=== PATIENT | female | born 1935 | race Caucasian/White ===

== ENCOUNTER 2018-04-05 15:05 | Emergency (ER) | payer MEDICARE, OTHER ==
[2018-04-05] MEDS ORDERED: MORPHINE SULFATE 10 MG/ML INJ IV ONE ×2 (16:20→19:03)
[2018-04-05] MEDS ORDERED: ONDANSETRON HCL INJ/PF 4 MG/2 ML SDV IV ONE (16:20)
--- NOTE | 2018-04-05 16:21 | ER Document Report ---
ED Medical Screen (RME) - General Chief Complaint: Fall Injury Stated Complaint: FALL/LEFT ARM PAIN Time Seen by Provider: 04/05/18 16:13 Mode of Arrival: Wheelchair Information source: Patient, Relative Notes: This is a frail 82-year-old woman who is brought to the emergency room after falling at home. Patient is sitting in the stretcher and states she tripped while in her closet. She denies any head injury. She denies any headache. She is complaining of left shoulder, left elbow, left chest wall pain. TRAVEL OUTSIDE OF THE [place] IN LAST 30 DAYS: No - Related Data Allergies/Adverse Reactions: No Known Allergies Allergy (Unverified 04/05/18 15:12) Physical Exam - Vital signs Vitals: Temp Pulse Resp BP Pulse Ox 98.3 F 59 L 18 156/63 H 100 04/05/18 15:19 04/05/18 15:19 04/05/18 15:19 04/05/18 15:19 04/05/18 15:19 Course - Vital Signs Vital signs: Temp Pulse Resp BP Pulse Ox 98.3 F 59 L 18 156/63 H 100 04/05/18 15:19 04/05/18 15:19 04/05/18 15:19 04/05/18 15:19 04/05/18 15:19 Doctor's Discharge - Discharge Referrals: DANIEL,NO [Primary Care Provider] - Follow up as needed
--- NOTE | 2018-04-05 17:35 | RADIOLOGY REPORT (SQ) ---
EXAM DESCRIPTION: ELBOW LEFT OVER 2 VIEWS COMPLETED DATE/TIME: 04/05/2018 4:03 pm REASON FOR STUDY: Fall at home-L arm pain/ can't move COMPARISON: None. NUMBER OF VIEWS: Four views. TECHNIQUE: AP, lateral, and both oblique radiographic images acquired of the left elbow. LIMITATIONS: None. FINDINGS: MINERALIZATION: Normal. BONES: No acute fracture or dislocation. No worrisome bone lesions. JOINT: No effusion. SOFT TISSUES: No soft tissue swelling. No foreign body. OTHER: No other significant finding. IMPRESSION: NEGATIVE STUDY OF THE LEFT ELBOW. NO RADIOGRAPHIC EVIDENCE OF ACUTE INJURY. TECHNICAL DOCUMENTATION: JOB ID: [id number] [employer]- All Rights Reserved Reading location - IP/workstation name: [email or web address]
--- NOTE | 2018-04-05 17:37 | RADIOLOGY REPORT (SQ) ---
EXAM DESCRIPTION: SHOULDER LEFT 2 OR MORE VIEWS COMPLETED DATE/TIME: 04/05/2018 4:03 pm REASON FOR STUDY: Fall at home-L arm pain/ can't move COMPARISON: None. NUMBER OF VIEWS: Three views. TECHNIQUE: Internal rotation, external rotation, and Y view images acquired of the left shoulder. LIMITATIONS: None. FINDINGS: MINERALIZATION: Normal. BONES: Subtle irregular linear radiolucency in the humeral neck. JOINTS: No dislocation. Degenerative changes in the glenohumeral joint with osteophytes. VISUALIZED LUNGS AND RIBS: No pneumothorax. No rib fracture. SOFT TISSUES: No radiopaque foreign body. OTHER: No other significant finding. IMPRESSION: SUBTLE NONDISPLACED FRACTURE OF THE HUMERAL NECK. TECHNICAL DOCUMENTATION: JOB ID: [id number] [employer]- All Rights Reserved Reading location - IP/workstation name: [email or web address]
--- NOTE | 2018-04-05 17:54 | RADIOLOGY REPORT (SQ) ---
EXAM DESCRIPTION: PELVIS AP COMPLETED DATE/TIME: 04/05/2018 5:01 pm REASON FOR STUDY: s/p fall COMPARISON: None. NUMBER OF VIEWS: One view TECHNIQUE: AP Pelvis LIMITATIONS: None. FINDINGS: MINERALIZATION: Normal. HIPS: No acute fracture or dislocation. No worrisome bone lesions. PELVIS AND SACRUM: No acute fracture or dislocation. No worrisome bone lesions. PUBIS AND ISCHIUM: No acute fracture. LOWER LUMBAR SPINE: No significant findings as visualized. SOFT TISSUES: Suture material throughout the pelvis. OTHER: No other significant finding. IMPRESSION: No acute finding. TECHNICAL DOCUMENTATION: JOB ID: [id number] [place]-72 2010 [employer]- All Rights Reserved Reading location - IP/workstation name: [email or web address]
--- NOTE | 2018-04-05 17:56 | RADIOLOGY REPORT (SQ) ---
EXAM DESCRIPTION: CHEST SINGLE VIEW COMPLETED DATE/TIME: 04/05/2018 5:01 pm REASON FOR STUDY: left chest wall pain COMPARISON: None. EXAM PARAMETERS: NUMBER OF VIEWS: One view. TECHNIQUE: Single frontal radiographic view of the chest acquired. RADIATION DOSE: NA LIMITATIONS: None. FINDINGS: LUNGS AND PLEURA: No opacities, masses or pneumothorax. No pleural effusion. MEDIASTINUM AND HILAR STRUCTURES: No masses. Contour normal. HEART AND VASCULAR STRUCTURES: Heart normal in size. Normal vasculature. BONES: No acute findings. HARDWARE: None in the chest. OTHER: No other significant finding. IMPRESSION: NO ACUTE RADIOGRAPHIC FINDING IN THE CHEST. TECHNICAL DOCUMENTATION: JOB ID: [id number] [place]-[id number] 2010 [employer]- All Rights Reserved Reading location - IP/workstation name: [email or web address]
[2018-04-05] MEDS ORDERED: TRAMADOL HCL 50 MG TABLET PO ONE (19:24)
[2018-04-05] MEDS ORDERED: LIDOCAINE 5% (700 MG) TRANSDERMAL ADH..PATCH TP ONE (19:25)
--- NOTE | 2018-04-05 19:28 | ER Document Report ---
ED General - General Chief Complaint: Fall Injury Stated Complaint: FALL/LEFT ARM PAIN Time Seen by Provider: 04/05/18 16:13 Mode of Arrival: Wheelchair TRAVEL OUTSIDE OF THE [place] IN LAST 30 DAYS: No - HPI Patient complains to provider of: Fall left arm pain Notes: Patient was seen today in ER after a fall. Patient was seen by the triage provider and the note is provided below This is a 82-year-old woman who is brought to the emergency room after falling at home. Patient is sitting in the stretcher and states she tripped while in her closet. She denies any head injury. She denies any headache. She is complaining of left shoulder, left elbow, left chest wall pain. Patient upon my evaluation alert and oriented. Patient states that she tripped and fell on a closet denies any head injury denies any headaches complaining of left shoulder left elbow and left chest wall pain. Patient states pain in the left shoulder especially with range of motion. Patient otherwise denies any other injuries denies any fever chills nausea vomiting diarrhea. Resting comfortably upon my evaluation. - Related Data Allergies/Adverse Reactions: No Known Allergies Allergy (Unverified 04/05/18 15:12) Past Medical History - General Information source: Patient, Relative - Social History Smoking Status: Former Smoker Family History: Reviewed & Not Pertinent Patient has suicidal ideation: No Patient has homicidal ideation: No - Past Medical History Cardiac Medical History: Reports: Hx Hypertension Renal/ Medical History: Denies: Hx Peritoneal Dialysis GI Medical History: Reports: Hx Gastroesophageal Reflux Disease Psychiatric Medical History: Reports: Hx Depression Review of Systems - Review of Systems Constitutional: No symptoms reported EENT: No symptoms reported Cardiovascular: No symptoms reported Respiratory: No symptoms reported Gastrointestinal: No symptoms reported Genitourinary: No symptoms reported Female Genitourinary: No symptoms reported Musculoskeletal: Other - Left shoulder pain Skin: No symptoms reported Hematologic/Lymphatic: No symptoms reported Neurological/Psychological: No symptoms reported -: Yes All other systems reviewed and negative Physical Exam - Vital signs Vitals: Temp Pulse Resp BP Pulse Ox 98.3 F 59 L 18 156/63 H 100 04/05/18 15:19 04/05/18 15:19 04/05/18 15:19 04/05/18 15:19 04/05/18 15:19 Interpretation: Normal - General General appearance: Appears well, Alert - HEENT Head: Normocephalic, Atraumatic Eyes: Normal Pupils: PERRL - Respiratory Respiratory status: No respiratory distress Chest status: Nontender Breath sounds: Normal Chest palpation: Normal - Cardiovascular Rhythm: Regular Heart sounds: Normal auscultation Murmur: No - Abdominal Inspection: Normal Distension: No distension Bowel sounds: Normal Tenderness: Nontender Organomegaly: No organomegaly - Back Back: Normal, Nontender - Extremities General upper extremity: Normal inspection, Tender, Normal color, Normal temperature, Other - Patient with significant pain with passive and active range of motion. Left shoulder right shoulder unaffected left shoulder also tender to palpation General lower extremity: Normal inspection, Nontender, Normal color, Normal ROM , Normal temperature, Normal weight bearing. No: Mirian's sign - Neurological Neuro grossly intact: Yes Cognition: Normal Orientation: AAOx4 Nicolette Coma Scale Eye Opening: Spontaneous Portia Coma Scale Verbal: Oriented Portia Coma Scale Motor: Obeys Commands Nicolette Coma Scale Total: 15 Speech: Normal Motor strength normal: LUE, RUE, LLE, RLE Sensory: Normal - Psychological Associated symptoms: Normal affect, Normal mood - Skin Skin Temperature: Warm Skin Moisture: Dry Skin Color: Normal Course - Re-evaluation Re-evalutation: 04/06/18 00:38 X-ray shows a proximal humeral fracture no other fracture seen on radiographical information. Patient was placed in a sling Ultram was given to the patient also educated the family members about use of Motrin also 1 the family members about GI upset and increased chance of GI bleeding. Recommend Tylenol follow-up with orthopedics as needed follow-up primary care physician patient also was warned about use of narcotic pain medication Ultram can cause increased risk of falls. Family understands all these instructions discharged home - Vital Signs Vital signs: Temp Pulse Resp BP Pulse Ox 98.3 F 81 17 188/54 H 98 04/05/18 19:47 04/05/18 19:47 04/05/18 19:47 04/05/18 19:47 04/05/18 19:47 Discharge - Discharge Clinical Impression: Fall Qualifiers: Encounter type: initial encounter Qualified Code(s): W19.XXXA - Unspecified fall, initial encounter Left humeral fracture Qualifiers: Encounter type: initial encounter Humerus Location: proximal Fracture type: closed Fracture morphology: unspecified fracture morphology Qualified Code(s): S42.202A - Unspecified fracture of upper end of left humerus, initial encounter for closed fracture Condition: Good Disposition: HOME, SELF-CARE Instructions: Family Physicians / Practices, Oral Narcotic Medication ([facility]), Fracture Proximal Humerus Additional Instructions: X-ray today shows fracture of the humerus on the left side. At this time we will treat you with a sling. I would highly recommend she follow-up with your primary care physician and orthopedic physician provided. Return to the ER if symptoms worsen. Would recommend Tylenol Motrin for pain control he may take Ultram for severe pain. Also may use ice packs warm packs. Return to ER symptoms worsen. Prescriptions: Tramadol HCl [Ultram 50 mg Tablet] 50 mg PO ASDIR PRN #20 tablet PRN Reason: Referrals: DANIEL,NO [NO LOCAL MD] - Follow up as needed KLAUS REDMAN MD [ACTIVE STAFF] - Follow up as needed
[2018-04-05 19:49] VITALS: BP 188/54
== END 2018-04-05 19:51 | disposition home or self-care (01) ==
LOC: ER 15:05
DX: S42.202A Unspecified fracture of upper end of left humerus, initial encounter for closed fracture (principal); M79.602 Pain in left arm; W01.0XXA Fall on same level from slipping, tripping and stumbling without subsequent striking against object, initial encounter; Y92.008 Other place in unspecified non-institutional (private) residence as the place of occurrence of the external cause; I10 Essential (primary) hypertension
CPT/HCPCS: 96376; 99283; 96374; 96375; 71045; 73080; 72170; 73030; J2270; J2405; A9270

== ENCOUNTER → 2018-04-07 | Outpatient (CLI) | payer MEDICARE, OTHER ==
--- NOTE | 2018-04-07 19:23 | RADIOLOGY REPORT (SQ) ---
EXAM DESCRIPTION: CT HEAD WITHOUT COMPLETED DATE/TIME: 04/07/2018 7:12 pm REASON FOR STUDY: I63.9 CEREBRAL INFARCTION, UNSPECIFIED I63.9 CEREBRAL INFARCTION, UNSPECIFIED COMPARISON: None. TECHNIQUE: Axial images acquired through the brain without intravenous contrast. Images reviewed wi th bone, brain and subdural windows. Additional sagittal and coronal reconstructions were generated. Images stored on PACS. All CT scanners at this facility use dose modulation, iterative reconstruction, and/or weight based d osing when appropriate to reduce radiation dose to as low as reasonably achievable (ALARA). [facility]: Dose Right [facility]: CareDose [facility]: Dose Right [facility]: Teradose 4D [facility]: [employer] RADIATION DOSE: CT Rad equipment meets quality standard of care and radiation dose reduction techniq ues were employed. CTDIvol: 53.2 mGy. DLP: 858 mGy-cm. mGy. LIMITATIONS: None. FINDINGS: VENTRICLES: Prominent ventricles secondary to involutional atrophy. CEREBRUM: No masses. No hemorrhage. No midline shift. No evidence for acute infarction. Few scatte red areas of low density in the white matter most likely chronic small vessel ischemic changes. CEREBELLUM: No masses. No hemorrhage. No alteration of density. No evidence for acute infarction. EXTRAAXIAL SPACES: No fluid collections. No masses. ORBITS AND GLOBE: No intra- or extraconal masses. Normal contour of globe without masses. CALVARIUM: No fracture. PARANASAL SINUSES: No fluid or mucosal thickening. SOFT TISSUES: No mass or hematoma. OTHER: No other significant finding. IMPRESSION: Mild involutional changes of aging with mild chronic microvascular ischemia. No acute i ntracranial imaging findings. EVIDENCE OF ACUTE STROKE: NO. COMMENT: Quality ID # [id number]: Final reports with documentation of one or more dose reduction techniques (e.g., Automated exposure control, adjustment of the mA and/or kV according to patient size, use of iterative reconstruction technique) TECHNICAL DOCUMENTATION: JOB ID: [id number] [employer]- All Rights Reserved Reading location - IP/workstation name: [email or web address]
== END ==
LOC: RAD 20:02
PROVIDERS: ATTEND Physician Assistant
DX: I63.9 Cerebral infarction, unspecified (principal)
CPT/HCPCS: 70450

== ENCOUNTER 2018-04-18 13:11 | Emergency (ER) | payer MEDICARE, OTHER ==
--- NOTE | 2018-04-18 13:40 | ER Document Report ---
ED Fall - General Chief Complaint: Fall Injury Stated Complaint: FALL Time Seen by Provider: 04/18/18 13:27 Notes: 82-year-old female with history of dementia tripped and fell at the [facility]. She complains of some mild left hip pain denies head or neck injury. She fell last week and fractured her left proximal humerus. She is in a sling for that she denies any increased pain from that but states the majority of her pain is in her left hip she describes it as sharp and severe with movement it is better with resting and lying still. Patient denies any chest pain or shortness of breath no headache no blurred vision no abdominal pain no nausea vomiting diarrhea. TRAVEL OUTSIDE OF THE [place] IN LAST 30 DAYS: No - Related data Allergies/Adverse Reactions: No Known Allergies Allergy (Unverified 04/05/18 15:12) Past Medical History - Social History Smoking Status: Unknown if Ever Smoked Chew tobacco use (# tins/day): No Frequency of alcohol use: None Drug Abuse: None Family History: Reviewed & Not Pertinent Patient has suicidal ideation: No Patient has homicidal ideation: No - Past Medical History Cardiac Medical History: Reports: Hx Hypertension Renal/ Medical History: Denies: Hx Peritoneal Dialysis GI Medical History: Reports: Hx Gastroesophageal Reflux Disease Psychiatric Medical History: Reports: Hx Depression Review of Systems - Review of Systems Constitutional: denies: Chills, Fever Cardiovascular: denies: Chest pain, Dyspnea Gastrointestinal: denies: Abdominal pain, Nausea, Vomiting Musculoskeletal: Joint pain Neurological/Psychological: denies: Headaches -: Yes All other systems reviewed and negative Physical Exam - Notes Notes: GENERAL_APPEARANCE: well_nourished, alert, cooperative, no_acute_distress, no_ obvious_discomfort. VITALS: reviewed, see vital signs table. HEAD: no_swelling\tenderness on the head. EYES: PERRL, EOMI, conjunctiva_clear. NOSE: no_nasal_discharge. MOUTH: (-)decreased moisture. THROAT: no_throat_inflammation, no_airway_obstruction. no_lymphadenopathy NECK: supple, no_neck_tenderness, (-)thyromegaly. BACK: no_back_tenderness. CHEST_WALL: no_chest_tenderness. LUNGS: no_wheezing, no_rales, no_rhonchi, (-)accessory muscle use, good air exchange bilateral. HEART: normal_rate, normal_rhythm ABDOMEN:soft, no_abd_tenderness, (-)guarding, (-)rebound, no_organomegaly, no_ abd_masses. EXTREMITIES: There is some tenderness of the left greater trochanter, there is no rotation or shortening, there are strong dorsalis pedis and posterior tibial pulses in the left foot. SKIN: warm, dry, good_color, no_rash. MENTAL_STATUS: speech_clear, oriented_person and place but not time, normal_ affect, responds_appropriately to questions. NEURO: Neg Motor or Sensory Deficits on exam, CN 2-12 intact, DTR 2+ symmetric x 4, No cerbellar signs Course - Re-evaluation Re-evalutation: 04/18/18 13:39 82-year-old female with a mechanical fall no syncope presents to the ER complaining of left hip pain. Get an x-ray of the left hip she complains of no head or neck pain. Has history of an old fracture on the left humerus however it is not bothering her she is in a sling. She denies injuring this. 04/18/18 15:01 X-rays show no fractures. Again clinically there is no fracture there is no rotation or shortening. Patient is comfortable going home. Patient will be discharged again there is no head or neck injuries noted no neuro deficits. - Diagnostic Test Radiology reviewed: Reports reviewed Radiology results interpreted by me: 04/18/18 15:01 Hip X-Ray 04/18/18 13:36 IMPRESSION: NEGATIVE STUDY OF THE LEFT HIP AND PELVIS. NO RADIOGRAPHIC EVIDENCE OF ACUTE INJURY. Discharge - Discharge Clinical Impression: Contusion of hip, right Qualifiers: Encounter type: initial encounter Qualified Code(s): S70.01XA - Contusion of right hip, initial encounter Condition: Good Disposition: HOME, SELF-CARE Instructions: Contusion ([facility]) Referrals: LOCALMD,NO [NO LOCAL MD] - Follow up as needed
--- NOTE | 2018-04-18 14:21 | RADIOLOGY REPORT (SQ) ---
EXAM DESCRIPTION: HIP LEFT AP/LATERAL COMPLETED DATE/TIME: 04/18/2018 2:12 pm REASON FOR STUDY: fall pain COMPARISON: 04/05/2018 NUMBER OF VIEWS: Two views. TECHNIQUE: AP pelvis and additional frog-leg view of the left hip. LIMITATIONS: None. FINDINGS: MINERALIZATION: Normal. LEFT HIP: No fracture or dislocation. No worrisome bone lesions. RIGHT HIP: No fracture or dislocation. No worrisome bone lesions. PUBIS AND ISCHIUM: No fracture. PELVIS: No fracture. SACRUM: No fracture or dislocation. No worrisome bone lesions. LOWER LUMBAR SPINE: No fracture or dislocation. No worrisome bone lesions. No significant disc disea se. SOFT TISSUES: No findings. OTHER: No other significant finding. IMPRESSION: NEGATIVE STUDY OF THE LEFT HIP AND PELVIS. NO RADIOGRAPHIC EVIDENCE OF ACUTE INJURY. TECHNICAL DOCUMENTATION: JOB ID: [id number] [employer]- All Rights Reserved Reading location - IP/workstation name: [email or web address]
[2018-04-18 15:45] VITALS: BP 116/72
== END 2018-04-18 15:44 | disposition home or self-care (01) ==
LOC: ER 13:11
DX: S70.01XA Contusion of right hip, initial encounter (principal); W01.0XXA Fall on same level from slipping, tripping and stumbling without subsequent striking against object, initial encounter; Y92.129 Unspecified place in nursing home as the place of occurrence of the external cause; I10 Essential (primary) hypertension; K21.9 Gastro-esophageal reflux disease without esophagitis
CPT/HCPCS: 99284

== ENCOUNTER 2018-05-22 20:24 | Inpatient (IN) | payer MEDICARE, OTHER ==
[2018-05-22] MEDS ORDERED: NORMAL SALINE 500 ML IV ONE (21:26)
--- NOTE | 2018-05-22 21:26 | ER Document Report ---
ED General - General Chief Complaint: Fever Stated Complaint: FEVER Time Seen by Provider: 05/22/18 20:38 Notes: 82-year-old female to the emergency department for evaluation of fever. Patient lives in a nursing facility. Has a previous stroke. Reportedly had fever while at the nursing facility and complaining of abdominal pain and achy all over. Tylenol was given prior to transport. Patient states that she feels a little bit better. TRAVEL OUTSIDE OF THE [place] IN LAST 30 DAYS: No - HPI Onset: This morning Onset/Duration: Gradual, Worse Quality of pain: Achy Severity: Moderate Pain Level: 3 Associated symptoms: Body/muscle aches, Fever - Related Data Allergies/Adverse Reactions: No Known Allergies Allergy (Unverified 04/05/18 15:12) Past Medical History - General Information source: Patient, Outside Facility Records - Social History Smoking Status: Never Smoker Frequency of alcohol use: None Drug Abuse: None Lives with: [facility] Family History: Reviewed & Not Pertinent - Past Medical History Cardiac Medical History: Reports: Hx Hypertension Neurological Medical History: Reports: Hx Cerebrovascular Accident Renal/ Medical History: Denies: Hx Peritoneal Dialysis GI Medical History: Reports: Hx Gastroesophageal Reflux Disease Psychiatric Medical History: Reports: Hx Depression Review of Systems - Review of Systems Notes: Constitutional: denies: Chills, Diaphoresis,. History of fevers, chills EENT: denies: Eye discharge, Blurred vision, Tearing, Double vision, Nose congestion, Nose discharge, Throat swelling, Mouth pain Cardiovascular: denies: Palpitations, Heart racing, Orthopnea, Dyspnea, Chest pain Respiratory: denies: Cough, Hurts to breathe, Wheezing, Shortness of breath Gastrointestinal:. Complaining of right upper quadrant abdominal pain, no vomit ing. No diarrhea. Genitourinary: denies: Burning, Dysuria, Discharge, Frequency, Flank pain, Hemat uria Musculoskeletal: denies: Joint pain, Joint swelling,. Complaining of diffuse myalgias and arthralgias Hematologic/Lymphatic: denies: Anemia, Easy bleeding, Easy bruising, Blood clots Neurological/Psychological: History of previous stroke with dysarthria. No focal weakness. Skin: No lesions, no masses, no skin breakdown, no abscesses Physical Exam - Vital signs Vitals: Temp Resp Pulse Ox 98.3 F 20 93 05/22/18 20:36 05/22/18 20:36 05/22/18 20:36 Interpretation: Normal - General General appearance: Appears well, Alert - HEENT Head: Normocephalic, Atraumatic Eyes: Normal Pupils: PERRL - Respiratory Respiratory status: No respiratory distress Chest status: Nontender Breath sounds: Normal Chest palpation: Normal - Cardiovascular Rhythm: Regular Heart sounds: Normal auscultation Murmur: No - Abdominal Inspection: Normal Distension: No distension Bowel sounds: Normal Tenderness: Tender - Right upper quadrant tenderness. Epigastric tenderness.. No: Guarding, Rebound Organomegaly: No organomegaly - Back Back: Normal, Nontender - Extremities General upper extremity: Normal inspection, Nontender, Normal color, Normal ROM, Normal temperature General lower extremity: Normal inspection, Nontender, Normal color, Normal ROM, Normal temperature. No: Mirian's sign - Neurological Neuro grossly intact: Yes Cognition: Normal Orientation: AAOx4 Russell Coma Scale Eye Opening: Spontaneous Nicolette Coma Scale Verbal: Oriented Nicolette Coma Scale Motor: Obeys Commands Nicolette Coma Scale Total: 15 Speech: Normal, Expressive aphasia - Mild but noticeable expressive aphasia Motor strength normal: LUE, RUE, LLE, RLE Sensory: Normal - Psychological Associated symptoms: Normal affect, Normal mood - Skin Skin Temperature: Warm Skin Moisture: Dry Skin Color: Normal Course - Re-evaluation Re-evalutation: 05/23/18 00:06 Laboratory 05/22/18 05/22/18 05/22/18 21:21 21:42 21:42 WBC 25.6 H RBC 4.00 Hgb 11.6 L Hct 35.0 L MCV 87 MCH 29.0 MCHC 33.2 RDW 14.9 H Plt Count 205 Total Counted 100 Seg Neutrophils % Not Reportable Seg Neuts % (Manual) 93 H Lymphocytes % Not Reportable Lymphocytes % (Manual) 4 L Monocytes % Not Reportable Monocytes % (Manual) 2 L Eosinophils % Not Reportable Eosinophils % (Manual) 0 Basophils % Not Reportable Basophils % (Manual) 1 Absolute Neutrophils Not Reportable Abs Neuts (Manual) 23.8 H Absolute Lymphocytes Not Reportable Abs Lymphs (Manual) 1.0 Absolute Monocytes Not Reportable Abs Monocytes (Manual) 0.5 Absolute Eosinophils Not Reportable Absolute Eos (Manual) 0.0 Absolute Basophils Not Reportable Abs Basophils (Manual) 0.3 H Toxic Granulation 2+ Large Platelets PRESENT Platelet Comment ADEQUATE Sodium 137.3 Potassium 4.0 Chloride 106 Carbon Dioxide 20 L Anion Gap 11 BUN 35 H Creatinine 1.24 Est GFR ( Amer) 50 L Est GFR (Non-Af Amer) 41 L Glucose 163 H Lactic Acid Calcium 9.0 Total Bilirubin 0.5 Direct Bilirubin 0.2 Neonat Total Bilirubin Not Reportable Neonat Direct Bilirubin Not Reportable Neonat Indirect Bili Not Reportable AST 55 H ALT 31 Alkaline Phosphatase 93 Creatine Kinase 960 H CK-MB (CK-2) Troponin I Total Protein 6.3 Albumin 3.6 Lipase 77.9 Urine Color YELLOW Urine Appearance SLIGHTLY-CLOUDY Urine pH 5.0 Ur Specific Ranger 1.015 Urine Protein 30 H Urine Glucose (UA) NEGATIVE Urine Ketones NEGATIVE Urine Blood NEGATIVE Urine Nitrite NEGATIVE Urine Bilirubin NEGATIVE Urine Urobilinogen NEGATIVE Ur Leukocyte Esterase SMALL H Urine WBC (Auto) 25 Urine RBC (Auto) 1 Urine Bacteria (Auto) TRACE Squamous Epi Cells Auto <1 Urine Mucus (Auto) RARE Urine Ascorbic Acid NEGATIVE 05/22/18 05/22/18 21:42 22:32 WBC RBC Hgb Hct MCV MCH MCHC RDW Plt Count Total Counted Seg Neutrophils % Seg Neuts % (Manual) Lymphocytes % Lymphocytes % (Manual) Monocytes % Monocytes % (Manual) Eosinophils % Eosinophils % (Manual) Basophils % Basophils % (Manual) Absolute Neutrophils Abs Neuts (Manual) Absolute Lymphocytes Abs Lymphs (Manual) Absolute Monocytes Abs Monocytes (Manual) Absolute Eosinophils Absolute Eos (Manual) Absolute Basophils Abs Basophils (Manual) Toxic Granulation Large Platelets Platelet Comment Sodium Potassium Chloride Carbon Dioxide Anion Gap BUN Creatinine Est GFR ( Amer) Est GFR (Non-Af Amer) Glucose Lactic Acid 0.7 Calcium Total Bilirubin Direct Bilirubin Neonat Total Bilirubin Neonat Direct Bilirubin Neonat Indirect Bili AST ALT Alkaline Phosphatase Creatine Kinase CK-MB (CK-2) 6.47 H Troponin I 0.022 Total Protein Albumin Lipase Urine Color Urine Appearance Urine pH Ur Specific Ranger Urine Protein Urine Glucose (UA) Urine Ketones Urine Blood Urine Nitrite Urine Bilirubin Urine Urobilinogen Ur Leukocyte Esterase Urine WBC (Auto) Urine RBC (Auto) Urine Bacteria (Auto) Squamous Epi Cells Auto Urine Mucus (Auto) Urine Ascorbic Acid 05/23/18 00:19 Abdomen Ultrasound 05/22/18 21:25 IMPRESSION: The gallbladder could not be visualized, due to body habitus and inability to position patient correctly. The common bile duct is normal. 7 cm cyst in the right kidney. Chest X-Ray 05/22/18 21:25 IMPRESSION: No acute cardiopulmonary abnormality. Abdomen/Pelvis CT 05/22/18 22:54 IMPRESSION: Fluid within the proximal two thirds of the gallbladder which could be secondary to an underlying diarrheal process. Possible developing bibasilar pneumonia. Patient has pneumonia seen on CT scan. Her oxygen saturations are dropping now also placing on oxygen. More likely this represents a source of her leukocytos is and fever. At this time will start her on antibiotics and admit the patient to the hospital medicine service for further treatment. - Vital Signs Vital signs: Temp Pulse Resp BP Pulse Ox 98.3 F 15 142/58 H 94 05/22/18 20:36 05/22/18 21:01 05/22/18 21:01 05/22/18 21:01 - Laboratory Result Diagrams: 05/22/18 21:42 05/22/18 21:42 Laboratory results interpreted by me: 05/22/18 05/22/18 05/22/18 21:21 21:42 21:42 WBC 25.6 H Hgb 11.6 L Hct 35.0 L RDW 14.9 H Seg Neuts % (Manual) 93 H Lymphocytes % (Manual) 4 L Monocytes % (Manual) 2 L Abs Neuts (Manual) 23.8 H Abs Basophils (Manual) 0.3 H Carbon Dioxide 20 L BUN 35 H Est GFR ( Amer) 50 L Est GFR (Non-Af Amer) 41 L Glucose 163 H AST 55 H Creatine Kinase 960 H CK-MB (CK-2) Urine Protein 30 H Ur Leukocyte Esterase SMALL H 05/22/18 21:42 WBC Hgb Hct RDW Seg Neuts % (Manual) Lymphocytes % (Manual) Monocytes % (Manual) Abs Neuts (Manual) Abs Basophils (Manual) Carbon Dioxide BUN Est GFR ( Amer) Est GFR (Non-Af Amer) Glucose AST Creatine Kinase CK-MB (CK-2) 6.47 H Urine Protein Ur Leukocyte Esterase - EKG Interpretation by Nv EKG shows normal: Sinus rhythm, Rhododendron, QRS Complexes, ST-T Waves Rhododendron/QRS: RBBB When compared to previous EKG there are: No significant change Discharge - Discharge Clinical Impression: Lower lobe pneumonia Qualifiers: Pneumonia type: due to unspecified organism Laterality: bilateral Qualified Code(s): J18.1 - Lobar pneumonia, unspecified organism Leukocytosis Qualifiers: Leukocytosis type: bandemia Qualified Code(s): D72.825 - Bandemia Condition: Good Disposition: ADMITTED INPATIENT [facility] Admitted: Telemetry Referrals: LIAN TERRY MD [Primary Care Provider] - Follow up as needed
[2018-05-22 21:39] LABS: APPEARANCE,URINE SLIGHTLY-CLOUDY; BILIRUBIN,URINE NEGATIVE (NEGATIVE); COLOR,URINE YELLOW; GLUCOSE, URINE NEGATIVE (NEGATIVE); KETONES,URINE NEGATIVE (NEGATIVE); LEUKOCYTE ESTERASE,URINE SMALL (NEGATIVE); NITRITE,URINE NEGATIVE (NEGATIVE); PROTEIN,URINE 30 mg/dL (NEGATIVE); URINE SPECIFIC GRAVITY 1.015; UROBILINOGEN,URINE NEGATIVE mg/dL (<2.0)
[2018-05-22 21:53] LABS: HEMOGLOBIN 11.6 g/dL (12.0-15.5); MEAN CORPUSCULAR HGB CONC 33.2 g/dL (32.0-36.0); MEAN CORPUSCULAR VOLUME 87 fl (80-97); PLATELET COUNT 205 10^3/uL (150-450); RED CELL DISTRIBUTION WIDTH 14.9 % (11.5-14.0); WHITE BLOOD COUNT 25.6 10^3/uL (4.0-10.5)
--- NOTE | 2018-05-22 22:00 | RADIOLOGY REPORT (SQ) ---
XR CHEST 1 VIEW HISTORY: Chest pain. COMPARISON: 04/05/2018 FINDINGS: The cardiomediastinal silhouette is unremarkable. The lungs are clear. No pleural effusion or pneumothorax is identified. IMPRESSION: No acute cardiopulmonary abnormality.
[2018-05-22 22:15] LABS: ABSOLUTE MONOCYTES # (MANUAL) 0.5 10^3/uL (0.1-1.4); ABSOLUTE NEUTROPHILS# (MANUAL) 23.8 10^3/uL (1.7-8.2); BASOPHILS % (MANUAL) 1 % (0-2); EOSINOPHILS % (MANUAL) 0 % (0-6); LYMPHOCYTES % (MANUAL) 4 % (13-45); MONOCYTES % (MANUAL) 2 % (3-13); PLATELET COMMENT ADEQUATE; PLATELET LARGE PRESENT; SEGMENTED NEUTROPHILS % (MAN) 93 % (42-78); TOTAL CELLS COUNTED 100; TOXIC GRANULATION 2+
[2018-05-22 22:16] LABS: ALANINE AMINOTRANSFERASE 31 U/L (9-52); ALBUMIN 3.6 g/dL (3.5-5.0); ALKALINE PHOSPHATASE 93 U/L (38-126); ANION GAP 11 (5-19); ASPARTATE AMINO TRANSFERASE 55 U/L (14-36); BILIRUBIN,DIRECT 0.2 mg/dL (0.0-0.4); BILIRUBIN,TOTAL 0.5 mg/dL (0.2-1.3); BLOOD UREA NITROGEN 35 mg/dL (7-20); CARBON DIOXIDE 20 mmol/L (22-30); CHLORIDE 106 mmol/L (98-107); CREATINE KINASE 960 U/L (30-135); GLUCOSE 163 mg/dL (75-110); LIPASE 77.9 U/L (23-300); SODIUM 137.3 mmol/L (137-145); TOTAL PROTEIN 6.3 g/dL (6.3-8.2)
[2018-05-22 22:27] LABS: CREATINE KINASE MB 6.47 ng/mL (<4.55); TROPONIN I 0.022 ng/mL
--- NOTE | 2018-05-22 22:37 | RADIOLOGY REPORT (SQ) ---
US ABDOMEN LIMITED HISTORY: Right upper quadrant pain. COMPARISON: None. TECHNIQUE: Grayscale and color Doppler imaging of the right upper quadrant was performed. FINDINGS: The liver measures 13.9 cm. The liver has normal echotexture without focal lesion identified. The main portal vein has normal hepatopedal flow. The gallbladder is poorly visualized. The common bile duct measures 3 mm in caliber. The pancreas is not visualized due to overlying bowel gas. The right kidney measures 10.4 cm in length, without hydronephrosis. There is a 7 cm anechoic cyst in the lower pole. The visualized portions of the IVC and aorta are patent. IMPRESSION: The gallbladder could not be visualized, due to body habitus and inability to position patient correctly. The common bile duct is normal. 7 cm cyst in the right kidney.
[2018-05-22] MEDS ORDERED: CEFTRIAXONE INJ 1000 MG VIAL IV ONE (22:55)
[2018-05-22] MEDS ORDERED: KETOROLAC TROMETHAMINE INJ/PF 30 MG/1 ML SDV IV ONE (23:33)
--- NOTE | 2018-05-22 23:51 | RADIOLOGY REPORT (SQ) ---
CLINICAL HISTORY: abd pain, fever, leukocytosis COMPARISON: None. TECHNIQUE: CT ABDOMEN PELVIS WITH IV CONTRAST on 05/22/2018 10:54 PM [employer] This exam was performed according to our departmental dose-optimization program, which includes automated exposure control, adjustment of the mA and/or kV according to patient size and/or use of iterative reconstruction technique. FINDINGS: There is a small consolidation in the posterior medial right lower lobe. There are scattered tree-in-bud nodular opacities in the lower lobes. Abdomen: The liver is normal in appearance. There is no biliary dilatation. Cholecystectomy was performed. Spleen is normal in size. Pancreas is atrophic. Adrenal glands are normal. Kidneys are mildly atrophic. There is a large simple cyst in the lower pole of the right kidney measuring 6.7 cm. Abdominal aorta is normal in course and caliber without aneurysm. There is no free air. There is no retroperitoneal adenopathy.Abdominal aorta is densely calcified without aneurysm. Pelvis: There are scattered fluid throughout the proximal two thirds of the colon. Urinary bladder is unremarkable. There is no free fluid. Apparent hysterectomy was performed. Appendix is normal. Skeleton: There are no acute osseous findings. No suspicious bony lesions. IMPRESSION: Fluid within the proximal two thirds of the gallbladder which could be secondary to an underlying diarrheal process. Possible developing bibasilar pneumonia.
[2018-05-23] MEDS ORDERED: AZITHROMYCIN INJ 500 MG VIAL IV ONE ×2 (00:19→21:38)
[2018-05-23] MEDS ORDERED: NORMAL SALINE 1000 ML 1,000 ML IV ONE (00:26)
[2018-05-23] MEDS ORDERED: FLUTICASONE NASAL SPRAY 50 MCG/SPRY 120 SPRAY/16 GM NASL ONE (01:30)
[2018-05-23] MEDS ORDERED: CHLORPHENIRAMINE MALEATE 4 MG TABLET PO ONE (01:30)
[2018-05-23] MEDS: METRONIDAZOLE 500 MG TABLET PO SCH ×4 (01:55→19:36)
[2018-05-23] MEDS ORDERED: CHLORPHENIRAMINE MALEATE 4 MG TABLET ONE (03:51)
[2018-05-23] MEDS ORDERED: FLUTICASONE NASAL SPRAY 50 MCG/SPRY 120 SPRAY/16 GM ONE (03:51)
[2018-05-23 05:21] LABS: HEMATOCRIT 30.8 % (36.0-47.0); HEMOGLOBIN 10.3 g/dL (12.0-15.5); MEAN CORPUSCULAR HEMOGLOBIN 29.3 pg (27.0-33.4); MEAN CORPUSCULAR HGB CONC 33.4 g/dL (32.0-36.0); MEAN CORPUSCULAR VOLUME 88 fl (80-97); PLATELET COUNT 164 10^3/uL (150-450); RED BLOOD COUNT 3.51 10^6/uL (3.72-5.28); RED CELL DISTRIBUTION WIDTH 14.8 % (11.5-14.0)
[2018-05-23 05:45] LABS: ANION GAP 9 (5-19); BLOOD UREA NITROGEN 31 mg/dL (7-20); CALCIUM 8.4 mg/dL (8.4-10.2); CARBON DIOXIDE 21 mmol/L (22-30); CHLORIDE 109 mmol/L (98-107); GLUCOSE 163 mg/dL (75-110); POTASSIUM 3.6 mmol/L (3.6-5.0); SODIUM 138.9 mmol/L (137-145)
--- NOTE | 2018-05-23 05:56 | PDOC H&P ---
History of Present Illness Admission Date/PCP: 05/23/18 00:46 LIAN TERRY MD Patient complains of: Abdominal pain History of Present Illness: LIAN JO is a 82 year old female assisted living resident with past medical history of CVA and dementia. She presents with abdominal pain. In the emergency room she has a CT that suggest colitis and possible early bilateral pneumonia. She started on empiric antibiotics and referred to the hospitalist for admission. Patient is a poor historian but does endorse abdominal pain and diarrhea. No recent history of antibiotics, denies nausea or vomiting. Past Medical History Cardiac Medical History: Reports: Hypertension Pulmonary Medical History: Reports: Chronic Obstructive Pulmonary Disease (COPD) Neurological Medical History: Reports: Ischemic CVA GI Medical History: Reports: Gastroesophageal Reflux Disease Psychiatric Medical History: Reports: Depression Social History Information Source: Patient, Emergency Med Personnel, [facility], [facility]1983 Records Lives with: [facility] Smoking Status: Never Smoker - Advance Directive Resuscitation Status: Full Code Family History Family History: Other - Unobtainable Parental Family History Reviewed: No - Unobtainable Children Family History Reviewed: No - Unobtainable Sibling(s) Family History Reviewed.: No - Unobtainable Medication/Allergy Home Medications: Tramadol HCl [Ultram 50 mg Tablet] 50 mg PO ASDIR PRN #20 tablet 04/05/18 Allergies/Adverse Reactions: No Known Allergies Allergy (Unverified 04/05/18 15:12) Review of Systems ROS unobtainable: Due to mental status - Dementia Physical Exam Vital Signs: Temp Pulse Resp BP Pulse Ox 98.3 F 63 16 132/76 H 96 05/23/18 02:30 05/23/18 03:52 05/23/18 02:30 05/23/18 02:30 05/23/18 02:30 Intake & Output 05/21/18 05/22/18 05/23/18 11:59 11:59 11:59 Intake Total 500 Balance 500 Weight 43.1 kg General appearance: PRESENT: cooperative, mild distress, thin Head exam: PRESENT: atraumatic, normocephalic Eye exam: PRESENT: conjunctiva pink, EOMI, PERRLA. ABSENT: scleral icterus Ear exam: PRESENT: normal external ear exam Mouth exam: PRESENT: moist, tongue midline Neck exam: ABSENT: carotid bruit, JVD, lymphadenopathy, thyromegaly Respiratory exam: PRESENT: accessory muscle use, crackles, prolonged expiratory phas. ABSENT: rales, rhonchi, wheezes Cardiovascular exam: PRESENT: RRR, tachycardia. ABSENT: diastolic murmur, rubs, systolic murmur Pulses: PRESENT: normal dorsalis pedis pul Vascular exam: PRESENT: normal capillary refill GI/Abdominal exam: PRESENT: distended, hyperactive bowel sounds, normal bowel sounds, soft, tenderness. ABSENT: guarding, mass, organolmegaly, rebound Rectal exam: PRESENT: deferred Extremities exam: PRESENT: full ROM. ABSENT: calf tenderness, clubbing, pedal edema Neurological exam: PRESENT: alert, awake, oriented to person, oriented to place, oriented to time, oriented to situation, CN II-XII grossly intact. ABSENT: motor sensory deficit Psychiatric exam: PRESENT: appropriate affect, normal mood. ABSENT: homicidal ideation, suicidal ideation Skin exam: PRESENT: dry, intact, warm. ABSENT: cyanosis, rash Results Laboratory Results: 05/23/18 04:24 05/22/18 05/22/18 05/22/18 21:21 21:42 21:42 WBC 25.6 H RBC 4.00 Hgb 11.6 L Hct 35.0 L MCV 87 MCH 29.0 MCHC 33.2 RDW 14.9 H Plt Count 205 Seg Neutrophils % Not Reportable Lymphocytes % Not Reportable Monocytes % Not Reportable Eosinophils % Not Reportable Basophils % Not Reportable Absolute Neutrophils Not Reportable Absolute Lymphocytes Not Reportable Absolute Monocytes Not Reportable Absolute Eosinophils Not Reportable Absolute Basophils Not Reportable Sodium 137.3 Potassium 4.0 Chloride 106 Carbon Dioxide 20 L Anion Gap 11 BUN 35 H Creatinine 1.24 Est GFR ( Amer) 50 L Est GFR (Non-Af Amer) 41 L Glucose 163 H Lactic Acid Calcium 9.0 Total Bilirubin 0.5 AST 55 H ALT 31 Alkaline Phosphatase 93 Total Protein 6.3 Albumin 3.6 Lipase 77.9 Urine Color YELLOW Urine Appearance SLIGHTLY-CLOUDY Urine pH 5.0 Ur Specific [place] 1.015 Urine Protein 30 H Urine Glucose (UA) NEGATIVE Urine Ketones NEGATIVE Urine Blood NEGATIVE Urine Nitrite NEGATIVE Ur Leukocyte Esterase SMALL H Urine WBC (Auto) 25 Urine RBC (Auto) 1 05/22/18 05/23/18 05/23/18 22:32 04:24 04:24 WBC RBC Hgb Hct MCV MCH MCHC RDW Plt Count Seg Neutrophils % Not Reportable Lymphocytes % Not Reportable Monocytes % Not Reportable Eosinophils % Not Reportable Basophils % Not Reportable Absolute Neutrophils Not Reportable Absolute Lymphocytes Not Reportable Absolute Monocytes Not Reportable Absolute Eosinophils Not Reportable Absolute Basophils Not Reportable Sodium 138.9 Potassium 3.6 Chloride 109 H Carbon Dioxide 21 L Anion Gap 9 BUN 31 H Creatinine 1.03 Est GFR ( Amer) > 60 Est GFR (Non-Af Amer) 51 L Glucose 163 H Lactic Acid 0.7 Calcium 8.4 Total Bilirubin AST ALT Alkaline Phosphatase Total Protein Albumin Lipase Urine Color Urine Appearance Urine pH Ur Specific [place] Urine Protein Urine Glucose (UA) Urine Ketones Urine Blood Urine Nitrite Ur Leukocyte Esterase Urine WBC (Auto) Urine RBC (Auto) 05/22/18 05/22/18 21:42 21:42 Creatine Kinase 960 H CK-MB (CK-2) 6.47 H Troponin I 0.022 Impressions: Abdomen Ultrasound 05/22/18 21:25 IMPRESSION: The gallbladder could not be visualized, due to body habitus and inability to position patient correctly. The common bile duct is normal. 7 cm cyst in the right kidney. Chest X-Ray 05/22/18 21:25 IMPRESSION: No acute cardiopulmonary abnormality. Abdomen/Pelvis CT 05/22/18 22:54 IMPRESSION: Fluid within the proximal two thirds of the gallbladder which could be secondary to an underlying diarrheal process. Possible developing bibasilar pneumonia. Assessment & Plan - Diagnosis (1) Colitis Is this a current diagnosis for this admission?: Yes Plan: Bowel rest, Flagyl and Levaquin. Follow-up stool culture and CBC (2) Lower lobe pneumonia Qualifiers: Pneumonia type: due to unspecified organism Laterality: bilateral Qualified Code(s): J18.1 - Lobar pneumonia, unspecified organism Is this a current diagnosis for this admission?: Yes Plan: Albuterol and Atrovent, incentive spirometry, empiric antibiotics, follow-up CBC consider follow-up chest x-ray. (3) Dementia Is this a current diagnosis for this admission?: Yes Plan: Supportive care - Time Time Spent: 30 to 50 Minutes - Inpatient Certification Medical Necessity: Need Close Monitoring Due to Risk of Patient Decompensation
[2018-05-23 06:00] LABS: ABSOLUTE LYMPHOCYTES# (MANUAL) 1.3 10^3/uL (0.5-4.7); ABSOLUTE MONOCYTES # (MANUAL) 0.6 10^3/uL (0.1-1.4); ABSOLUTE NEUTROPHILS# (MANUAL) 19.1 10^3/uL (1.7-8.2); BASOPHILS % (MANUAL) 0 % (0-2); EOSINOPHILS % (MANUAL) 0 % (0-6); LYMPHOCYTES % (MANUAL) 6 % (13-45); MONOCYTES % (MANUAL) 3 % (3-13); SEGMENTED NEUTROPHILS % (MAN) 91 % (42-78); TOTAL CELLS COUNTED 100
[2018-05-23 06:01] LABS: PLATELET COMMENT ADEQUATE; RBC MORPHOLOGY COMMENT NORMO-CYTIC/CHROMIC
[2018-05-23] MEDS: HEPARIN SOD (PORCINE) 5,000 UNIT/ML 1 ML SYRINGE SUBCUT SCH ×3 (06:08→21:34)
--- NOTE | 2018-05-23 06:34 | EKG REPORT ---
SEVERITY:- ABNORMAL ECG - SINUS RHYTHM RBBB AND LAFB : Confirmed by: Fabian Muhammad MD 23-May-2018 06:33:05
[2018-05-23] MEDS: IPRATROPIUM/ALBUTEROL 0.5-2.5 MG/3 ML AMPUL NEB SCH ×2 (08:22→15:47)
[2018-05-23] MEDS ORDERED: AZITHROMYCIN 500 MG in DEXTROSE 5%-WATER 250 ML IV SCH (10:00)
[2018-05-23] MEDS: FLUTICASONE NASAL SPRAY 50 MCG/SPRY 120 SPRAY/16 GM NASL SCH ×2 (10:39→21:33)
[2018-05-23] MEDS: CHLORPHENIRAMINE MALEATE 4 MG TABLET PO SCH ×3 (10:39→20:13)
[2018-05-23] MEDS ORDERED: CEFTRIAXONE SODIUM 1,000 MG in DEXTROSE 5%-WATER 50 ML IV SCH (18:00)
[2018-05-23] MEDS: ACETAMINOPHEN 325 MG TABLET PO PRN (20:12)
[2018-05-23] MEDS ORDERED: AMLODIPINE BESYLATE 5 MG TABLET PO ONE (21:15)
[2018-05-23] MEDS ORDERED: CEFTRIAXONE 1 GM/D5W RTU 1 GM/50 ML RTUPB IV SCH (22:00)
[2018-05-23] MEDS: AZITHROMYCIN 500 MG in DEXTROSE 5%-WATER 250 ML IV SCH (22:06)
[2018-05-24] MEDS: METRONIDAZOLE 500 MG TABLET PO SCH ×3 (00:23→11:27)
[2018-05-24] MEDS: IPRATROPIUM/ALBUTEROL 0.5-2.5 MG/3 ML AMPUL NEB SCH ×4 (01:18→20:17)
[2018-05-24] MEDS: CHLORPHENIRAMINE MALEATE 4 MG TABLET PO SCH ×4 (02:02→21:30)
[2018-05-24] MEDS: HEPARIN SOD (PORCINE) 5,000 UNIT/ML 1 ML SYRINGE SUBCUT SCH ×3 (05:26→21:24)
[2018-05-24 05:31] LABS: ABSOLUTE BASOPHILS # (AUTO) 0.1 10^3/uL (0.0-0.2); ABSOLUTE LYMPHOCYTES (AUTO) 1.2 10^3/uL (0.5-4.7); ABSOLUTE MONOCYTES (AUTO) 0.8 10^3/uL (0.1-1.4); ABSOLUTE NEUT (AUTO) 9.7 10^3/uL (1.7-8.2); BASOPHILS % (AUTO) 0.5 % (0-2); EOSINOPHILS % (AUTO) 0.2 % (0-6); HEMOGLOBIN 9.3 g/dL (12.0-15.5); LYMPHOCYTES % (AUTO) 10.3 % (13-45); MEAN CORPUSCULAR HEMOGLOBIN 29.4 pg (27.0-33.4); MEAN CORPUSCULAR HGB CONC 33.2 g/dL (32.0-36.0); MEAN CORPUSCULAR VOLUME 88 fl (80-97); MONOCYTES % (AUTO) 7.1 % (3-13); PLATELET COUNT 143 10^3/uL (150-450); RED BLOOD COUNT 3.17 10^6/uL (3.72-5.28); SEGMENTED NEUTROPHILS % (AUTO) 81.9 % (42-78); TOTAL CELLS COUNTED % (AUTO) 100 %; WHITE BLOOD COUNT 11.8 10^3/uL (4.0-10.5)
[2018-05-24 05:53] LABS: ANION GAP 8 (5-19); BLOOD UREA NITROGEN 22 mg/dL (7-20); CALCIUM 8.3 mg/dL (8.4-10.2); CARBON DIOXIDE 20 mmol/L (22-30); CHLORIDE 116 mmol/L (98-107); GLUCOSE 120 mg/dL (75-110); POTASSIUM 3.6 mmol/L (3.6-5.0); SODIUM 143.5 mmol/L (137-145)
--- NOTE | 2018-05-24 09:35 | RADIOLOGY REPORT (SQ) ---
EXAM DESCRIPTION: CT CHEST WITHOUT COMPLETED DATE/TIME: 05/24/2018 9:06 am REASON FOR STUDY: assess consolidation, lung opacities COMPARISON: None. TECHNIQUE: CT scan performed of the chest without intravenous contrast. Images reviewed with lung, soft tissue and bone windows. Reconstructed coronal and sagittal MPR images reviewed. All images st ored on PACS. All CT scanners at this facility use dose modulation, iterative reconstruction, and/or weight based d osing when appropriate to reduce radiation dose to as low as reasonably achievable (ALARA). [facility]: Dose Right [facility]: CareDose [facility]: Dose Right [facility]: Teradose 4D [facility]: [employer] RADIATION DOSE: CT Rad equipment meets quality standard of care and radiation dose reduction techniq ues were employed. CTDIvol: 8.4 mGy. DLP: 303 mGy-cm. mGy. LIMITATIONS: Image artifacts secondary to arm positioning in gantry clear FINDINGS: LUNGS AND PLEURA: Extensive consolidation within the right lower lobe. Small right pleura l effusion. Left basilar atelectasis in left pleural effusion. Ground-glass infiltrates within the right upper lobe and acinar infiltrates within the left upper and left lower lobes. Left pleural eff usion. HILAR AND MEDIASTINAL STRUCTURES: No identified masses or abnormal nodes. No obvious aneurysm. Prom inent endobronchial secretions within the right lower lobe bronchus. HEART AND VASCULAR STRUCTURES: No aneurysm. No pericardial effusion. Atherosclerotic change of the thoracic aorta. Coronary artery calcification. Mitral annulus calcification. Aortic valvular calci fication. UPPER ABDOMEN: No significant findings. Limited exam. THYROID AND OTHER SOFT TISSUES: No masses. No adenopathy. BONES: No significant finding. HARDWARE: None in the chest. IMPRESSION: Extensive consolidation within the right lower lobe with prominent endobronchial secreti ons/plugging right lower lobe bronchus. Multifocal ground-glass and acinar type infiltrates noted wi thin the right upper lobe, left upper lobe, and left lower lobe. Small pleural effusions. TECHNICAL DOCUMENTATION: JOB ID: [id number] Quality ID # [id number]: Final reports with documentation of one or more dose reduction techniques (e.g., Au tomated exposure control, adjustment of the mA and/or kV according to patient size, use of iterative reconstruction technique) 2010 [employer]- All Rights Reserved Reading location - IP/workstation name: [email or web address]
[2018-05-24] MEDS: AMLODIPINE BESYLATE 5 MG TABLET PO SCH ×2 (10:08→17:14)
[2018-05-24] MEDS: METHYLPREDNISOLONE INJ 40 MG/1 ML SDV IV SCH ×2 (10:08→21:23)
[2018-05-24] MEDS: FLUTICASONE NASAL SPRAY 50 MCG/SPRY 120 SPRAY/16 GM NASL SCH ×2 (10:08→21:23)
[2018-05-24] MEDS ORDERED: VANCOMYCIN HCL 0 MG in DEXTROSE 5%-WATER 250 ML IV NR (15:15)
--- NOTE | 2018-05-24 16:08 | PDOC PROGRESS REPORT ---
Subjective Progress Note for:: 05/24/18 Subjective:: This is a 82 year old female assisted living resident with past medical history of CVA and dementia who initially presented with diarrhea was admitted for colitis and bilateral pneumonia. She was started on Rocephin and Flagyl. No acute event overnight. This morning, she is saturating well on 2L of O2 via NC but she says she still feels short of breath. She is also having minimally productive cough. Denies chest pain. Chest CT done today and results discussed with patient and family including son/DPOA on bedside. She is a full code. Reason For Visit: PNEUMONIA Physical Exam Vital Signs: Temp Pulse Resp BP Pulse Ox 97.8 F 93 18 156/41 H 97 05/24/18 15:20 05/24/18 15:20 05/24/18 15:20 05/24/18 15:20 05/24/18 15:20 Intake & Output 05/23/18 05/24/18 05/25/18 06:59 06:59 06:59 Intake Total 600 730 Output Total 400 Balance 600 330 Weight 95 lb 0.308 oz 112 lb 10.499 oz General appearance: PRESENT: no acute distress, well-developed, well-nourished Head exam: PRESENT: atraumatic, normocephalic Eye exam: PRESENT: conjunctiva pink, EOMI, PERRLA. ABSENT: scleral icterus Ear exam: PRESENT: normal external ear exam Mouth exam: PRESENT: moist, tongue midline Neck exam: ABSENT: carotid bruit, JVD, lymphadenopathy, thyromegaly Respiratory exam: PRESENT: crackles, decreased breath sounds - dec BS on the right base, rales, rhonchi. ABSENT: wheezes Pulses: PRESENT: normal dorsalis pedis pul GI/Abdominal exam: PRESENT: normal bowel sounds, soft. ABSENT: distended, guarding, mass, organolmegaly, rebound, tenderness Rectal exam: PRESENT: deferred Neurological exam: PRESENT: alert, awake, oriented to person, oriented to place Results Laboratory Results: 05/24/18 04:49 05/24/18 04:49 05/24/18 05/24/18 05/24/18 04:49 04:49 11:50 WBC 11.8 H RBC 3.17 L Hgb 9.3 L Hct 28.0 L MCV 88 MCH 29.4 MCHC 33.2 RDW 15.0 H Plt Count 143 L Seg Neutrophils % 81.9 H Lymphocytes % 10.3 L Monocytes % 7.1 Eosinophils % 0.2 Basophils % 0.5 Absolute Neutrophils 9.7 H Absolute Lymphocytes 1.2 Absolute Monocytes 0.8 Absolute Eosinophils 0.0 Absolute Basophils 0.1 Sodium 143.5 Potassium 3.6 Chloride 116 H Carbon Dioxide 20 L Anion Gap 8 BUN 22 H Creatinine 1.07 Est GFR ( Amer) 59 L Est GFR (Non-Af Amer) 49 L Glucose 120 H Calcium 8.3 L Stool for White Cells NO WBCs SEEN 05/22/18 05/22/18 21:42 21:42 Creatine Kinase 960 H CK-MB (CK-2) 6.47 H Troponin I 0.022 Impressions: Abdomen Ultrasound 05/22/18 21:25 IMPRESSION: The gallbladder could not be visualized, due to body habitus and inability to position patient correctly. The common bile duct is normal. 7 cm cyst in the right kidney. Chest X-Ray 05/22/18 21:25 IMPRESSION: No acute cardiopulmonary abnormality. Abdomen/Pelvis CT 05/22/18 22:54 IMPRESSION: Fluid within the proximal two thirds of the gallbladder which could be secondary to an underlying diarrheal process. Possible developing bibasilar pneumonia. Chest CT 05/24/18 07:00 IMPRESSION: Extensive consolidation within the right lower lobe with prominent endobronchial secretions/plugging right lower lobe bronchus. Multifocal ground- glass and acinar type infiltrates noted within the right upper lobe, left upper lobe, and left lower lobe. Small pleural effusions. Assessment & Plan - Diagnosis (1) Acute respiratory failure with hypoxia Is this a current diagnosis for this admission?: Yes Plan: Secondary to multifocal pneumonia. Saturating well on 2L via NC but she does report SOB. Will order BIPAP to alternate with NC, 4 hrs on/4 hrs off. (2) HCAP (healthcare-associated pneumonia) Is this a current diagnosis for this admission?: Yes Plan: As per number #1. Low threshold for ICU transfer if patient develops desaturation or worsening SOB. Chest CT ordered today and shows multifocal pneumonia with extensive right lung consolidation and possible endobronchial p lugging. Patient did have recent hospitalization. Will broaden antibiotic coverage and switch to vancomycin and Zosyn. Will consult pulmonology for further recommendations. Continue breathing treatments. Will add mucomyst as well. (3) Colitis Is this a current diagnosis for this admission?: Yes Plan: Resolving. No recurrence of diarrhea or abdominal pain. SHAJI Flagyl. Switch antibiotics as mentioned above. - Time Time Spent with patient: 25-34 minutes
[2018-05-24] MEDS: PIPERACILLIN SODIUM/TAZOBACTAM 3.375 GM in NORMAL SALINE 100 ML IV SCH (17:14)
[2018-05-24] MEDS ORDERED: VANCOMYCIN HCL INJ 1000 MG VIAL IV PRN (18:19)
[2018-05-24] MEDS ORDERED: VANCOMYCIN HCL 750 MG in DEXTROSE 5%-WATER 250 ML IV ONE (19:00)
[2018-05-24] MEDS ORDERED: VANCOMYCIN HCL INJ 1000 MG VIAL ONE (20:13)
[2018-05-24] MEDS: ACETYLCYSTEINE 10% NEB 400 MG/4 ML VIAL NEB SCH (20:17)
[2018-05-24] MEDS: AZITHROMYCIN 500 MG in DEXTROSE 5%-WATER 250 ML IV SCH (23:30)
[2018-05-25] MEDS: PIPERACILLIN SODIUM/TAZOBACTAM 3.375 GM in NORMAL SALINE 100 ML IV SCH ×4 (00:37→17:43)
[2018-05-25] MEDS: IPRATROPIUM/ALBUTEROL 0.5-2.5 MG/3 ML AMPUL NEB SCH ×4 (02:39→20:16)
[2018-05-25] MEDS: ACETYLCYSTEINE 10% NEB 400 MG/4 ML VIAL NEB SCH ×4 (02:39→20:16)
[2018-05-25] MEDS: HEPARIN SOD (PORCINE) 5,000 UNIT/ML 1 ML SYRINGE SUBCUT SCH ×3 (05:09→21:36)
[2018-05-25] MEDS: CHLORPHENIRAMINE MALEATE 4 MG TABLET PO SCH ×3 (05:16→17:51)
[2018-05-25] MEDS: FLUTICASONE NASAL SPRAY 50 MCG/SPRY 120 SPRAY/16 GM NASL SCH ×2 (10:10→21:44)
[2018-05-25] MEDS: METHYLPREDNISOLONE INJ 40 MG/1 ML SDV IV SCH ×2 (10:11→21:44)
[2018-05-25] MEDS: AMLODIPINE BESYLATE 5 MG TABLET PO SCH ×2 (10:11→17:44)
--- NOTE | 2018-05-25 12:07 | PDOC PROGRESS REPORT ---
Subjective Progress Note for:: 05/25/18 Subjective:: This is a 82 year old female assisted living resident with past medical history of CVA and dementia who initially presented with diarrhea was admitted for colitis and bilateral pneumonia. She was started on Rocephin and Flagyl. Chest CT done yesterday 05/24 shows extensive right sided consolidation, multifocal PNA and possible endobronchial plugging. Results discussed with patient and family including son/DPOA on bedside. She is a full code. No acute event overnight. This morning, she is saturating well on 2L of O2 via NC. She says she still has SOB but this has not worsened from yesterday. She is not tachypneic. She continues to have minimally productive cough. Denies chest pain. Reason For Visit: PNEUMONIA Physical Exam Vital Signs: Temp Pulse Resp BP Pulse Ox 98.1 F 62 18 146/43 H 100 05/25/18 11:26 05/25/18 11:26 05/25/18 11:26 05/25/18 11:26 05/25/18 11:26 Intake & Output 05/24/18 05/25/18 05/26/18 06:59 06:59 06:59 Intake Total 730 1010 100 Output Total 400 200 Balance 330 810 100 Weight 112 lb 10.499 oz 119 lb 4.321 oz General appearance: PRESENT: no acute distress, well-developed, well-nourished Head exam: PRESENT: atraumatic, normocephalic Eye exam: PRESENT: conjunctiva pink, EOMI, PERRLA. ABSENT: scleral icterus Ear exam: PRESENT: normal external ear exam Mouth exam: PRESENT: moist, tongue midline Neck exam: ABSENT: carotid bruit, JVD, lymphadenopathy, thyromegaly Respiratory exam: PRESENT: crackles, decreased breath sounds - slightly dec BS ont he right base. ABSENT: rales, rhonchi, wheezes Pulses: PRESENT: normal dorsalis pedis pul GI/Abdominal exam: PRESENT: normal bowel sounds, soft. ABSENT: distended, guarding, mass, organolmegaly, rebound, tenderness Rectal exam: PRESENT: deferred Neurological exam: PRESENT: awake, oriented to person, oriented to place, CN II- XII grossly intact. ABSENT: motor sensory deficit Results Laboratory Results: 05/24/18 04:49 05/24/18 04:49 05/24/18 11:50 Stool for White Cells NO WBCs SEEN 05/22/18 21:21 Clean Catch Midstream Urine Culture - Final Mixed Urogenital Shanel 05/22/18 12 21:42 21:42 Creatine Kinase 960 H CK-MB (CK-2) 6.47 H Troponin I 0.022 Impressions: Abdomen Ultrasound 05/22/18 21:25 IMPRESSION: The gallbladder could not be visualized, due to body habitus and inability to position patient correctly. The common bile duct is normal. 7 cm cyst in the right kidney. Chest X-Ray 05/22/18 21:25 IMPRESSION: No acute cardiopulmonary abnormality. Abdomen/Pelvis CT 05/22/18 22:54 IMPRESSION: Fluid within the proximal two thirds of the gallbladder which could be secondary to an underlying diarrheal process. Possible developing bibasilar pneumonia. Chest CT 05/24/18 07:00 IMPRESSION: Extensive consolidation within the right lower lobe with prominent endobronchial secretions/plugging right lower lobe bronchus. Multifocal ground- glass and acinar type infiltrates noted within the right upper lobe, left upper lobe, and left lower lobe. Small pleural effusions. Assessment & Plan - Diagnosis (1) Acute respiratory failure with hypoxia Is this a current diagnosis for this admission?: Yes Plan: Secondary to multifocal pneumonia. Currently saturating well on 2L via NC but s he does report SOB. BIPAP to alternate with NC, 4 hrs on/4 hrs off. (2) HCAP (healthcare-associated pneumonia) Is this a current diagnosis for this admission?: Yes Plan: As per number #1. Low threshold for ICU transfer if patient develops desaturation or worsening SOB. Chest CT ordered and shows multifocal pneumonia with extensive right lung consolidation and possible endobronchial plugging. Patient did have recent hospitalization. Broaden antibiotic coverage and switched to vancomycin and Zosyn. Also on azithromycin. Will consult pulmonology for further recommendations. Continue breathing treatments. Will add mucomyst as well. 05/25/18. Hold vancomycin for now as creatinine has slightly trended up. Continue Zosyn and azithromycin. Discussed with Dr. Weller over phone. (3) Colitis Is this a current diagnosis for this admission?: Yes Plan: Resolved. No recurrence of diarrhea or abdominal pain. Flagyl DCed. Switched antibiotics as mentioned above. - Time Time Spent with patient: 25-34 minutes
[2018-05-25] MEDS ORDERED: AMLODIPINE BESYLATE 5 MG TABLET PO SCH (18:00)
[2018-05-25] MEDS: BIMATOPROST 0.01% OPH SOLN 2.5 ML/BOTTLE OS SCH (21:44)
[2018-05-25] MEDS: AZITHROMYCIN 500 MG in DEXTROSE 5%-WATER 250 ML IV SCH (21:47)
[2018-05-25] MEDS ORDERED: VANCOMYCIN HCL 500 MG in DEXTROSE 5%-WATER 100 ML IV SCH (22:00)
[2018-05-26] MEDS: IPRATROPIUM/ALBUTEROL 0.5-2.5 MG/3 ML AMPUL NEB SCH ×3 (01:02→16:24)
[2018-05-26] MEDS: ACETYLCYSTEINE 10% NEB 400 MG/4 ML VIAL NEB SCH ×4 (01:02→19:21)
[2018-05-26] MEDS: PIPERACILLIN SODIUM/TAZOBACTAM 3.375 GM in NORMAL SALINE 100 ML IV SCH ×4 (01:22→17:51)
[2018-05-26] MEDS: CHLORPHENIRAMINE MALEATE 4 MG TABLET PO SCH ×4 (01:23→17:50)
[2018-05-26] MEDS: LEVOTHYROXINE SODIUM 0.088 MG TABLET PO SCH (05:04)
[2018-05-26] MEDS: HEPARIN SOD (PORCINE) 5,000 UNIT/ML 1 ML SYRINGE SUBCUT SCH ×3 (05:05→21:54)
[2018-05-26] MEDS: CALCIUM CARBONATE 250 MG/VITAMIN D3 125 UNIT TABLET PO SCH (09:17)
[2018-05-26] MEDS: FLUTICASONE NASAL SPRAY 50 MCG/SPRY 120 SPRAY/16 GM NASL SCH ×2 (09:17→21:54)
[2018-05-26] MEDS: METHYLPREDNISOLONE INJ 40 MG/1 ML SDV IV SCH ×2 (09:17→21:55)
[2018-05-26] MEDS: AMLODIPINE BESYLATE 5 MG TABLET PO SCH ×2 (09:17→17:53)
[2018-05-26] MEDS: ASPIRIN 81 MG TABLET, CHEWABLE PO SCH (09:17)
[2018-05-26] MEDS: SENNOSIDES/DOCUSATE 8.6-50 MG 1 EACH TABLET PO SCH (09:17)
[2018-05-26] MEDS: SERTRALINE HCL 50 MG TABLET PO SCH (09:18)
[2018-05-26] MEDS ORDERED: (PENDING PHARMACY ID) (Calcium Carbonate/Vitamin D3 [Calcium 600-Vit D3 200 Tablet] 1 EACH PO SCH (10:00)
[2018-05-26] MEDS ORDERED: (PENDING PHARMACY ID) (Sennosides [Senna] 8.6 MG) PO SCH (10:00)
[2018-05-26] MEDS: IPRATROPIUM/ALBUTEROL 0.5-2.5 MG/3 ML AMPUL NEB PRN ×2 (14:13→19:22)
--- NOTE | 2018-05-26 15:09 | PDOC PROGRESS REPORT ---
Subjective Progress Note for:: 05/26/18 Subjective:: -This is a 82 year old female assisted living resident with past medical history of CVA and dementia who initially presented with diarrhea was admitted for colitis and bilateral pneumonia. She was started on Rocephin and Flagyl. Chest CT done yesterday 05/24 shows extensive right sided consolidation, multifocal PNA and possible endobronchial plugging. Results discussed with patient and family including son/DPOA on bedside. She is a full code. No acute event overnight. This morning, she is saturating well on 2L of O2 via NC. She says she still has SOB but this has not worsened from yesterday. She is not tachypneic. She continues to have minimally productive cough. Denies chest pain. 05/26/2018-no acute events in the last 24 hours. Afebrile. Pulse ox is 96% on 2 L. Patient is on Rocephin and Flagyl for colitis/bilateral pneumonia. Reason For Visit: PNEUMONIA Physical Exam Vital Signs: Temp Pulse Resp BP Pulse Ox 97.8 F 67 16 146/51 H 96 05/26/18 11:17 05/26/18 14:13 05/26/18 14:13 05/26/18 11:17 05/26/18 14:13 Intake & Output 05/25/18 05/26/18 05/27/18 06:59 06:59 06:59 Intake Total 1010 1387 100 Output Total 200 Balance 810 1387 100 Weight 54.1 kg 54.1 kg General appearance: PRESENT: no acute distress Head exam: PRESENT: atraumatic Eye exam: PRESENT: PERRLA Mouth exam: PRESENT: moist Neck exam: ABSENT: carotid bruit, JVD, lymphadenopathy, thyromegaly Respiratory exam: PRESENT: crackles, decreased breath sounds Cardiovascular exam: PRESENT: tachycardia GI/Abdominal exam: PRESENT: normal bowel sounds, soft. ABSENT: distended, guarding, mass, organolmegaly, rebound, tenderness Neurological exam: PRESENT: alert, awake, oriented to person, oriented to place, oriented to time, oriented to situation, CN II-XII grossly intact. ABSENT: motor sensory deficit Psychiatric exam: PRESENT: appropriate affect, normal mood. ABSENT: homicidal ideation, suicidal ideation Results Laboratory Results: 05/24/18 04:49 05/24/18 04:49 05/22/18 21:21 Clean Catch Midstream Urine Culture - Final Mixed Urogenital Shanel 05/22/18 05/22/18 21:42 21:42 Creatine Kinase 960 H CK-MB (CK-2) 6.47 H Troponin I 0.022 Impressions: Abdomen Ultrasound 05/22/18 21:25 IMPRESSION: The gallbladder could not be visualized, due to body habitus and inability to position patient correctly. The common bile duct is normal. 7 cm cyst in the right kidney. Chest X-Ray 05/22/18 21:25 IMPRESSION: No acute cardiopulmonary abnormality. Abdomen/Pelvis CT 05/22/18 22:54 IMPRESSION: Fluid within the proximal two thirds of the gallbladder which could be secondary to an underlying diarrheal process. Possible developing bibasilar pneumonia. Chest CT 05/24/18 07:00 IMPRESSION: Extensive consolidation within the right lower lobe with prominent endobronchial secretions/plugging right lower lobe bronchus. Multifocal ground- glass and acinar type infiltrates noted within the right upper lobe, left upper lobe, and left lower lobe. Small pleural effusions. Assessment & Plan - Diagnosis (1) Acute respiratory failure with hypoxia Is this a current diagnosis for this admission?: Yes Plan: Secondary to multifocal pneumonia. Currently saturating well on 2L via NC but she does report SOB. BIPAP to alternate with NC, 4 hrs on/4 hrs off. 05/26/2018-acute respiratory failure with hypoxia secondary to multifocal pneumonia. Patient is on Rocephin. Today's pulse ox is 96% on 2 L. (2) Colitis Is this a current diagnosis for this admission?: Yes Plan: Resolved. No recurrence of diarrhea or abdominal pain. Flagyl DCed. Switched antibiotics as mentioned above. 05/26/2018 colitis was resolved. Flagyl was discontinued. Presently on azithromycin and Zosyn. (3) HCAP (healthcare-associated pneumonia) Is this a current diagnosis for this admission?: Yes Plan: As per number #1. Low threshold for ICU transfer if patient develops desaturation or worsening SOB. Chest CT ordered and shows multifocal pneumonia with extensive right lung consolidation and possible endobronchial plugging. Patient did have recent hospitalization. Broaden antibiotic coverage and switched to vancomycin and Zosyn. Also on azithromycin. Will consult pulmonology for further recommendations. Continue breathing treatments. Will add mucomyst as well. 05/25/18. Hold vancomycin for now as creatinine has slightly trended up. Continue Zosyn and azithromycin. Discussed with Dr. Weller over phone. 05/26/2018 patient failed outpatient antibiotic therapy for pneumonia. CT scan shows multifocal pneumonia with extensive right lung consolidation with possible endobronchial plugging. And history of hospitalization. #1 Zosyn and azith romycin. pulmonary on board. is on board. - Time Time Spent with patient: 15-24 minutes Medications reviewed and adjusted accordingly: Yes Anticipated discharge: Home
[2018-05-26] MEDS: BIMATOPROST 0.01% OPH SOLN 2.5 ML/BOTTLE OS SCH (21:54)
[2018-05-26] MEDS: AZITHROMYCIN 500 MG in DEXTROSE 5%-WATER 250 ML IV SCH (22:06)
[2018-05-27] MEDS: CHLORPHENIRAMINE MALEATE 4 MG TABLET PO SCH ×4 (00:37→17:09)
[2018-05-27] MEDS: PIPERACILLIN SODIUM/TAZOBACTAM 3.375 GM in NORMAL SALINE 100 ML IV SCH ×4 (00:37→17:09)
[2018-05-27] MEDS: IPRATROPIUM/ALBUTEROL 0.5-2.5 MG/3 ML AMPUL NEB SCH ×3 (01:11→16:16)
[2018-05-27] MEDS: ACETYLCYSTEINE 10% NEB 400 MG/4 ML VIAL NEB SCH ×4 (01:11→19:54)
[2018-05-27] MEDS: HEPARIN SOD (PORCINE) 5,000 UNIT/ML 1 ML SYRINGE SUBCUT SCH ×3 (05:16→21:24)
[2018-05-27] MEDS: LEVOTHYROXINE SODIUM 0.088 MG TABLET PO SCH (05:24)
[2018-05-27] MEDS: CALCIUM CARBONATE 250 MG/VITAMIN D3 125 UNIT TABLET PO SCH (11:14)
[2018-05-27] MEDS: AMLODIPINE BESYLATE 5 MG TABLET PO SCH ×2 (11:14→17:09)
[2018-05-27] MEDS: SERTRALINE HCL 50 MG TABLET PO SCH (11:15)
[2018-05-27] MEDS: ASPIRIN 81 MG TABLET, CHEWABLE PO SCH (11:15)
[2018-05-27] MEDS: FLUTICASONE NASAL SPRAY 50 MCG/SPRY 120 SPRAY/16 GM NASL SCH ×2 (11:15→21:31)
[2018-05-27] MEDS: SENNOSIDES/DOCUSATE 8.6-50 MG 1 EACH TABLET PO SCH (11:15)
[2018-05-27] MEDS: METHYLPREDNISOLONE INJ 40 MG/1 ML SDV IV SCH ×2 (11:15→21:31)
--- NOTE | 2018-05-27 13:25 | PDOC PROGRESS REPORT ---
Subjective Progress Note for:: 05/27/18 Subjective:: -This is a 82 year old female assisted living resident with past medical history of CVA and dementia who initially presented with diarrhea was admitted for colitis and bilateral pneumonia. She was started on Rocephin and Flagyl. Chest CT done yesterday 05/24 shows extensive right sided consolidation, multifocal PNA and possible endobronchial plugging. Results discussed with patient and family including son/DPOA on bedside. She is a full code. No acute event overnight. This morning, she is saturating well on 2L of O2 via NC. She says she still has SOB but this has not worsened from yesterday. She is not tachypneic. She continues to have minimally productive cough. Denies chest pain. 05/26/2018-no acute events in the last 24 hours. Afebrile. Pulse ox is 96% on 2 L. Patient is on Rocephin and Flagyl for colitis/bilateral pneumonia. 05/27/2018-no acute events in the last 24 hours. Physical therapy try to work with the patient but because of the increased weakness and gait instability the recommendation is to put the patient on bedrest. To the family about moving her from assisted living to acute rehab for a short physical therapy and they agreed to proceed with the new plan. Reason For Visit: PNEUMONIA Physical Exam Vital Signs: Temp Pulse Resp BP Pulse Ox 97.9 F 64 22 H 165/32 H 100 05/27/18 11:18 05/27/18 11:18 05/27/18 11:18 05/27/18 11:18 05/27/18 11:18 Intake & Output 05/26/18 05/27/18 05/28/18 06:59 06:59 06:59 Intake Total 1387 1419 100 Balance 1387 1419 100 Weight 54.1 kg 58.1 kg General appearance: PRESENT: no acute distress Head exam: PRESENT: atraumatic Eye exam: PRESENT: PERRLA Mouth exam: PRESENT: moist Respiratory exam: PRESENT: decreased breath sounds Cardiovascular exam: PRESENT: RRR. ABSENT: diastolic murmur, rubs, systolic [place] Pulses: PRESENT: normal dorsalis pedis pul Neurological exam: PRESENT: alert, awake, oriented to person, oriented to place, oriented to time, oriented to situation, CN II-XII grossly intact. ABSENT: motor sensory deficit Psychiatric exam: PRESENT: appropriate affect, normal mood. ABSENT: homicidal ideation, suicidal ideation Results Laboratory Results: 05/24/18 04:49 05/24/18 04:49 05/22/18 05/22/18 21:42 21:42 Creatine Kinase 960 H CK-MB (CK-2) 6.47 H Troponin I 0.022 Impressions: Abdomen Ultrasound 05/22/18 21:25 IMPRESSION: The gallbladder could not be visualized, due to body habitus and inability to position patient correctly. The common bile duct is normal. 7 cm cyst in the right kidney. Chest X-Ray 05/22/18 21:25 IMPRESSION: No acute cardiopulmonary abnormality. Abdomen/Pelvis CT 05/22/18 22:54 IMPRESSION: Fluid within the proximal two thirds of the gallbladder which could be secondary to an underlying diarrheal process. Possible developing bibasilar pneumonia. Chest CT 05/24/18 07:00 IMPRESSION: Extensive consolidation within the right lower lobe with prominent endobronchial secretions/plugging right lower lobe bronchus. Multifocal ground- glass and acinar type infiltrates noted within the right upper lobe, left upper lobe, and left lower lobe. Small pleural effusions. Assessment & Plan - Diagnosis (1) Acute respiratory failure with hypoxia Is this a current diagnosis for this admission?: Yes Plan: Secondary to multifocal pneumonia. Currently saturating well on 2L via NC but she does report SOB. BIPAP to alternate with NC, 4 hrs on/4 hrs off. 05/26/2018-acute respiratory failure with hypoxia secondary to multifocal pneumonia. Patient is on Rocephin. Today's pulse ox is 96% on 2 L. 05/27/2018-patient is admitted with acute respiratory failure with hypoxia secondary to multifocal pneumonia patient is on IV Rocephin 1 g daily patient is comfortably in the bed on 2 L oxygen. T-max is 97.9. To continue the present management .cultures are negative so far. (2) Colitis Is this a current diagnosis for this admission?: Yes Plan: Resolved. No recurrence of diarrhea or abdominal pain. Flagyl DCed. Switched a ntibiotics as mentioned above. 05/26/2018 colitis was resolved. Flagyl was discontinued. Presently on azithromycin and Zosyn. 05/27/2018 colitis was resolved Flagyl was discontinued 2 days ago. (3) HCAP (healthcare-associated pneumonia) Is this a current diagnosis for this admission?: Yes Plan: As per number #1. Low threshold for ICU transfer if patient develops desaturation or worsening SOB. Chest CT ordered and shows multifocal pneumonia with extensive right lung consolidation and possible endobronchial plugging. Patient did have recent hospitalization. Broaden antibiotic coverage and switched to vancomycin and Zosyn. Also on azithromycin. Will consult pulmonology for further recommendations. Continue breathing treatments. Will add mucomyst as well. 05/25/18. Hold vancomycin for now as creatinine has slightly trended up. Continue Zosyn and azithromycin. Discussed with Dr. Weller over phone. 05/26/2018 patient failed outpatient antibiotic therapy for pneumonia. CT scan shows multifocal pneumonia with extensive right lung consolidation with possible endobronchial plugging. And history of hospitalization. #1 Zosyn and azithromycin. pulmonary on board. is on board. 2017 patient came from assisted living to the hospital. CT scan shows multifocal pneumonia with extensive right lung consolidation with possible endobronchial plugging. Patient is on Zosyn and azithromycin. Blood cultures are negative so far. - Time Time Spent with patient: 15-24 minutes Medications reviewed and adjusted accordingly: Yes Anticipated discharge: [facility]
[2018-05-27] MEDS: IPRATROPIUM/ALBUTEROL 0.5-2.5 MG/3 ML AMPUL NEB PRN ×2 (13:56→19:55)
[2018-05-27] MEDS: BIMATOPROST 0.01% OPH SOLN 2.5 ML/BOTTLE OS SCH (21:32)
[2018-05-27] MEDS: AZITHROMYCIN 500 MG in DEXTROSE 5%-WATER 250 ML IV SCH (21:36)
[2018-05-28] MEDS: PIPERACILLIN SODIUM/TAZOBACTAM 3.375 GM in NORMAL SALINE 100 ML IV SCH ×4 (00:59→17:26)
[2018-05-28] MEDS: CHLORPHENIRAMINE MALEATE 4 MG TABLET PO SCH ×4 (00:59→17:26)
[2018-05-28] MEDS: ACETYLCYSTEINE 10% NEB 400 MG/4 ML VIAL NEB SCH ×4 (01:38→19:49)
[2018-05-28] MEDS: IPRATROPIUM/ALBUTEROL 0.5-2.5 MG/3 ML AMPUL NEB SCH ×3 (01:38→16:37)
[2018-05-28] MEDS: HEPARIN SOD (PORCINE) 5,000 UNIT/ML 1 ML SYRINGE SUBCUT SCH ×3 (05:43→21:14)
[2018-05-28] MEDS: LEVOTHYROXINE SODIUM 0.088 MG TABLET PO SCH (05:44)
[2018-05-28] MEDS: METHYLPREDNISOLONE INJ 40 MG/1 ML SDV IV SCH ×2 (09:14→21:15)
[2018-05-28] MEDS: SENNOSIDES/DOCUSATE 8.6-50 MG 1 EACH TABLET PO SCH (09:14)
[2018-05-28] MEDS: CALCIUM CARBONATE 250 MG/VITAMIN D3 125 UNIT TABLET PO SCH (09:14)
[2018-05-28] MEDS: AMLODIPINE BESYLATE 5 MG TABLET PO SCH ×2 (09:14→17:24)
[2018-05-28] MEDS: SERTRALINE HCL 50 MG TABLET PO SCH (09:14)
[2018-05-28] MEDS: ASPIRIN 81 MG TABLET, CHEWABLE PO SCH (09:14)
[2018-05-28] MEDS: FLUTICASONE NASAL SPRAY 50 MCG/SPRY 120 SPRAY/16 GM NASL SCH ×2 (09:26→21:14)
[2018-05-28 11:32] LABS: HEMOGLOBIN 9.7 g/dL (12.0-15.5); MEAN CORPUSCULAR HEMOGLOBIN 29.3 pg (27.0-33.4); MEAN CORPUSCULAR HGB CONC 33.4 g/dL (32.0-36.0); MEAN CORPUSCULAR VOLUME 88 fl (80-97); PLATELET COUNT 225 10^3/uL (150-450); RED BLOOD COUNT 3.31 10^6/uL (3.72-5.28); RED CELL DISTRIBUTION WIDTH 15.2 % (11.5-14.0); WHITE BLOOD COUNT 10.6 10^3/uL (4.0-10.5)
[2018-05-28 11:59] LABS: ANION GAP 9 (5-19); BLOOD UREA NITROGEN 20 mg/dL (7-20); CALCIUM 8.7 mg/dL (8.4-10.2); CARBON DIOXIDE 21 mmol/L (22-30); CHLORIDE 114 mmol/L (98-107); GLUCOSE 106 mg/dL (75-110)
--- NOTE | 2018-05-28 13:02 | PDOC PROGRESS REPORT ---
Subjective Progress Note for:: 05/28/18 Subjective:: -This is a 82 year old female assisted living resident with past medical history of CVA and dementia who initially presented with diarrhea was admitted for colitis and bilateral pneumonia. She was started on Rocephin and Flagyl. Chest CT done yesterday 05/24 shows extensive right sided consolidation, multifocal PNA and possible endobronchial plugging. Results discussed with patient and family including son/DPOA on bedside. She is a full code. No acute event overnight. This morning, she is saturating well on 2L of O2 via NC. She says she still has SOB but this has not worsened from yesterday. She is not tachypneic. She continues to have minimally productive cough. Denies chest pain. 05/26/2018-no acute events in the last 24 hours. Afebrile. Pulse ox is 96% on 2 L. Patient is on Rocephin and Flagyl for colitis/bilateral pneumonia. 05/27/2018-no acute events in the last 24 hours. Physical therapy try to work with the patient but because of the increased weakness and gait instability the recommendation is to put the patient on bedrest. To the family about moving her from assisted living to acute rehab for a short physical therapy and they agreed to proceed with the new plan. 05/28/2018-The nurse notified me around 11:00 that patient has a small brief episode of a cardiac arrhythmia. Patient is asymptomatic at the time. The rhythm strips gross cardiac arrhythmia less than 6 seconds. I am going to order 12-lead EKG. given to see the patient talk to the patient patient denies any chest pains denies any shortness of breath. Reason For Visit: PNEUMONIA Physical Exam Vital Signs: Temp Pulse Resp BP Pulse Ox 98.3 F 63 16 182/43 H 97 05/28/18 12:00 05/28/18 12:00 05/28/18 12:00 05/28/18 12:00 05/28/18 12:00 Intake & Output 05/27/18 05/28/18 05/29/18 06:59 06:59 06:59 Intake Total 1419 1775 Balance 1419 1775 Weight 58.1 kg 57.6 kg General appearance: PRESENT: no acute distress Head exam: PRESENT: atraumatic Eye exam: PRESENT: PERRLA Mouth exam: PRESENT: moist Neck exam: ABSENT: carotid bruit, JVD, lymphadenopathy, thyromegaly Respiratory exam: PRESENT: decreased breath sounds Cardiovascular exam: PRESENT: tachycardia GI/Abdominal exam: PRESENT: normal bowel sounds, soft. ABSENT: distended, guarding, mass, organolmegaly, rebound, tenderness Neurological exam: PRESENT: alert, awake, oriented to person, oriented to place, oriented to time, oriented to situation, CN II-XII grossly intact. ABSENT: motor sensory deficit Psychiatric exam: PRESENT: appropriate affect, normal mood. ABSENT: homicidal ideation, suicidal ideation Results Laboratory Results: 05/28/18 11:00 05/28/18 11:00 05/28/18 05/28/18 11:00 11:00 WBC 10.6 H RBC 3.31 L Hgb 9.7 L Hct 29.0 L MCV 88 MCH 29.3 MCHC 33.4 RDW 15.2 H Plt Count 225 Sodium 144.0 Potassium 4.0 Chloride 114 H Carbon Dioxide 21 L Anion Gap 9 BUN 20 Creatinine 0.98 Est GFR ( Amer) > 60 Est GFR (Non-Af Amer) 54 L Glucose 106 Calcium 8.7 Magnesium 1.9 05/22/18 23:17 Blood Blood Culture - Final NO GROWTH IN 5 DAYS 05/22/18 22:32 Blood Blood Culture - Final NO GROWTH IN 5 DAYS 05/22/18 05/22/18 21:42 21:42 Creatine Kinase 960 H CK-MB (CK-2) 6.47 H Troponin I 0.022 Impressions: Abdomen Ultrasound 05/22/18 21:25 IMPRESSION: The gallbladder could not be visualized, due to body habitus and inability to position patient correctly. The common bile duct is normal. 7 cm cyst in the right kidney. Chest X-Ray 05/22/18 21:25 IMPRESSION: No acute cardiopulmonary abnormality. Abdomen/Pelvis CT 05/22/18 22:54 IMPRESSION: Fluid within the proximal two thirds of the gallbladder which could be secondary to an underlying diarrheal process. Possible developing bibasilar pneumonia. Chest CT 05/24/18 07:00 IMPRESSION: Extensive consolidation within the right lower lobe with prominent endobronchial secretions/plugging right lower lobe bronchus. Multifocal ground- glass and acinar type infiltrates noted within the right upper lobe, left upper lobe, and left lower lobe. Small pleural effusions. Assessment & Plan - Diagnosis (1) Acute respiratory failure with hypoxia Is this a current diagnosis for this admission?: Yes Plan: Secondary to multifocal pneumonia. Currently saturating well on 2L via NC but she does report SOB. BIPAP to alternate with NC, 4 hrs on/4 hrs off. 05/26/2018-acute respiratory failure with hypoxia secondary to multifocal pneumonia. Patient is on Rocephin. Today's pulse ox is 96% on 2 L. 05/27/2018-patient is admitted with acute respiratory failure with hypoxia secondary to multifocal pneumonia patient is on IV Rocephin 1 g daily patient is comfortably in the bed on 2 L oxygen. T-max is 97.9. To continue the present management .cultures are negative so far. 05/28/2018-patient has multifocal pneumonia and on IV Rocephin 1 g daily. Pulse ox is 95% on 2 L. Denies any shortness of breath or chest pains. These cultures are negative so far. T-max is 98.3. (2) Colitis Is this a current diagnosis for this admission?: Yes Plan: Resolved. No recurrence of diarrhea or abdominal pain. Flagyl DCed. Switched antibiotics as mentioned above. 05/26/2018 colitis was resolved. Flagyl was discontinued. Presently on azithromycin and Zosyn. 05/27/2018 colitis was resolved Flagyl was discontinued 2 days ago. 05/28/2018 patient denies any abdominal pain diarrhea. Colitis is resolved. (3) HCAP (healthcare-associated pneumonia) Is this a current diagnosis for this admission?: Yes Plan: As per number #1. Low threshold for ICU transfer if patient develops desaturation or worsening SOB. Chest CT ordered and shows multifocal pneumonia with extensive right lung consolidation and possible endobronchial plugging. Patient did have recent hospitalization. Broaden antibiotic coverage and switched to vancomycin and Zosyn. Also on azithromycin. Will consult pulmonology for further recommendations. Continue breathing treatments. Will add mucomyst as well. 05/25/18. Hold vancomycin for now as creatinine has slightly trended up. Continue Zosyn and azithromycin. Discussed with Dr. Weller over phone. 05/26/2018 patient failed outpatient antibiotic therapy for pneumonia. CT scan shows multifocal pneumonia with extensive right lung consolidation with possible endobronchial plugging. And history of hospitalization. #1 Zosyn and azithromycin. pulmonary on board. is on board. 05/27 patient came from assisted living to the hospital. CT scan shows multifocal pneumonia with extensive right lung consolidation with possible endobronchial plugging. Patient is on Zosyn and azithromycin. Blood cultures are negative so far. 05/28/2018-on Zosyn and azithromycin. The blood cultures are negative so far. CT scan shows multifocal pneumonia with right lung consolidation. Planning to continue the present management. - Time Time Spent with patient: 15-24 minutes Medications reviewed and adjusted accordingly: Yes Anticipated discharge: SNF
[2018-05-28 13:41] LABS: CREATINE KINASE MB 0.85 ng/mL (<4.55)
[2018-05-28 13:44] LABS: TROPONIN I < 0.012 ng/mL
[2018-05-28] MEDS: IPRATROPIUM/ALBUTEROL 0.5-2.5 MG/3 ML AMPUL NEB PRN ×2 (14:06→19:49)
--- NOTE | 2018-05-28 16:16 | RADIOLOGY REPORT (SQ) ---
EXAM DESCRIPTION: CHEST 2 VIEWS COMPLETED DATE/TIME: 05/28/2018 4:00 pm REASON FOR STUDY: pneumonia COMPARISON: 05/22/2018 EXAM PARAMETERS: NUMBER OF VIEWS: two views TECHNIQUE: Digital Frontal and Lateral radiographic views of the chest acquired. RADIATION DOSE: NA LIMITATIONS: none FINDINGS: LUNGS AND PLEURA: Right lower lobe airspace disease and small pleural effusion. Suspected airspace disease in the right upper lobe as well. Left lung is clear. MEDIASTINUM AND HILAR STRUCTURES: No masses or contour abnormalities. HEART AND VASCULAR STRUCTURES: Heart normal size. No evidence for failure. BONES: No acute findings. HARDWARE: None in the chest. OTHER: No other significant finding. IMPRESSION: Right upper and lower lobe pneumonia. TECHNICAL DOCUMENTATION: JOB ID: [id number] [employer]- All Rights Reserved Reading location - IP/workstation name: [email or web address]
[2018-05-28 19:29] LABS: CREATINE KINASE MB 0.85 ng/mL (<4.55)
[2018-05-28 19:35] LABS: TROPONIN I < 0.012 ng/mL
[2018-05-28] MEDS: ACETAMINOPHEN 325 MG TABLET PO PRN (20:28)
[2018-05-28] MEDS: AZITHROMYCIN 500 MG in DEXTROSE 5%-WATER 250 ML IV SCH (21:15)
[2018-05-28] MEDS: BIMATOPROST 0.01% OPH SOLN 2.5 ML/BOTTLE OS SCH (21:15)
[2018-05-29] MEDS: IPRATROPIUM/ALBUTEROL 0.5-2.5 MG/3 ML AMPUL NEB SCH ×2 (00:16→08:10)
[2018-05-29] MEDS: PIPERACILLIN SODIUM/TAZOBACTAM 3.375 GM in NORMAL SALINE 100 ML IV SCH ×4 (00:37→18:35)
[2018-05-29] MEDS: CHLORPHENIRAMINE MALEATE 4 MG TABLET PO SCH ×4 (00:37→18:37)
[2018-05-29 01:02] LABS: CREATINE KINASE MB 0.82 ng/mL (<4.55)
[2018-05-29 01:04] LABS: TROPONIN I < 0.012 ng/mL
[2018-05-29] MEDS: ACETYLCYSTEINE 10% NEB 400 MG/4 ML VIAL NEB SCH ×4 (01:54→20:42)
[2018-05-29] MEDS: IPRATROPIUM/ALBUTEROL 0.5-2.5 MG/3 ML AMPUL NEB PRN ×2 (01:54→14:34)
[2018-05-29] MEDS: LEVOTHYROXINE SODIUM 0.088 MG TABLET PO SCH (05:13)
[2018-05-29] MEDS: HEPARIN SOD (PORCINE) 5,000 UNIT/ML 1 ML SYRINGE SUBCUT SCH ×3 (05:16→21:33)
[2018-05-29] MEDS: ASPIRIN 81 MG TABLET, CHEWABLE PO SCH (09:18)
[2018-05-29] MEDS: AMLODIPINE BESYLATE 5 MG TABLET PO SCH ×2 (09:18→18:35)
[2018-05-29] MEDS: CALCIUM CARBONATE 250 MG/VITAMIN D3 125 UNIT TABLET PO SCH (09:18)
[2018-05-29] MEDS: SENNOSIDES/DOCUSATE 8.6-50 MG 1 EACH TABLET PO SCH (09:18)
[2018-05-29] MEDS: SERTRALINE HCL 50 MG TABLET PO SCH (09:18)
[2018-05-29] MEDS: METHYLPREDNISOLONE INJ 40 MG/1 ML SDV IV SCH ×2 (09:18→21:32)
[2018-05-29] MEDS: FLUTICASONE NASAL SPRAY 50 MCG/SPRY 120 SPRAY/16 GM NASL SCH ×2 (11:50→21:33)
[2018-05-29] MEDS ORDERED: ACETYLCYSTEINE 10% NEB 400 MG/4 ML VIAL NEB ONE (14:00)
--- NOTE | 2018-05-29 14:55 | EKG REPORT ---
SEVERITY:- ABNORMAL ECG - SINUS RHYTHM RIGHT BUNDLE BRANCH BLOCK PROBABLE INFERIOR INFARCT, AGE INDETERMINATE NONSPECIFIC T CHANGES : Confirmed by: Corina Grove 29-May-2018 14:54:31
--- NOTE | 2018-05-29 15:13 | PDOC PROGRESS REPORT ---
Subjective Progress Note for:: 05/29/18 Subjective:: -This is a 82 year old female assisted living resident with past medical history of CVA and dementia who initially presented with diarrhea was admitted for colitis and bilateral pneumonia. She was started on Rocephin and Flagyl. Chest CT done yesterday 05/24 shows extensive right sided consolidation, multifocal PNA and possible endobronchial plugging. Results discussed with patient and family including son/DPOA on bedside. She is a full code. No acute event overnight. This morning, she is saturating well on 2L of O2 via NC. She says she still has SOB but this has not worsened from yesterday. She is not tachypneic. She continues to have minimally productive cough. Denies chest pain. 05/26/2018-no acute events in the last 24 hours. Afebrile. Pulse ox is 96% on 2 L. Patient is on Rocephin and Flagyl for colitis/bilateral pneumonia. 05/27/2018-no acute events in the last 24 hours. Physical therapy try to work with the patient but because of the increased weakness and gait instability the recommendation is to put the patient on bedrest. To the family about moving her from assisted living to acute rehab for a short physical therapy and they agreed to proceed with the new plan. 05/28/2018-The nurse notified me around 11:00 that patient has a small brief episode of a cardiac arrhythmia. Patient is asymptomatic at the time. The rhythm strips gross cardiac arrhythmia less than 6 seconds. I am going to order 12-lead EKG. given to see the patient talk to the patient patient denies any chest pains denies any shortness of breath. 05/29/2018-patient has not had 3 episodes of cardiac arrhythmia few seconds of V. tach patient is asymptomatic. Cardiology consult was requested and Dr. Bustillo looked at the strip and recommended a change from DuoNeb to Xopenex nebulizations. Reason For Visit: PNEUMONIA Physical Exam Vital Signs: Temp Pulse Resp BP Pulse Ox 98.1 F 67 18 166/46 H 98 05/29/18 11:11 05/29/18 14:34 05/29/18 14:34 05/29/18 11:11 05/29/18 14:34 Intake & Output 05/28/18 05/29/18 05/30/18 06:59 06:59 06:59 Intake Total 1775 1425 Balance 1775 1425 Weight 57.6 kg 58.5 kg General appearance: PRESENT: no acute distress Head exam: PRESENT: atraumatic Eye exam: PRESENT: PERRLA Mouth exam: PRESENT: moist Neck exam: ABSENT: carotid bruit, JVD, lymphadenopathy, thyromegaly Respiratory exam: PRESENT: decreased breath sounds Cardiovascular exam: PRESENT: RRR. ABSENT: diastolic murmur, rubs, systolic murmur GI/Abdominal exam: PRESENT: normal bowel sounds, soft. ABSENT: distended, guar ding, mass, organolmegaly, rebound, tenderness Neurological exam: PRESENT: alert, awake, oriented to person, oriented to place, oriented to time, oriented to situation, CN II-XII grossly intact. ABSENT: motor sensory deficit Psychiatric exam: PRESENT: appropriate affect, normal mood. ABSENT: homicidal ideation, suicidal ideation Results Laboratory Results: 05/28/18 11:00 05/28/18 11:00 05/22/18 21:21 Clean Catch Midstream Urine Culture - Final Mixed Urogenital Shanel 05/22/18 05/22/18 05/28/18 21:42 21:42 11:00 Creatine Kinase 960 H 25 L CK-MB (CK-2) 6.47 H Troponin I 0.022 05/28/18 05/28/18 05/28/18 11:00 18:34 18:34 Creatine Kinase 28 L CK-MB (CK-2) 0.85 0.85 Troponin I < 0.012 < 0.012 05/29/18 05/29/18 00:20 00:20 Creatine Kinase 23 L CK-MB (CK-2) 0.82 Troponin I < 0.012 Impressions: Abdomen Ultrasound 05/22/18 21:25 IMPRESSION: The gallbladder could not be visualized, due to body habitus and inability to position patient correctly. The common bile duct is normal. 7 cm cyst in the right kidney. Abdomen/Pelvis CT 05/22/18 22:54 IMPRESSION: Fluid within the proximal two thirds of the gallbladder which could be secondary to an underlying diarrheal process. Possible developing bibasilar pneumonia. Chest CT 05/24/18 07:00 IMPRESSION: Extensive consolidation within the right lower lobe with prominent endobronchial secretions/plugging right lower lobe bronchus. Multifocal ground- glass and acinar type infiltrates noted within the right upper lobe, left upper lobe, and left lower lobe. Small pleural effusions. Chest X-Ray 05/28/18 00:00 IMPRESSION: Right upper and lower lobe pneumonia. Assessment & Plan - Diagnosis (1) Acute respiratory failure with hypoxia Is this a current diagnosis for this admission?: Yes Plan: Secondary to multifocal pneumonia. Currently saturating well on 2L via NC but she does report SOB. BIPAP to alternate with NC, 4 hrs on/4 hrs off. 05/26/2018-acute respiratory failure with hypoxia secondary to multifocal p neumonia. Patient is on Rocephin. Today's pulse ox is 96% on 2 L. 05/27/2018-patient is admitted with acute respiratory failure with hypoxia secondary to multifocal pneumonia patient is on IV Rocephin 1 g daily patient is comfortably in the bed on 2 L oxygen. T-max is 97.9. To continue the present management .cultures are negative so far. 05/28/2018-patient has multifocal pneumonia and on IV Rocephin 1 g daily. Pulse ox is 95% on 2 L. Denies any shortness of breath or chest pains. These cultures are negative so far. T-max is 98.3. 05/29/2018-patient has multifocal pneumonia she is on IV Rocephin 1 g daily pulse ox is and I am going to repeat the chest x-ray today 98% 2 L. (2) Colitis Is this a current diagnosis for this admission?: Yes Plan: Resolved. No recurrence of diarrhea or abdominal pain. Flagyl DCed. Switched antibiotics as mentioned above. 05/26/2018 colitis was resolved. Flagyl was discontinued. Presently on azithromycin and Zosyn. 05/27/2018 colitis was resolved Flagyl was discontinued 2 days ago. 05/28/2018 patient denies any abdominal pain diarrhea. Colitis is resolved. 05/29/2018. No complaints of loose stools or diarrhea. No abdominal pains. Colitis was resolved. (3) HCAP (healthcare-associated pneumonia) Is this a current diagnosis for this admission?: Yes Plan: As per number #1. Low threshold for ICU transfer if patient develops desaturation or worsening SOB. Chest CT ordered and shows multifocal pneumonia with extensive right lung consolidation and possible endobronchial plugging. Patient did have recent hospitalization. Broaden antibiotic coverage and switched to vancomycin and Zosyn. Also on azithromycin. Will consult pulmonology for further recommendations. Continue breathing treatments. Will add mucomyst as well. 05/25/18. Hold vancomycin for now as creatinine has slightly trended up. Continue Zosyn and azithromycin. Discussed with Dr. Weller over phone. 05/26/2018 patient failed outpatient antibiotic therapy for pneumonia. CT scan shows multifocal pneumonia with extensive right lung consolidation with possible endobronchial plugging. And history of hospitalization. #1 Zosyn and azithromycin. pulmonary on board. is on board. 05/27 patient came from assisted living to the hospital. CT scan shows multifocal pneumonia with extensive right lung consolidation with possible endobronchial plugging. Patient is on Zosyn and azithromycin. Blood cultures are negative so far. 05/28/2018-on Zosyn and azithromycin. The blood cultures are negative so far. CT scan shows multifocal pneumonia with right lung consolidation. Planning to continue the present management. 05/29/2018-healthcare acquired pneumonia on Zosyn and azithromycin. Cultures are negative. CT scan shows multifocal pneumonia with right lung consolidation. She is getting CPT treatment. Plan to repeat the chest x-ray today. - Time Time Spent with patient: 15-24 minutes Medications reviewed and adjusted accordingly: Yes
--- NOTE | 2018-05-29 15:58 | RADIOLOGY REPORT (SQ) ---
EXAM DESCRIPTION: CHEST SINGLE VIEW COMPLETED DATE/TIME: 05/29/2018 3:45 pm REASON FOR STUDY: pneumonia COMPARISON: Previous day NUMBER OF VIEWS: One view. TECHNIQUE: Single frontal radiographic image of the chest acquired. LIMITATIONS: None. FINDINGS: LUNGS AND PLEURA: Airspace disease in the right upper and lower lung is unchanged. Small right pleural effusion. Left lung is clear. MEDIASTINUM AND HEART: Stable heart size and mediastinal structures. BONY STRUCTURES: No acute findings. HARDWARE: None. OTHER: No other significant finding. IMPRESSION: Right upper and lower lobe pneumonia. No significant change. TECHNICAL DOCUMENTATION: JOB ID: [id number] Reading location - IP/workstation name: [email or web address]
[2018-05-29] MEDS ORDERED: ACETYLCYSTEINE 10% NEB 400 MG/4 ML VIAL NEB SCH (18:00)
[2018-05-29] MEDS: LEVALBUTEROL HCL NEB 0.63 MG/3 ML AMPUL NEB PRN (20:42)
[2018-05-29] MEDS: AZITHROMYCIN 500 MG in DEXTROSE 5%-WATER 250 ML IV SCH (21:32)
[2018-05-29] MEDS: BIMATOPROST 0.01% OPH SOLN 2.5 ML/BOTTLE OS SCH (21:33)
[2018-05-30] MEDS: CHLORPHENIRAMINE MALEATE 4 MG TABLET PO SCH ×5 (00:25→23:12)
[2018-05-30] MEDS: PIPERACILLIN SODIUM/TAZOBACTAM 3.375 GM in NORMAL SALINE 100 ML IV SCH ×5 (03:04→23:12)
[2018-05-30] MEDS: LEVOTHYROXINE SODIUM 0.088 MG TABLET PO SCH (06:07)
[2018-05-30] MEDS: HEPARIN SOD (PORCINE) 5,000 UNIT/ML 1 ML SYRINGE SUBCUT SCH ×3 (06:07→22:17)
[2018-05-30] MEDS: ACETYLCYSTEINE 10% NEB 400 MG/4 ML VIAL NEB SCH ×2 (08:25→19:36)
[2018-05-30] MEDS: LEVALBUTEROL HCL NEB 0.63 MG/3 ML AMPUL NEB PRN ×2 (08:25→19:36)
[2018-05-30] MEDS: METHYLPREDNISOLONE INJ 40 MG/1 ML SDV IV SCH ×2 (09:53→22:16)
[2018-05-30] MEDS: ASPIRIN 81 MG TABLET, CHEWABLE PO SCH (09:53)
[2018-05-30] MEDS: AMLODIPINE BESYLATE 5 MG TABLET PO SCH ×2 (09:54→20:05)
[2018-05-30] MEDS: FLUTICASONE NASAL SPRAY 50 MCG/SPRY 120 SPRAY/16 GM NASL SCH ×2 (09:54→22:16)
[2018-05-30] MEDS: CALCIUM CARBONATE 250 MG/VITAMIN D3 125 UNIT TABLET PO SCH (09:54)
[2018-05-30] MEDS: SENNOSIDES/DOCUSATE 8.6-50 MG 1 EACH TABLET PO SCH (09:54)
[2018-05-30] MEDS: SERTRALINE HCL 50 MG TABLET PO SCH (09:54)
[2018-05-30] MEDS: ACETAMINOPHEN 325 MG TABLET PO PRN (13:04)
--- NOTE | 2018-05-30 13:49 | PDOC PROGRESS REPORT ---
Subjective Progress Note for:: 05/30/18 Subjective:: -This is a 82 year old female assisted living resident with past medical history of CVA and dementia who initially presented with diarrhea was admitted for colitis and bilateral pneumonia. She was started on Rocephin and Flagyl. Chest CT done yesterday 05/24 shows extensive right sided consolidation, multifocal PNA and possible endobronchial plugging. Results discussed with patient and family including son/DPOA on bedside. She is a full code. No acute event overnight. This morning, she is saturating well on 2L of O2 via NC. She says she still has SOB but this has not worsened from yesterday. She is not tachypneic. She continues to have minimally productive cough. Denies chest pain. 05/26/2018-no acute events in the last 24 hours. Afebrile. Pulse ox is 96% on 2 L. Patient is on Rocephin and Flagyl for colitis/bilateral pneumonia. 05/27/2018-no acute events in the last 24 hours. Physical therapy try to work with the patient but because of the increased weakness and gait instability the recommendation is to put the patient on bedrest. To the family about moving her from assisted living to acute rehab for a short physical therapy and they agreed to proceed with the new plan. 05/28/2018-The nurse notified me around 11:00 that patient has a small brief episode of a cardiac arrhythmia. Patient is asymptomatic at the time. The rhythm strips gross cardiac arrhythmia less than 6 seconds. I am going to order 12-lead EKG. given to see the patient talk to the patient patient denies any chest pains denies any shortness of breath. 05/29/2018-patient has not had 3 episodes of cardiac arrhythmia few seconds of V. tach patient is asymptomatic. Cardiology consult was requested and Dr. Bustillo looked at the strip and recommended a change from DuoNeb to Xopenex nebulizations. 05/30/2018-patient is comfortably in the bed no acute events in the last 24 hours. She is afebrile. Waiting for placement. Reason For Visit: PNEUMONIA Physical Exam Vital Signs: Temp Pulse Resp BP Pulse Ox 98.2 F 59 L 20 174/46 H 97 05/30/18 11:55 05/30/18 11:55 05/30/18 11:55 05/30/18 11:55 05/30/18 11:55 Intake & Output 05/29/18 05/30/18 05/31/18 06:59 06:59 06:59 Intake Total 1425 1402 200 Balance 1425 1402 200 Weight 58.5 kg 60 kg General appearance: PRESENT: mild distress Head exam: PRESENT: atraumatic Eye exam: PRESENT: PERRLA Mouth exam: PRESENT: moist Neck exam: ABSENT: carotid bruit, JVD, lymphadenopathy, thyromegaly Respiratory exam: PRESENT: decreased breath sounds Cardiovascular exam: PRESENT: tachycardia Extremities exam: PRESENT: full ROM. ABSENT: calf tenderness, clubbing, pedal edema Neurological exam: PRESENT: alert, awake, oriented to person, oriented to place, oriented to time, oriented to situation, CN II-XII grossly intact. ABSENT: motor sensory deficit Psychiatric exam: PRESENT: appropriate affect, normal mood. ABSENT: homicidal ideation, suicidal ideation Results Laboratory Results: 05/28/18 11:00 05/28/18 11:00 05/22/18 05/22/18 05/28/18 21:42 21:42 11:00 Creatine Kinase 960 H 25 L CK-MB (CK-2) 6.47 H Troponin I 0.022 05/28/18 05/28/18 05/28/18 11:00 18:34 18:34 Creatine Kinase 28 L CK-MB (CK-2) 0.85 0.85 Troponin I < 0.012 < 0.012 05/29/18 05/29/18 00:20 00:20 Creatine Kinase 23 L CK-MB (CK-2) 0.82 Troponin I < 0.012 Impressions: Abdomen Ultrasound 05/22/18 21:25 IMPRESSION: The gallbladder could not be visualized, due to body habitus and inability to position patient correctly. The common bile duct is normal. 7 cm cyst in the right kidney. Abdomen/Pelvis CT 05/22/18 22:54 IMPRESSION: Fluid within the proximal two thirds of the gallbladder which could be secondary to an underlying diarrheal process. Possible developing bibasilar pneumonia. Chest CT 05/24/18 07:00 IMPRESSION: Extensive consolidation within the right lower lobe with prominent endobronchial secretions/plugging right lower lobe bronchus. Multifocal ground- glass and acinar type infiltrates noted within the right upper lobe, left upper lobe, and left lower lobe. Small pleural effusions. Chest X-Ray 05/29/18 00:00 IMPRESSION: Right upper and lower lobe pneumonia. No significant change. Assessment & Plan - Diagnosis (1) Acute respiratory failure with hypoxia Is this a current diagnosis for this admission?: Yes Plan: Secondary to multifocal pneumonia. Currently saturating well on 2L via NC but she does report SOB. BIPAP to alternate with NC, 4 hrs on/4 hrs off. 05/26/2018-acute respiratory failure with hypoxia secondary to multifocal pneumonia. Patient is on Rocephin. Today's pulse ox is 96% on 2 L. 05/27/2018-patient is admitted with acute respiratory failure with hypoxia laura amin to multifocal pneumonia patient is on IV zosyn patient is comfortably in the bed on 2 L oxygen. T-max is 97.9. To continue the present management .cultures are negative so far. 05/28/2018-patient has multifocal pneumonia and on IV zosyn . Pulse ox is 95% on 2 L. Denies any shortness of breath or chest pains. These cultures are negative so far. T-max is 98.3. 05/29/2018-patient has multifocal pneumonia she is on IV zosyn pulse ox is and I am going to repeat the chest x-ray today 98% 2 L. [id number] chest x-ray still shows right-sided pneumonia. Patient is on Zosyn and azithromycin. Plan is to continue the present management. (2) Colitis Is this a current diagnosis for this admission?: Yes (3) HCAP (healthcare-associated pneumonia) Is this a current diagnosis for this admission?: Yes Plan: As per number #1. Low threshold for ICU transfer if patient develops desaturation or worsening SOB. Chest CT ordered and shows multifocal pneumonia with extensive right lung consolidation and possible endobronchial plugging. Patient did have recent hospitalization. Broaden antibiotic coverage and switched to vancomycin and Zosyn. Also on azithromycin. Will consult pulmonology for further recommendations. Continue breathing treatments. Will add mucomyst as well. 05/25/18. Hold vancomycin for now as creatinine has slightly trended up. Continue Zosyn and azithromycin. Discussed with Dr. Weller over phone. 05/26/2018 patient failed outpatient antibiotic therapy for pneumonia. CT scan shows multifocal pneumonia with extensive right lung consolidation with possible endobronchial plugging. And history of hospitalization. #1 Zosyn and azithromycin. pulmonary on board. is on board. 05/27 patient came from assisted living to the hospital. CT scan shows multifocal pneumonia with extensive right lung consolidation with possible endobronchial plugging. Patient is on Zosyn and azithromycin. Blood cultures are negative so far. 05/28/2018-on Zosyn and azithromycin. The blood cultures are negative so far. CT scan shows multifocal pneumonia with right lung consolidation. Planning to continue the present management. 05/29/2018-healthcare acquired pneumonia on Zosyn and azithromycin. Cultures are negative. CT scan shows multifocal pneumonia with right lung consolidation. She is getting CPT treatment. Plan to repeat the chest x-ray today. 05/30/2018 patient is afebrile vitals are stable plan is to continue Zosyn and azithromycin. - Time Time Spent with patient: 15-24 minutes Medications reviewed and adjusted accordingly: Yes
[2018-05-30] MEDS: BIMATOPROST 0.01% OPH SOLN 2.5 ML/BOTTLE OS SCH (22:16)
[2018-05-31] MEDS: LEVOTHYROXINE SODIUM 0.088 MG TABLET PO SCH (06:04)
[2018-05-31] MEDS: PIPERACILLIN SODIUM/TAZOBACTAM 3.375 GM in NORMAL SALINE 100 ML IV SCH ×2 (06:04→12:15)
[2018-05-31] MEDS: CHLORPHENIRAMINE MALEATE 4 MG TABLET PO SCH ×3 (06:04→17:23)
[2018-05-31] MEDS: HEPARIN SOD (PORCINE) 5,000 UNIT/ML 1 ML SYRINGE SUBCUT SCH ×3 (06:05→21:55)
[2018-05-31 06:48] LABS: HEMATOCRIT 29.8 % (36.0-47.0); MEAN CORPUSCULAR HEMOGLOBIN 29.2 pg (27.0-33.4); MEAN CORPUSCULAR HGB CONC 33.8 g/dL (32.0-36.0); MEAN CORPUSCULAR VOLUME 87 fl (80-97); PLATELET COUNT 253 10^3/uL (150-450); RED BLOOD COUNT 3.44 10^6/uL (3.72-5.28); RED CELL DISTRIBUTION WIDTH 14.9 % (11.5-14.0); WHITE BLOOD COUNT 14.4 10^3/uL (4.0-10.5)
[2018-05-31 07:09] LABS: ALANINE AMINOTRANSFERASE 23 U/L (9-52); ALBUMIN 2.6 g/dL (3.5-5.0); ALKALINE PHOSPHATASE 54 U/L (38-126); ANION GAP 5 (5-19); ASPARTATE AMINO TRANSFERASE 15 U/L (14-36); BILIRUBIN,DIRECT 0.2 mg/dL (0.0-0.4); BILIRUBIN,TOTAL 0.2 mg/dL (0.2-1.3); BLOOD UREA NITROGEN 20 mg/dL (7-20); CALCIUM 8.6 mg/dL (8.4-10.2); CARBON DIOXIDE 24 mmol/L (22-30); CHLORIDE 113 mmol/L (98-107); GLUCOSE 114 mg/dL (75-110); POTASSIUM 3.7 mmol/L (3.6-5.0); SODIUM 141.5 mmol/L (137-145)
[2018-05-31 07:20] LABS: ABSOLUTE LYMPHOCYTES# (MANUAL) 1.6 10^3/uL (0.5-4.7); ABSOLUTE MONOCYTES # (MANUAL) 0.3 10^3/uL (0.1-1.4); ABSOLUTE NEUTROPHILS# (MANUAL) 12.4 10^3/uL (1.7-8.2); BASOPHILS % (MANUAL) 0 % (0-2); EOSINOPHILS % (MANUAL) 1 % (0-6); LYMPHOCYTES % (MANUAL) 11 % (13-45); MONOCYTES % (MANUAL) 2 % (3-13); SEGMENTED NEUTROPHILS % (MAN) 86 % (42-78); TOTAL CELLS COUNTED 100
[2018-05-31 07:21] LABS: RBC MORPHOLOGY COMMENT NORMO-CYTIC/CHROMIC
[2018-05-31 07:22] LABS: PLATELET COMMENT ADEQUATE
[2018-05-31] MEDS: LEVALBUTEROL HCL NEB 0.63 MG/3 ML AMPUL NEB PRN ×2 (08:23→19:46)
[2018-05-31] MEDS: ACETYLCYSTEINE 10% NEB 400 MG/4 ML VIAL NEB SCH ×2 (08:24→19:46)
[2018-05-31] MEDS: SERTRALINE HCL 50 MG TABLET PO SCH (09:43)
[2018-05-31] MEDS: ASPIRIN 81 MG TABLET, CHEWABLE PO SCH (09:43)
[2018-05-31] MEDS: AMLODIPINE BESYLATE 5 MG TABLET PO SCH ×2 (09:44→17:22)
[2018-05-31] MEDS: METHYLPREDNISOLONE INJ 40 MG/1 ML SDV IV SCH ×2 (09:44→21:57)
[2018-05-31] MEDS: FLUTICASONE NASAL SPRAY 50 MCG/SPRY 120 SPRAY/16 GM NASL SCH ×2 (09:44→21:54)
[2018-05-31] MEDS: SENNOSIDES/DOCUSATE 8.6-50 MG 1 EACH TABLET PO SCH (09:44)
[2018-05-31] MEDS: LISINOPRIL 5 MG TABLET PO SCH (09:45)
[2018-05-31] MEDS: CALCIUM CARBONATE 250 MG/VITAMIN D3 125 UNIT TABLET PO SCH (09:45)
--- NOTE | 2018-05-31 13:55 | PDOC PROGRESS REPORT ---
Subjective Progress Note for:: 05/31/18 Subjective:: -This is a 82 year old female assisted living resident with past medical history of CVA and dementia who initially presented with diarrhea was admitted for colitis and bilateral pneumonia. She was started on Rocephin and Flagyl. Chest CT done yesterday 05/24 shows extensive right sided consolidation, multifocal PNA and possible endobronchial plugging. Results discussed with patient and family including son/DPOA on bedside. She is a full code. No acute event overnight. This morning, she is saturating well on 2L of O2 via NC. She says she still has SOB but this has not worsened from yesterday. She is not tachypneic. She continues to have minimally productive cough. Denies chest pain. 05/26/2018-no acute events in the last 24 hours. Afebrile. Pulse ox is 96% on 2 L. Patient is on Rocephin and Flagyl for colitis/bilateral pneumonia. 05/27/2018-no acute events in the last 24 hours. Physical therapy try to work with the patient but because of the increased weakness and gait instability the recommendation is to put the patient on bedrest. To the family about moving her from assisted living to acute rehab for a short physical therapy and they agreed to proceed with the new plan. 05/28/2018-The nurse notified me around 11:00 that patient has a small brief episode of a cardiac arrhythmia. Patient is asymptomatic at the time. The rhythm strips gross cardiac arrhythmia less than 6 seconds. I am going to order 12-lead EKG. given to see the patient talk to the patient patient denies any chest pains denies any shortness of breath. 05/29/2018-patient has not had 3 episodes of cardiac arrhythmia few seconds of V. tach patient is asymptomatic. Cardiology consult was requested and Dr. Bustillo looked at the strip and recommended a change from DuoNeb to Xopenex nebulizations. 05/30/2018-patient is comfortably in the bed no acute events in the last 24 hours. She is afebrile. Waiting for placement. 05/31/2018-no acute events in the last 24 hours. Patient waiting for placement. According to the patient's sister there is no bed is available in [facility] now the [facility]. Reason For Visit: PNEUMONIA Physical Exam Vital Signs: Temp Pulse Resp BP Pulse Ox 98.3 F 57 L 18 157/49 H 95 05/31/18 12:00 05/31/18 12:00 05/31/18 12:00 05/31/18 12:00 05/31/18 12:00 Intake & Output 05/30/18 05/31/18 06/01/18 06:59 06:59 06:59 Intake Total 1402 1140 100 Balance 1402 1140 100 Weight 60 kg 58.9 kg General appearance: PRESENT: no acute distress Eye exam: PRESENT: PERRLA Mouth exam: PRESENT: moist Neck exam: ABSENT: carotid bruit, JVD, lymphadenopathy, thyromegaly Respiratory exam: PRESENT: decreased breath sounds Cardiovascular exam: PRESENT: RRR. ABSENT: diastolic murmur, rubs, systolic murmur GI/Abdominal exam: PRESENT: normal bowel sounds, soft. ABSENT: distended, guarding, mass, organolmegaly, rebound, tenderness Neurological exam: PRESENT: alert, awake, oriented to person, oriented to place, oriented to time, oriented to situation, CN II-XII grossly intact. ABSENT: motor sensory deficit Psychiatric exam: PRESENT: appropriate affect, normal mood. ABSENT: homicidal ideation, suicidal ideation Results Laboratory Results: 05/31/18 05:57 05/31/18 05:57 05/31/18 05/31/18 05:57 05:57 WBC 14.4 H RBC 3.44 L Hgb 10.0 L Hct 29.8 L MCV 87 MCH 29.2 MCHC 33.8 RDW 14.9 H Plt Count 253 Seg Neutrophils % Not Reportable Lymphocytes % Not Reportable Monocytes % Not Reportable Eosinophils % Not Reportable Basophils % Not Reportable Absolute Neutrophils Not Reportable Absolute Lymphocytes Not Reportable Absolute Monocytes Not Reportable Absolute Eosinophils Not Reportable Absolute Basophils Not Reportable Sodium 141.5 Potassium 3.7 Chloride 113 H Carbon Dioxide 24 Anion Gap 5 BUN 20 Creatinine 1.15 Est GFR ( Amer) 55 L Est GFR (Non-Af Amer) 45 L Glucose 114 H Calcium 8.6 Magnesium 2.0 Total Bilirubin 0.2 AST 15 ALT 23 Alkaline Phosphatase 54 Total Protein 5.0 L Albumin 2.6 L 05/22/18 05/22/18 05/28/18 21:42 21:42 11:00 Creatine Kinase 960 H 25 L CK-MB (CK-2) 6.47 H Troponin I 0.022 05/28/18 05/28/18 05/28/18 11:00 18:34 18:34 Creatine Kinase 28 L CK-MB (CK-2) 0.85 0.85 Troponin I < 0.012 < 0.012 05/29/18 05/29/18 00:20 00:20 Creatine Kinase 23 L CK-MB (CK-2) 0.82 Troponin I < 0.012 Impressions: Abdomen Ultrasound 05/22/18 21:25 IMPRESSION: The gallbladder could not be visualized, due to body habitus and inability to position patient correctly. The common bile duct is normal. 7 cm cyst in the right kidney. Abdomen/Pelvis CT 05/22/18 22:54 IMPRESSION: Fluid within the proximal two thirds of the gallbladder which could be secondary to an underlying diarrheal process. Possible developing bibasilar pneumonia. Chest CT 05/24/18 07:00 IMPRESSION: Extensive consolidation within the right lower lobe with prominent endobronchial secretions/plugging right lower lobe bronchus. Multifocal ground- glass and acinar type infiltrates noted within the right upper lobe, left upper lobe, and left lower lobe. Small pleural effusions. Chest X-Ray 05/29/18 00:00 IMPRESSION: Right upper and lower lobe pneumonia. No significant change. Assessment & Plan - Diagnosis (1) Acute respiratory failure with hypoxia Is this a current diagnosis for this admission?: Yes Plan: Secondary to multifocal pneumonia. Currently saturating well on 2L via NC but she does report SOB. BIPAP to alternate with NC, 4 hrs on/4 hrs off. 05/26/2018-acute respiratory failure with hypoxia secondary to multifocal pneumonia. Patient is on Rocephin. Today's pulse ox is 96% on 2 L. 05/27/2018-patient is admitted with acute respiratory failure with hypoxia secondary to multifocal pneumonia patient is on IV zosyn patient is comfortably in the bed on 2 L oxygen. T-max is 97.9. To continue the present m anagement .cultures are negative so far. 05/28/2018-patient has multifocal pneumonia and on IV zosyn . Pulse ox is 95% on 2 L. Denies any shortness of breath or chest pains. These cultures are neg ative so far. T-max is 98.3. 05/29/2018-patient has multifocal pneumonia she is on IV zosyn pulse ox is and I am going to repeat the chest x-ray today 98% 2 L. [id number] chest x-ray still shows right-sided pneumonia. Patient is on Zosyn and azithromycin. Plan is to continue the present management. 05/31/2018 repeat chest x-ray on 05/30/2018 shows right-sided pneumonia patient is on Zosyn and azithromycin she completed 7 days of course of antibiotics I am going to stop the antibiotics today she is afebrile for the last 3-4 days. Patient's pulse ox is 94% on 2 L. (2) Colitis Is this a current diagnosis for this admission?: Yes Plan: Resolved. No recurrence of diarrhea or abdominal pain. Flagyl DCed. Switched antibiotics as mentioned above. 05/26/2018 colitis was resolved. Flagyl was discontinued. Presently on azithromycin and Zosyn. 05/27/2018 colitis was resolved Flagyl was discontinued 2 days ago. 05/28/2018 patient denies any abdominal pain diarrhea. Colitis is resolved. 05/29/2018. No complaints of loose stools or diarrhea. No abdominal pains. Colitis was resolved. 05/31/2018 patient has no more episodes of loose stools. Initially she was on Flagyl for colitis. We discontinued Flagyl few days ago she does not have any problem with bowel movements anymore. (3) HCAP (healthcare-associated pneumonia) Is this a current diagnosis for this admission?: Yes Plan: As per number #1. Low threshold for ICU transfer if patient develops desaturation or worsening SOB. Chest CT ordered and shows multifocal pneumonia with extensive right lung consolidation and possible endobronchial plugging. Patient did have recent hospitalization. Broaden antibiotic coverage and switched to vancomycin and Zosyn. Also on azithromycin. Will consult pulmonology for further recommendations. Continue breathing treatments. Will add mucomyst as well. 05/25/18. Hold vancomycin for now as creatinine has slightly trended up. Con tinue Zosyn and azithromycin. Discussed with Dr. Weller over phone. 05/26/2018 patient failed outpatient antibiotic therapy for pneumonia. CT scan shows multifocal pneumonia with extensive right lung consolidation with possible endobronchial plugging. And history of hospitalization. #1 Zosyn and azithromycin. pulmonary on board. is on board. 05/27 patient came from assisted living to the hospital. CT scan shows multifocal pneumonia with extensive right lung consolidation with possible endobronchial plugging. Patient is on Zosyn and azithromycin. Blood cultures are negative so far. 05/28/2018-on Zosyn and azithromycin. The blood cultures are negative so far. CT scan shows multifocal pneumonia with right lung consolidation. Planning to continue the present management. 05/29/2018-healthcare acquired pneumonia on Zosyn and azithromycin. Cultures are negative. CT scan shows multifocal pneumonia with right lung consolidation. She is getting CPT treatment. Plan to repeat the chest x-ray today. 05/30/2018 patient is afebrile vitals are stable plan is to continue Zosyn and azithromycin. 05/31/2018-patient has health care associated pneumonia healthcare associated pneumonia rather she was treated with Zosyn and azithromycin she completed 8 days of antibiotics and I am going to stop the antibiotics today. - Time Time Spent with patient: 15-24 minutes Medications reviewed and adjusted accordingly: Yes Anticipated discharge: SNF
[2018-05-31] MEDS: BIMATOPROST 0.01% OPH SOLN 2.5 ML/BOTTLE OS SCH (21:56)
[2018-06-01] MEDS: CHLORPHENIRAMINE MALEATE 4 MG TABLET PO SCH ×4 (01:27→17:34)
[2018-06-01] MEDS: LEVOTHYROXINE SODIUM 0.088 MG TABLET PO SCH (06:43)
[2018-06-01] MEDS: HEPARIN SOD (PORCINE) 5,000 UNIT/ML 1 ML SYRINGE SUBCUT SCH ×3 (06:44→22:32)
[2018-06-01] MEDS: LEVALBUTEROL HCL NEB 0.63 MG/3 ML AMPUL NEB PRN ×2 (08:22→20:32)
[2018-06-01] MEDS: ACETYLCYSTEINE 10% NEB 400 MG/4 ML VIAL NEB SCH ×2 (08:22→20:32)
[2018-06-01] MEDS: METHYLPREDNISOLONE INJ 40 MG/1 ML SDV IV SCH (09:11)
[2018-06-01] MEDS: CALCIUM CARBONATE 250 MG/VITAMIN D3 125 UNIT TABLET PO SCH (09:11)
[2018-06-01] MEDS: ASPIRIN 81 MG TABLET, CHEWABLE PO SCH (09:12)
[2018-06-01] MEDS: LISINOPRIL 5 MG TABLET PO SCH (09:12)
[2018-06-01] MEDS: SENNOSIDES/DOCUSATE 8.6-50 MG 1 EACH TABLET PO SCH (09:12)
[2018-06-01] MEDS: SERTRALINE HCL 50 MG TABLET PO SCH (09:13)
[2018-06-01] MEDS: AMLODIPINE BESYLATE 5 MG TABLET PO SCH ×2 (09:13→17:33)
[2018-06-01] MEDS: FLUTICASONE NASAL SPRAY 50 MCG/SPRY 120 SPRAY/16 GM NASL SCH ×2 (09:20→22:29)
[2018-06-01] MEDS: HYDRALAZINE HCL INJ/PF 20 MG/1 ML SDV IV PRN (13:43)
--- NOTE | 2018-06-01 14:08 | PDOC PROGRESS REPORT ---
Subjective Progress Note for:: 06/01/18 Subjective:: -This is a 82 year old female assisted living resident with past medical history of CVA and dementia who initially presented with diarrhea was admitted for colitis and bilateral pneumonia. She was started on Rocephin and Flagyl. Chest CT done yesterday 05/24 shows extensive right sided consolidation, multifocal PNA and possible endobronchial plugging. Results discussed with patient and family including son/DPOA on bedside. She is a full code. No acute event overnight. This morning, she is saturating well on 2L of O2 via NC. She says she still has SOB but this has not worsened from yesterday. She is not tachypneic. She continues to have minimally productive cough. Denies chest pain. 05/26/2018-no acute events in the last 24 hours. Afebrile. Pulse ox is 96% on 2 L. Patient is on Rocephin and Flagyl for colitis/bilateral pneumonia. 05/27/2018-no acute events in the last 24 hours. Physical therapy try to work with the patient but because of the increased weakness and gait instability the recommendation is to put the patient on bedrest. To the family about moving her from assisted living to acute rehab for a short physical therapy and they agreed to proceed with the new plan. 05/28/2018-The nurse notified me around 11:00 that patient has a small brief episode of a cardiac arrhythmia. Patient is asymptomatic at the time. The rhythm strips gross cardiac arrhythmia less than 6 seconds. I am going to order 12-lead EKG. given to see the patient talk to the patient patient denies any chest pains denies any shortness of breath. 05/29/2018-patient has not had 3 episodes of cardiac arrhythmia few seconds of V. tach patient is asymptomatic. Cardiology consult was requested and Dr. Bustillo looked at the strip and recommended a change from DuoNeb to Xopenex nebulizations. 05/30/2018-patient is comfortably in the bed no acute events in the last 24 hours. She is afebrile. Waiting for placement. 05/31/2018-no acute events in the last 24 hours. Patient waiting for placement. According to the patient's sister there is no bed is available in [facility] now the [facility]. 06/01/2018-no acute events in the last 24 hours. Patient waiting for placement. Patient is afebrile. Blood pressures are running high this morning. I am going to adjust the blood pressure medications. Reason For Visit: PNEUMONIA Physical Exam Vital Signs: Temp Pulse Resp BP Pulse Ox 98.1 F 55 L 17 184/43 H 94 06/01/18 11:24 06/01/18 11:24 06/01/18 11:24 06/01/18 11:24 06/01/18 11:24 Intake & Output 05/31/18 06/01/18 06/02/18 06:59 06:59 06:59 Intake Total 1140 1022 Output Total 600 Balance 1140 422 Weight 58.9 kg 60.2 kg General appearance: PRESENT: no acute distress Head exam: PRESENT: atraumatic Eye exam: PRESENT: PERRLA Mouth exam: PRESENT: moist Neck exam: ABSENT: carotid bruit, JVD, lymphadenopathy, thyromegaly Respiratory exam: PRESENT: decreased breath sounds Cardiovascular exam: PRESENT: RRR. ABSENT: diastolic murmur, rubs, systolic murmur GI/Abdominal exam: PRESENT: normal bowel sounds, soft. ABSENT: distended, guarding, mass, organolmegaly, rebound, tenderness Extremities exam: PRESENT: full ROM. ABSENT: calf tenderness, clubbing, pedal edema Neurological exam: PRESENT: alert, awake, oriented to person, oriented to place, oriented to time, oriented to situation, CN II-XII grossly intact. ABSENT: motor sensory deficit Psychiatric exam: PRESENT: appropriate affect, normal mood. ABSENT: homicidal ideation, suicidal ideation Results Laboratory Results: 05/31/18 05:57 05/31/18 05:57 05/22/18 05/22/18 05/28/18 21:42 21:42 11:00 Creatine Kinase 960 H 25 L CK-MB (CK-2) 6.47 H Troponin I 0.022 05/28/18 05/28/18 05/28/18 11:00 18:34 18:34 Creatine Kinase 28 L CK-MB (CK-2) 0.85 0.85 Troponin I < 0.012 < 0.012 05/29/18 05/29/18 00:20 00:20 Creatine Kinase 23 L CK-MB (CK-2) 0.82 Troponin I < 0.012 Impressions: Abdomen Ultrasound 05/22/18 21:25 IMPRESSION: The gallbladder could not be visualized, due to body habitus and inability to position patient correctly. The common bile duct is normal. 7 cm cyst in the right kidney. Abdomen/Pelvis CT 05/22/18 22:54 IMPRESSION: Fluid within the proximal two thirds of the gallbladder which could be secondary to an underlying diarrheal process. Possible developing bibasilar pneumonia. Chest CT 05/24/18 07:00 IMPRESSION: Extensive consolidation within the right lower lobe with prominent endobronchial secretions/plugging right lower lobe bronchus. Multifocal ground- glass and acinar type infiltrates noted within the right upper lobe, left upper lobe, and left lower lobe. Small pleural effusions. Chest X-Ray 05/29/18 00:00 IMPRESSION: Right upper and lower lobe pneumonia. No significant change. Assessment & Plan - Diagnosis (1) Acute respiratory failure with hypoxia Is this a current diagnosis for this admission?: Yes Plan: Secondary to multifocal pneumonia. Currently saturating well on 2L via NC but she does report SOB. BIPAP to alternate with NC, 4 hrs on/4 hrs off. 05/26/2018-acute respiratory failure with hypoxia secondary to multifocal pneumonia. Patient is on Rocephin. Today's pulse ox is 96% on 2 L. 05/27/2018-patient is admitted with acute respiratory failure with hypoxia secondary to multifocal pneumonia patient is on IV zosyn patient is comfo rtably in the bed on 2 L oxygen. T-max is 97.9. To continue the present management .cultures are negative so far. 05/28/2018-patient has multifocal pneumonia and on IV zosyn . Pulse ox is 95% on 2 L. Denies any shortness of breath or chest pains. These cultures are negative so far. T-max is 98.3. 05/29/2018-patient has multifocal pneumonia she is on IV zosyn pulse ox is and I am going to repeat the chest x-ray today 98% 2 L. 05/[id number] chest x-ray still shows right-sided pneumonia. Patient is on Zosyn and azithromycin. Plan is to continue the present management. 05/31/2018 repeat chest x-ray on 05/30/2018 shows right-sided pneumonia patient is on Zosyn and azithromycin she completed 7 days of course of antibiotics I am going to stop the antibiotics today she is afebrile for the last 3-4 days. Patient's pulse ox is 94% on 2 L. 06/01/2018-patient was admitted with right-sided pneumonia. She was started on Zosyn and Zithromax. Work came back negative. Antibiotics were stopped. She is afebrile. Her T-max is 97.7. Since pulse ox is 97% on 1 L. (2) Colitis Is this a current diagnosis for this admission?: Yes Plan: Resolved. No recurrence of diarrhea or abdominal pain. Flagyl DCed. Switched antibiotics as mentioned above. 05/26/2018 colitis was resolved. Flagyl was discontinued. Presently on azithromycin and Zosyn. 05/27/2018 colitis was resolved Flagyl was discontinued 2 days ago. 05/28/2018 patient denies any abdominal pain diarrhea. Colitis is resolved. 05/29/2018. No complaints of loose stools or diarrhea. No abdominal pains. Colitis was resolved. 05/31/2018 patient has no more episodes of loose stools. Initially she was on Flagyl for colitis. We discontinued Flagyl few days ago she does not have any problem with bowel movements anymore. 06/01/2018 colitis was resolved. (3) HCAP (healthcare-associated pneumonia) Is this a current diagnosis for this admission?: Yes Plan: As per number #1. Low threshold for ICU transfer if patient develops desaturation or worsening SOB. Chest CT ordered and shows multifocal pneumonia with extensive right lung consolidation and possible endobronchial plugging. Patient did have recent hospitalization. Broaden antibiotic coverage and switched to vancomycin and Zosyn. Also on azithromycin. Will consult pulmonology for further recommendations. Continue breathing treatments. Will add mucomyst as well. 05/25/18. Hold vancomycin for now as creatinine has slightly trended up. Continue Zosyn and azithromycin. Discussed with Dr. Weller over phone. 05/26/2018 patient failed outpatient antibiotic therapy for pneumonia. CT scan shows multifocal pneumonia with extensive right lung consolidation with possible endobronchial plugging. And history of hospitalization. #1 Zosyn and azithromycin. pulmonary on board. is on board. 05/27 patient came from assisted living to the hospital. CT scan shows multifocal pneumonia with extensive right lung consolidation with possible endobronchial plugging. Patient is on Zosyn and azithromycin. Blood cultures are negative so far. 05/28/2018-on Zosyn and azithromycin. The blood cultures are negative so far. CT scan shows multifocal pneumonia with right lung consolidation. Planning to continue the present management. 05/29/2018-healthcare acquired pneumonia on Zosyn and azithromycin. Cultures are negative. CT scan shows multifocal pneumonia with right lung consolidation. She is getting CPT treatment. Plan to repeat the chest x-ray today. 05/30/2018 patient is afebrile vitals are stable plan is to continue Zosyn and azithromycin. 05/31/2018-patient has health care associated pneumonia healthcare associated pneumonia rather she was treated with Zosyn and azithromycin she completed 8 days of antibiotics and I am going to stop the antibiotics today. 06/01/2018 patient has healthcare associated pneumonia she was treated with Zosyn and azithromycin she completed the course of antibiotic therapy she is off the antibiotics since yesterday. (4) Dementia Is this a current diagnosis for this admission?: Yes Plan: 06/01/2018-patient has history of dementia. She has difficulty in memory and communication. She is also problems with ambulation. Physical therapy consult was done and the recommendation is patient is to be bedbound and can come out of the bed with assistance only. In my opinion patient need to go to acute rehab and she may have to stay there less than 30 days to recover. - Time Time Spent with patient: 15-24 minutes Medications reviewed and adjusted accordingly: Yes Anticipated discharge: Acute Rehab
[2018-06-01] MEDS: PREDNISONE 10 MG TABLET PO SCH (17:33)
[2018-06-01] MEDS: BIMATOPROST 0.01% OPH SOLN 2.5 ML/BOTTLE OS SCH (22:33)
[2018-06-02] MEDS: CHLORPHENIRAMINE MALEATE 4 MG TABLET PO SCH ×4 (03:53→17:30)
[2018-06-02] MEDS: LEVALBUTEROL HCL NEB 0.63 MG/3 ML AMPUL NEB PRN ×2 (08:21→20:07)
[2018-06-02] MEDS: ACETYLCYSTEINE 10% NEB 400 MG/4 ML VIAL NEB SCH ×2 (08:21→20:07)
[2018-06-02] MEDS: HEPARIN SOD (PORCINE) 5,000 UNIT/ML 1 ML SYRINGE SUBCUT SCH ×3 (08:35→22:38)
[2018-06-02] MEDS: HYDRALAZINE HCL INJ/PF 20 MG/1 ML SDV IV PRN (08:39)
[2018-06-02] MEDS: ASPIRIN 81 MG TABLET, CHEWABLE PO SCH (09:28)
[2018-06-02] MEDS: FLUTICASONE NASAL SPRAY 50 MCG/SPRY 120 SPRAY/16 GM NASL SCH ×2 (09:28→22:39)
[2018-06-02] MEDS: PREDNISONE 10 MG TABLET PO SCH ×2 (09:28→17:30)
[2018-06-02] MEDS: SERTRALINE HCL 50 MG TABLET PO SCH (09:29)
[2018-06-02] MEDS: CALCIUM CARBONATE 250 MG/VITAMIN D3 125 UNIT TABLET PO SCH (09:29)
[2018-06-02] MEDS: AMLODIPINE BESYLATE 5 MG TABLET PO SCH ×2 (09:29→17:30)
[2018-06-02] MEDS: SENNOSIDES/DOCUSATE 8.6-50 MG 1 EACH TABLET PO SCH (09:29)
[2018-06-02] MEDS: LISINOPRIL 10 MG TABLET PO SCH (09:29)
[2018-06-02] MEDS: ACETAMINOPHEN 325 MG TABLET PO PRN ×2 (09:35→17:30)
[2018-06-02] MEDS: LEVOTHYROXINE SODIUM 0.088 MG TABLET PO SCH (13:54)
--- NOTE | 2018-06-02 16:03 | PDOC PROGRESS REPORT ---
Subjective Progress Note for:: 06/02/18 Subjective:: This is a 82 year old female assisted living resident with past medical history of CVA and dementia who initially presented with diarrhea was admitted for colitis and bilateral pneumonia. She was started on Rocephin and Flagyl. Chest CT done on 05/24 shows extensive right sided consolidation, multifocal PNA and possible endobronchial plugging. Results discussed with patient and family including son/DPOA on bedside. She is a full code. She was initially started on broad spectrum IV antibiotics. She completed 8 days of antibiotics and these were discontinued by preceding hospitalist. Patient has not been seen by pulmonology yet. Discussed with Dr. Weller today who recommended repeating the chest CT due to significant findings on her previous CT scan. No acute event overnight. Upon encounter, she is comfortable and is saturating well on 2L via NC. Reason For Visit: PNEUMONIA Physical Exam Vital Signs: Temp Pulse Resp BP Pulse Ox 97.7 F 58 L 20 150/44 H 98 06/02/18 11:09 06/02/18 11:09 06/02/18 11:09 06/02/18 11:09 06/02/18 11:09 Intake & Output 06/01/18 06/02/18 06/03/18 06:59 06:59 06:59 Intake Total 1022 549 523 Output Total 600 Balance 422 549 523 Weight 132 lb 11.492 oz 127 lb 13.89 oz General appearance: PRESENT: no acute distress, well-developed, well-nourished Head exam: PRESENT: atraumatic, normocephalic Eye exam: PRESENT: conjunctiva pink, EOMI, PERRLA. ABSENT: scleral icterus Ear exam: PRESENT: normal external ear exam Mouth exam: PRESENT: moist, tongue midline Neck exam: ABSENT: carotid bruit, JVD, lymphadenopathy, thyromegaly Respiratory exam: PRESENT: rhonchi. ABSENT: rales, wheezes Cardiovascular exam: PRESENT: RRR. ABSENT: diastolic murmur, rubs, systolic murmur Pulses: PRESENT: normal dorsalis pedis pul GI/Abdominal exam: PRESENT: normal bowel sounds, soft. ABSENT: distended, guarding, mass, organolmegaly, rebound, tenderness Rectal exam: PRESENT: deferred Neurological exam: PRESENT: awake, oriented to person, oriented to place Results Laboratory Results: 05/31/18 05:57 05/31/18 05:57 05/22/18 05/22/18 05/28/18 21:42 21:42 11:00 Creatine Kinase 960 H 25 L CK-MB (CK-2) 6.47 H Troponin I 0.022 05/28/18 05/28/18 05/28/18 11:00 18:34 18:34 Creatine Kinase 28 L CK-MB (CK-2) 0.85 0.85 Troponin I < 0.012 < 0.012 05/29/18 05/29/18 00:20 00:20 Creatine Kinase 23 L CK-MB (CK-2) 0.82 Troponin I < 0.012 Impressions: Abdomen Ultrasound 05/22/18 21:25 IMPRESSION: The gallbladder could not be visualized, due to body habitus and inability to position patient correctly. The common bile duct is normal. 7 cm cyst in the right kidney. Abdomen/Pelvis CT 05/22/18 22:54 IMPRESSION: Fluid within the proximal two thirds of the gallbladder which could be secondary to an underlying diarrheal process. Possible developing bibasilar pneumonia. Chest CT 05/24/18 07:00 IMPRESSION: Extensive consolidation within the right lower lobe with prominent endobronchial secretions/plugging right lower lobe bronchus. Multifocal ground- glass and acinar type infiltrates noted within the right upper lobe, left upper lobe, and left lower lobe. Small pleural effusions. Chest X-Ray 05/29/18 00:00 IMPRESSION: Right upper and lower lobe pneumonia. No significant change. Assessment & Plan - Diagnosis (1) Acute respiratory failure with hypoxia Is this a current diagnosis for this admission?: Yes Plan: Secondary to multifocal pneumonia. Currently saturating well on 2L via NC. (2) HCAP (healthcare-associated pneumonia) Is this a current diagnosis for this admission?: Yes Plan: As per number #1. Low threshold for ICU transfer if patient develops desaturation or worsening SOB. Chest CT ordered and shows multifocal pneumonia with extensive right lung consolidation and possible endobronchial plugging. Patient did have recent hospitalization. Broaden antibiotic coverage and switched to vancomycin and Zosyn. Also on azithromycin. Will consult pulmonology for further recommendations. Continue breathing treatments. Will add mucomyst as well. Chest CT done on 05/24 shows extensive right sided consolidation, multifocal PNA and possible endobronchial plugging. Results discussed with patient and family including son/DPOA on bedside. She is a full code. She was initially started on broad spectrum IV antibiotics. She completed 8 days of antibiotics and these were discontinued by preceding hospitalist on 05/31/18. Patient has not been seen by pulmonology yet. Discussed with Dr. Weller today who recommended repeating the chest CT today due to significant findings on her previous CT scan. If there is still persistent endobronchial plugging, possible bronch per pulm. (3) Colitis Is this a current diagnosis for this admission?: Yes Plan: Resolved. No recurrence of diarrhea or abdominal pain. Celi Deshpande. - Time Time Spent with patient: 25-34 minutes
--- NOTE | 2018-06-02 18:01 | RADIOLOGY REPORT (SQ) ---
EXAM DESCRIPTION: CT CHEST WITHOUT COMPLETED DATE/TIME: 06/02/2018 5:12 pm REASON FOR STUDY: per pulm recs,reassess multifocal PNA endobronplug COMPARISON: 05/24/2018. TECHNIQUE: CT scan performed of the chest without intravenous contrast. Images reviewed with lung, soft tissue and bone windows. Reconstructed coronal and sagittal MPR images reviewed. All images st ored on PACS. All CT scanners at this facility use dose modulation, iterative reconstruction, and/or weight based d osing when appropriate to reduce radiation dose to as low as reasonably achievable (ALARA). [facility]: Dose Right [facility]: CareDose [facility]: Dose Right [facility]: Teradose 4D [facility]: [employer] RADIATION DOSE: CT Rad equipment meets quality standard of care and radiation dose reduction techniq ues were employed. CTDIvol: 8.9 mGy. DLP: 286 mGy-cm. mGy. LIMITATIONS: No technical limitations. FINDINGS: LUNGS AND PLEURA: Bilateral pleural effusions, right greater than left, have increased in size since the prior study. Consolidation/compressive atelectasis in the right lower lobe. Patchy g round-glass airspace disease in the upper lobes has increased since prior study. HILAR AND MEDIASTINAL STRUCTURES: No identified masses or abnormal nodes. No obvious aneurysm. HEART AND VASCULAR STRUCTURES: No aneurysm. No pericardial effusion. UPPER ABDOMEN: No significant findings. Limited exam. THYROID AND OTHER SOFT TISSUES: No masses. No adenopathy. BONES: No significant finding. HARDWARE: None in the chest. OTHER: No other significant findings. IMPRESSION: BILATERAL PLEURAL EFFUSIONS, RIGHT GREATER THAN LEFT, HAVE INCREASED IN SIZE. PATCHY GR OUND-GLASS AIRSPACE DISEASE IN THE UPPER LOBES HAS INCREASED SINCE THE PRIOR STUDY. CONSOLIDATION/CO MPRESSIVE ATELECTASIS IN THE RIGHT LOWER LOBE. TECHNICAL DOCUMENTATION: JOB ID: [id number] Quality ID # [id number]: Final reports with documentation of one or more dose reduction techniques (e.g., Au tomated exposure control, adjustment of the mA and/or kV according to patient size, use of iterative reconstruction technique) 2010 [employer]- All Rights Reserved Reading location - IP/workstation name: [email or web address]
--- NOTE | 2018-06-02 20:19 | XCELERA REPORT ---
[address] [address] Transthoracic Echocardiogram Report Name: LIAN JO Age: 82 yrs Gender: Female : 1935 Patient Status: Inpatient Patient Location: [address] [place] [address] Study Date: 05/28/2018 02:08 PM Procedure: A two-dimensional transthoracic echocardiogram with color flow and Doppler was performed. Study Quality: Technically suboptimal. The study was technically difficult with many images being suboptimal in quality. Images were not obtained from all of the standard acoustic windows due to the limited scope of the study. Reason For Study: cardiac arrythmia History: cardiac arrythmia. Ordering Physician: BELLO WREN Performed By: Radha Gilliam Interpretation Summary The left ventricle is normal in size. There is normal left ventricular wall thickness. No True apical 2 chamber views obtained.Hence cannot comment on the apical anterior , the basal anterior, the basal inferior and apical inferior bear.The mid anterior , the mid inferior and the rest of the LV bear contract normally. .Normal LVEF is normal and is greater than 65% in the limited views. Doppler measurements suggest impaired left ventricular relaxation, which is associated with grade I/IV or mild diastolic dysfunction There is no thrombus. The right ventricle is not well visualized secondary to technical limitations The right atrium is normal. The left atrial size is normal. There is no evidence of mitral valve prolapse. There is mild to moderate mitral annular calcification. There is no vegetation seen on the mitral valve. There is no mitral valve stenosis. There is no mitral regurgitation noted. There is no aortic valve stenosis There is no LVOT obstruction. No aortic regurgitation is present. There is no tricuspid stenosis. Probably trace TR.Unable to calculate RVSP due lack of TR jet. There is no pulmonic valvular stenosis. Probably no TR. There is no pericardial effusion. MMode/2D Measurements & Calculations RVDd: 3.3 cm LVIDd: 4.7 cm FS: 43.4 % Ao root diam: 2.5 cm IVSd: 0.89 cm LVIDs: 2.7 cm EDV(Teich): 101.9 ml Ao root area: 5.0 cm2 LVPWd: 0.96 cm ESV(Teich): 25.9 ml EF(Teich): 74.5 % Doppler Measurements & Calculations MV E max jaylen: MV dec slope: Ao V2 max: LV V1 max P.6 cm/sec 228.8 cm/sec 4.3 mmHg MV A max jaylen: 421.7 cm/sec2 Ao max PG: LV V1 mean P.9 cm/sec MV dec time: 20.9 mmHg 2.2 mmHg MV E/A: 0.68 0.26 sec Ao V2 mean: LV V1 max: 163.2 cm/sec 103.3 cm/sec Ao mean PG: LV V1 mean: 11.9 mmHg 70.5 cm/sec Ao V2 VTI: 57.8 cm LV V1 VTI: 27.0 cm PA V2 max: TR max jaylen: 112.6 cm/sec 293.2 cm/sec PA max P.1 mmHg TR max P.4 mmHg Left Ventricle The left ventricle is normal in size. There is normal left ventricular wall thickness. No True apical 2 chamber views obtained.Hence cannot comment on the apical anterior , the basal anterior, the basal inferior and apical inferior bear.The mid anterior , the mid inferior and the rest of the LV bear contract normally. .Normal LVEF is normal and is greater than 65% in the limited views. Doppler measurements suggest impaired left ventricular relaxation, which is associated with grade I/IV or mild diastolic dysfunction. There is no thrombus. Right Ventricle The right ventricle is not well visualized secondary to technical limitations. Atria The right atrium is normal. The left atrial size is normal. Mitral Valve There is mild to moderate mitral annular calcification. There is no evidence of mitral valve prolapse. There is no vegetation seen on the mitral valve. There is no mitral valve stenosis. There is no mitral regurgitation noted. Aortic Valve There is no aortic valvular vegetation. There is no aortic valve stenosis. There is no LVOT obstruction. No aortic regurgitation is present. Tricuspid Valve There is no tricuspid stenosis. Probably trace TR.Unable to calculate RVSP due lack of TR jet. Pulmonic Valve There is no pulmonic valvular stenosis. Probably no TR. Great Vessels The aortic root is not well visualized but is probably normal size. Effusions There is no pericardial effusion. : BELLO WREN > Terri Bustillo
[2018-06-02] MEDS ORDERED: LEVOFLOXACIN 750 MG/D5W RTU 750 MG/150 ML RTUPB IV ONE (21:00)
[2018-06-02] MEDS: BIMATOPROST 0.01% OPH SOLN 2.5 ML/BOTTLE OS SCH (22:40)
[2018-06-03] MEDS: CHLORPHENIRAMINE MALEATE 4 MG TABLET PO SCH ×4 (01:22→17:42)
[2018-06-03] MEDS: LEVOTHYROXINE SODIUM 0.088 MG TABLET PO SCH (05:10)
[2018-06-03] MEDS: HEPARIN SOD (PORCINE) 5,000 UNIT/ML 1 ML SYRINGE SUBCUT SCH ×3 (05:10→22:05)
[2018-06-03] MEDS: LEVALBUTEROL HCL NEB 0.63 MG/3 ML AMPUL NEB PRN ×2 (08:09→19:37)
[2018-06-03] MEDS: ACETYLCYSTEINE 10% NEB 400 MG/4 ML VIAL NEB SCH ×2 (08:10→19:37)
[2018-06-03] MEDS ORDERED: HYDRALAZINE HCL 25 MG TABLET PO SCH (08:15)
[2018-06-03] MEDS: CALCIUM CARBONATE 250 MG/VITAMIN D3 125 UNIT TABLET PO SCH (09:02)
[2018-06-03] MEDS: ASPIRIN 81 MG TABLET, CHEWABLE PO SCH (09:02)
[2018-06-03] MEDS: FLUTICASONE NASAL SPRAY 50 MCG/SPRY 120 SPRAY/16 GM NASL SCH ×2 (09:02→22:05)
[2018-06-03] MEDS: SENNOSIDES/DOCUSATE 8.6-50 MG 1 EACH TABLET PO SCH (09:02)
[2018-06-03] MEDS: LISINOPRIL 10 MG TABLET PO SCH (09:03)
[2018-06-03] MEDS: ACETAMINOPHEN 325 MG TABLET PO PRN (09:03)
[2018-06-03] MEDS: SERTRALINE HCL 50 MG TABLET PO SCH (09:03)
[2018-06-03] MEDS: AMLODIPINE BESYLATE 5 MG TABLET PO SCH ×2 (09:03→17:41)
[2018-06-03] MEDS: PREDNISONE 10 MG TABLET PO SCH ×2 (09:04→17:42)
[2018-06-03 09:39] LABS: HEMATOCRIT 29.8 % (36.0-47.0); MEAN CORPUSCULAR HGB CONC 33.6 g/dL (32.0-36.0); MEAN CORPUSCULAR VOLUME 86 fl (80-97); PLATELET COUNT 207 10^3/uL (150-450); RED BLOOD COUNT 3.46 10^6/uL (3.72-5.28); RED CELL DISTRIBUTION WIDTH 15.3 % (11.5-14.0); WHITE BLOOD COUNT 12.1 10^3/uL (4.0-10.5)
[2018-06-03 09:51] LABS: ANION GAP 6 (5-19); BLOOD UREA NITROGEN 22 mg/dL (7-20); CALCIUM 8.3 mg/dL (8.4-10.2); CARBON DIOXIDE 24 mmol/L (22-30); CHLORIDE 110 mmol/L (98-107); GLUCOSE 102 mg/dL (75-110); POTASSIUM 3.9 mmol/L (3.6-5.0)
[2018-06-03 10:19] LABS: ABSOLUTE LYMPHOCYTES# (MANUAL) 0.6 10^3/uL (0.5-4.7); ABSOLUTE MONOCYTES # (MANUAL) 0.2 10^3/uL (0.1-1.4); ABSOLUTE NEUTROPHILS# (MANUAL) 11.3 10^3/uL (1.7-8.2); BAND NEUTROPHILS % (MANUAL) 6 % (3-5); BASOPHILS % (MANUAL) 0 % (0-2); EOSINOPHILS % (MANUAL) 0 % (0-6); LYMPHOCYTES % (MANUAL) 5 % (13-45); MONOCYTES % (MANUAL) 2 % (3-13); SEGMENTED NEUTROPHILS % (MAN) 83 % (42-78); TOTAL CELLS COUNTED 100
[2018-06-03 10:20] LABS: METAMYELOCYTES % (MANUAL) 2 % (0); MYELOCYTES % (MANUAL) 2 % (0)
[2018-06-03 10:21] LABS: ANISOCYTOSIS SLIGHT; ROULEAUX 1+
[2018-06-03 10:22] LABS: HYPOCHROMASIA SLIGHT; OVALOCYTES 1+; PLATELET COMMENT ADEQUATE; POIKILOCYTOSIS 1+; POLYCHROMASIA SLIGHT; TEAR DROP CELLS SLIGHT; TOXIC GRANULATION SLIGHT
[2018-06-03 15:10] LABS: INTERNATIONAL RATION (INR) 1.07; PROTHROMBIN TIME 14.4 SEC (11.4-15.4)
--- NOTE | 2018-06-03 15:46 | PDOC PROGRESS REPORT ---
Subjective Progress Note for:: 06/03/18 Subjective:: This is a 82 year old female assisted living resident with past medical history of CVA and dementia who initially presented with diarrhea was admitted for colitis and bilateral pneumonia. She was started on Rocephin and Flagyl. Chest CT done on 05/24 shows extensive right sided consolidation, multifocal PNA and possible endobronchial plugging. Results discussed with patient and family including son/DPOA on bedside. She is a full code. She was initially started on broad spectrum IV antibiotics. She completed 8 days of antibiotics and these were discontinued by preceding hospitalist. 06/02/18: Repeat chest CT shows worsening findings and increasing pleural effusion with persistent consolidation. Discussed with pulmonology. Restarted antibiotics. No acute event overnight. Upon encounter, she is comfortable at rest and is saturating well on 2L via NC. Discussed with pulm and recommend thoracentesis prior to possible bronchoscopy. Results and plan of care discussed with patient and son/DPOA, Sriram including risk pneumothorax with thoracentesis and both want to proceed. Reason For Visit: PNEUMONIA Physical Exam Vital Signs: Temp Pulse Resp BP Pulse Ox 98.2 F 61 18 154/58 H 100 06/03/18 11:25 06/03/18 11:25 06/03/18 11:25 06/03/18 11:25 06/03/18 11:25 Intake & Output 06/02/18 06/03/18 06/04/18 06:59 06:59 06:59 Intake Total 549 1110 Balance 549 1110 Weight 127 lb 13.89 oz 128 lb 8.472 oz General appearance: PRESENT: no acute distress, well-developed, well-nourished Head exam: PRESENT: atraumatic, normocephalic Eye exam: PRESENT: conjunctiva pink, EOMI, PERRLA. ABSENT: scleral icterus Ear exam: PRESENT: normal external ear exam Mouth exam: PRESENT: moist, tongue midline Neck exam: ABSENT: carotid bruit, JVD, lymphadenopathy, thyromegaly Respiratory exam: PRESENT: decreased breath sounds - on both bases with more prominent decreased BS on the right, rales, rhonchi. ABSENT: wheezes GI/Abdominal exam: PRESENT: normal bowel sounds, soft. ABSENT: distended, guarding, mass, organolmegaly, rebound, tenderness Rectal exam: PRESENT: deferred Neurological exam: PRESENT: alert, awake, oriented to person, oriented to place, oriented to time Results Laboratory Results: 06/03/18 08:54 06/03/18 08:54 06/03/18 06/03/18 08:54 08:54 WBC 12.1 H RBC 3.46 L Hgb 10.0 L Hct 29.8 L MCV 86 MCH 29.0 MCHC 33.6 RDW 15.3 H Plt Count 207 Seg Neutrophils % Not Reportable Lymphocytes % Not Reportable Monocytes % Not Reportable Eosinophils % Not Reportable Basophils % Not Reportable Absolute Neutrophils Not Reportable Absolute Lymphocytes Not Reportable Absolute Monocytes Not Reportable Absolute Eosinophils Not Reportable Absolute Basophils Not Reportable Sodium 140.0 Potassium 3.9 Chloride 110 H Carbon Dioxide 24 Anion Gap 6 BUN 22 H Creatinine 0.78 Est GFR ( Amer) > 60 Est GFR (Non-Af Amer) > 60 Glucose 102 Calcium 8.3 L 05/22/18 05/22/18 05/28/18 21:42 21:42 11:00 Creatine Kinase 960 H 25 L CK-MB (CK-2) 6.47 H Troponin I 0.022 05/28/18 05/28/18 05/28/18 11:00 18:34 18:34 Creatine Kinase 28 L CK-MB (CK-2) 0.85 0.85 Troponin I < 0.012 < 0.012 05/29/18 05/29/18 00:20 00:20 Creatine Kinase 23 L CK-MB (CK-2) 0.82 Troponin I < 0.012 Impressions: Abdomen Ultrasound 05/22/18 21:25 IMPRESSION: The gallbladder could not be visualized, due to body habitus and inability to position patient correctly. The common bile duct is normal. 7 cm cyst in the right kidney. Abdomen/Pelvis CT 05/22/18 22:54 IMPRESSION: Fluid within the proximal two thirds of the gallbladder which could be secondary to an underlying diarrheal process. Possible developing bibasilar pneumonia. Chest X-Ray 05/29/18 00:00 IMPRESSION: Right upper and lower lobe pneumonia. No significant change. Chest CT 06/02/18 13:50 IMPRESSION: BILATERAL PLEURAL EFFUSIONS, RIGHT GREATER THAN LEFT, HAVE I NCREASED IN SIZE. PATCHY GROUND-GLASS AIRSPACE DISEASE IN THE UPPER LOBES HAS INCREASED SINCE THE PRIOR STUDY. CONSOLIDATION/COMPRESSIVE ATELECTASIS IN THE RIGHT LOWER LOBE. Assessment & Plan - Diagnosis (1) Acute respiratory failure with hypoxia Is this a current diagnosis for this admission?: Yes Plan: Secondary to multifocal pneumonia. Currently saturating well on 2L via NC. (2) HCAP (healthcare-associated pneumonia) Is this a current diagnosis for this admission?: Yes Plan: As per number #1. Low threshold for ICU transfer if patient develops desaturation or worsening SOB. Chest CT ordered and shows multifocal pneumonia with extensive right lung consolidation and possible endobronchial plugging. Patient did have recent hospitalization. Broaden antibiotic coverage and switched to vancomycin and Zosyn. Also on azithromycin. Will consult pulmonology for further recommendations. Continue breathing treatments. Will add mucomyst as well. Chest CT done on 05/24 shows extensive right sided consolidation, multifocal PNA and possible endobronchial plugging. Results discussed with patient and family including son/DPOA on bedside. She is a full code. She was initially started on broad spectrum IV antibiotics. She completed 8 days of antibiotics and these were discontinued by preceding hospitalist on 05/31/18. 06/02/18: Repeat chest CT shows worsening findings and increasing pleural effusion with persistent consolidation. Discussed with pulmonology. Restarted antibiotics. Persistent effusion despite IV antibiotics raises concern for post obstructive pneumonia. Discussed with pulm and recommend thoracentesis prior to possible bronchoscopy. Results and plan of care discussed with patient and son/DPOA, Sriram including risk pneumothorax with thoracentesis and both want to proceed. (3) Pleural effusion Is this a current diagnosis for this admission?: Yes Plan: As per number 2. (4) Colitis Is this a current diagnosis for this admission?: Yes Plan: Resolved. No recurrence of diarrhea or abdominal pain. Flagyl DCed. - Time Time Spent with patient: 35 or more minutes
[2018-06-03 16:15] LABS: PATH REVIEW PATHOLOGIST REVIEWED
[2018-06-03] MEDS: HYDRALAZINE HCL 25 MG TABLET PO SCH (18:41)
[2018-06-03] MEDS ORDERED: DEXTROSE 40% GEL 15 GM TUBE PO PRN ×2 (18:53)
[2018-06-03] MEDS ORDERED: DEXTROSE 50%-WATER 25 GM/50 ML DISP.SYRIN IV PRN ×2 (18:53)
[2018-06-03] MEDS ORDERED: GLUCAGON,HUMAN RECOMB 1 MG INJ SUBCUT PRN (18:53)
[2018-06-03] MEDS: BIMATOPROST 0.01% OPH SOLN 2.5 ML/BOTTLE OS SCH (22:05)
[2018-06-04] MEDS: CHLORPHENIRAMINE MALEATE 4 MG TABLET PO SCH ×4 (03:03→18:26)
[2018-06-04] MEDS: HYDRALAZINE HCL 25 MG TABLET PO SCH ×4 (03:03→17:05)
[2018-06-04] MEDS: HEPARIN SOD (PORCINE) 5,000 UNIT/ML 1 ML SYRINGE SUBCUT SCH ×3 (05:17→22:41)
[2018-06-04] MEDS: LEVOTHYROXINE SODIUM 0.088 MG TABLET PO SCH (05:21)
[2018-06-04] MEDS: LEVALBUTEROL HCL NEB 0.63 MG/3 ML AMPUL NEB PRN ×2 (08:11→20:33)
[2018-06-04] MEDS: ACETYLCYSTEINE 10% NEB 400 MG/4 ML VIAL NEB SCH ×2 (08:11→20:34)
[2018-06-04] MEDS: LISINOPRIL 10 MG TABLET PO SCH (09:53)
[2018-06-04] MEDS: AMLODIPINE BESYLATE 5 MG TABLET PO SCH ×2 (09:53→22:40)
[2018-06-04] MEDS: PREDNISONE 10 MG TABLET PO SCH ×2 (09:53→17:06)
[2018-06-04] MEDS: ASPIRIN 81 MG TABLET, CHEWABLE PO SCH (09:53)
[2018-06-04] MEDS: SERTRALINE HCL 50 MG TABLET PO SCH (09:53)
[2018-06-04] MEDS: SENNOSIDES/DOCUSATE 8.6-50 MG 1 EACH TABLET PO SCH (09:54)
[2018-06-04] MEDS: CALCIUM CARBONATE 250 MG/VITAMIN D3 125 UNIT TABLET PO SCH (09:54)
[2018-06-04] MEDS: FLUTICASONE NASAL SPRAY 50 MCG/SPRY 120 SPRAY/16 GM NASL SCH ×2 (11:05→22:41)
--- NOTE | 2018-06-04 11:07 | RADIOLOGY REPORT (SQ) ---
EXAM DESCRIPTION: CHEST SINGLE VIEW COMPLETED DATE/TIME: 06/04/2018 10:55 am REASON FOR STUDY: S/P RT THORACENTESIS COMPARISON: AP chest 05/29/2018 EXAM PARAMETERS: NUMBER OF VIEWS: One view. TECHNIQUE: Single frontal radiographic view of the chest acquired. RADIATION DOSE: NA LIMITATIONS: None. FINDINGS: LUNGS AND PLEURA: Post right thoracentesis with removal of 600 mL of fluid from the right chest. No pneumothorax. No residual right pleural effusion. Minimal medial right basilar airspace disease likely atelectasis. Left lung and pleural space unremarkable. MEDIASTINUM AND HILAR STRUCTURES: No masses. Contour normal. HEART AND VASCULAR STRUCTURES: Stable borderline cardiomegaly BONES: No acute findings. HARDWARE: None in the chest. OTHER: No other significant finding. IMPRESSION: No pneumothorax post right thoracentesis TECHNICAL DOCUMENTATION: JOB ID: [id number] [employer]- All Rights Reserved Reading location - IP/workstation name: [email or web address]
--- NOTE | 2018-06-04 11:21 | RADIOLOGY REPORT (SQ) ---
EXAM DESCRIPTION: U/S THORACENTESIS WITH IMAGING COMPLETED DATE/TIME: 06/04/2018 10:57 am REASON FOR STUDY: pleural effusions R>L COMPARISON: CT chest 06/02/2018 LIMITATIONS: None. PROCEDURE: Procedure, risks, benefit, and alternative explained to patient who then gave written con sent. The posterior right chest wall was marked using ultrasound guidance. A time-out was called fo r correct marking verification. Chest prepped and draped using sterile technique. Local anesthesia a chieved using 5.5 ml of 1% lidocaine injection. A 6fr Safe-T- Centesis set was introduced into the r ight pleural space. Fluid was aspirated. The catheter was removed and the entry site was covered wi th sterile bandage. No immediate complications noted. Fluid was sent for testing including cell coun t, Gram stain culture and sensitivity, cytology. No pneumothorax on post procedure chest x-ray dicta marcy separately Images acquired during the procedure were stored on PACS. FINDINGS: ENTRY SITE: Right posterior chest FLUID VOLUME: 600 mL clear straw-colored fluid FLUID ANALYSIS: Sent for testing OTHER: Pending laboratory studies on the fluid IMPRESSION: SUCCESSFUL THORACENTESIS USING ULTRASOUND GUIDANCE. COMMENT: Patient medication list reviewed: Yes- Quality ID# [id number]:Eligible professional attests to doc umenting in the medical record they obtained, updated, or reviewed the patient's current medications. TECHNICAL DOCUMENTATION: JOB ID: [id number] [employer]- All Rights Reserved Reading location - IP/workstation name: [email or web address]
[2018-06-04] MEDS ORDERED: KETOROLAC TROMETHAMINE INJ/PF 30 MG/1 ML SDV IV PRN (12:09)
[2018-06-04 12:43] LABS: FLUID COLOR STRAW; FLUID TYPE PLEURAL
[2018-06-04 12:44] LABS: FLUID APPEARANCE SLIGHTLY HAZY; FLUID VISCOSITY LIQUID
[2018-06-04] MEDS ORDERED: KETOROLAC TROMETHAMINE INJ/PF 30 MG/1 ML SDV IV ONE (13:00)
--- NOTE | 2018-06-04 14:32 | RADIOLOGY REPORT (SQ) ---
EXAM DESCRIPTION: CHEST SINGLE VIEW COMPLETED DATE/TIME: 06/04/2018 2:24 pm REASON FOR STUDY: 2 HOURS S/P RT THORACENTESIS COMPARISON: 06/04/2018 at 1050 hours. EXAM PARAMETERS: NUMBER OF VIEWS: One view. TECHNIQUE: Single frontal radiographic view of the chest acquired. RADIATION DOSE: NA LIMITATIONS: None. FINDINGS: LUNGS AND PLEURA: No pneumothorax. Faint airspace disease in the right upper lobe. MEDIASTINUM AND HILAR STRUCTURES: No masses. Contour normal. HEART AND VASCULAR STRUCTURES: Heart normal in size. Normal vasculature. BONES: No acute findings. HARDWARE: None in the chest. OTHER: No other significant finding. IMPRESSION: NO PNEUMOTHORAX FOLLOWING RIGHT THORACENTESIS. TECHNICAL DOCUMENTATION: JOB ID: [id number] [employer]- All Rights Reserved Reading location - IP/workstation name: [email or web address]
--- NOTE | 2018-06-04 16:56 | PDOC PROGRESS REPORT ---
Subjective Progress Note for:: 06/04/18 Subjective:: This is a 82 year old female assisted living resident with past medical history of CVA and dementia who initially presented with diarrhea was admitted for colitis and bilateral pneumonia. She was started on Rocephin and Flagyl. Chest CT done on 05/24 shows extensive right sided consolidation, multifocal PNA and possible endobronchial plugging. Results discussed with patient and family including son/DPOA on bedside. She is a full code. She was initially started on broad spectrum IV antibiotics. She completed 8 days of antibiotics and these were discontinued by preceding hospitalist. 06/02/18: Repeat chest CT shows worsening findings and increasing pleural effusion with persistent consolidation. Discussed with pulmonology. Restarted antibiotics. 06/03/18: She is comfortable at rest and is saturating well on 2L via NC. Discussed with pulm and recommend thoracentesis prior to possible bronchoscopy. Results and plan of care discussed with patient and son/DPOA, Sriram including risk pneumothorax with thoracentesis and both want to proceed. 06/04/18: No acute event overnight. She just had thoracentesis and says it did improve her breathing. She does complain of mild pain on the needle insertion site. Reason For Visit: PNEUMONIA Physical Exam Vital Signs: Temp Pulse Resp BP Pulse Ox 98.5 F 56 L 18 154/37 H 97 06/04/18 04:00 06/04/18 14:00 06/04/18 08:10 06/04/18 04:00 06/04/18 15:54 Intake & Output 06/03/18 06/04/18 06/05/18 06:59 06:59 06:59 Intake Total 1110 1165 0 Balance 1110 1165 0 Weight 128 lb 8.472 oz 136 lb 14.513 oz Results Laboratory Results: 06/03/18 08:54 06/03/18 08:54 06/04/18 10:36 Fluid Type PLEURAL Fluid Source Fluid Color STRAW Fluid Appearance SLIGHTLY HAZY Fluid Viscosity LIQUID Fluid WBC 61 Fluid RBC 208 05/22/18 05/22/18 05/28/18 21:42 21:42 11:00 Creatine Kinase 960 H 25 L CK-MB (CK-2) 6.47 H Troponin I 0.022 05/28/18 05/28/18 05/28/18 11:00 18:34 18:34 Creatine Kinase 28 L CK-MB (CK-2) 0.85 0.85 Troponin I < 0.012 < 0.012 05/29/18 05/29/18 00:20 00:20 Creatine Kinase 23 L CK-MB (CK-2) 0.82 Troponin I < 0.012 Impressions: Abdomen Ultrasound 05/22/18 21:25 IMPRESSION: The gallbladder could not be visualized, due to body habitus and inability to position patient correctly. The common bile duct is normal. 7 cm cyst in the right kidney. Abdomen/Pelvis CT 05/22/18 22:54 IMPRESSION: Fluid within the proximal two thirds of the gallbladder which could be secondary to an underlying diarrheal process. Possible developing bibasilar pneumonia. Chest CT 06/02/18 13:50 IMPRESSION: BILATERAL PLEURAL EFFUSIONS, RIGHT GREATER THAN LEFT, HAVE INCREASED IN SIZE. PATCHY GROUND-GLASS AIRSPACE DISEASE IN THE UPPER LOBES HAS INCREASED SINCE THE PRIOR STUDY. CONSOLIDATION/COMPRESSIVE ATELECTASIS IN THE RIGHT LOWER LOBE. Chest X-Ray 06/04/18 00:00 IMPRESSION: NO PNEUMOTHORAX FOLLOWING RIGHT THORACENTESIS. Thoracentesis Ultrasound 06/04/18 11:16 IMPRESSION: SUCCESSFUL THORACENTESIS USING ULTRASOUND GUIDANCE. Assessment & Plan - Diagnosis (1) Acute respiratory failure with hypoxia Is this a current diagnosis for this admission?: Yes (2) HCAP (healthcare-associated pneumonia) Is this a current diagnosis for this admission?: Yes Plan: As per number #1. Low threshold for ICU transfer if patient develops marine aturation or worsening SOB. Chest CT ordered and shows multifocal pneumonia with extensive right lung consolidation and possible endobronchial plugging. Patient did have recent hospitalization. Broaden antibiotic coverage and switched to vancomycin and Zosyn. Also on azithromycin. Will consult pulmonology for further recommendations. Continue breathing treatments. Will add mucomyst as well. Chest CT done on 05/24 shows extensive right sided consolidation, multifocal PNA and possible endobronchial plugging. Results discussed with patient and family including son/DPOA on bedside. She is a full code. She was initially started on broad spectrum IV antibiotics. She completed 8 days of antibiotics and these were discontinued by preceding hospitalist on 05/31/18. 06/02/18: Repeat chest CT shows worsening findings and increasing pleural effusion with persistent consolidation. Discussed with pulmonology. Restarted antibiotics. Persistent effusion despite IV antibiotics raises concern for post obstructive pneumonia. 1/3/19: Patient had thoracentesis and had 600 cc drained. Pleural fluid studies pending. (3) Pleural effusion Is this a current diagnosis for this admission?: Yes Plan: S/P thoracentesis on the right 06/04/18 with 600 cc drained. Pleural fluid studies pending. (4) Colitis Is this a current diagnosis for this admission?: Yes Plan: Resolved. No recurrence of diarrhea or abdominal pain. Celi Deshpande. - Time Time Spent with patient: 15-24 minutes
[2018-06-04] MEDS ORDERED: LEVOFLOXACIN 750 MG/D5W RTU 750 MG/150 ML RTUPB IV SCH (22:00)
[2018-06-04] MEDS: BIMATOPROST 0.01% OPH SOLN 2.5 ML/BOTTLE OS SCH (22:41)
[2018-06-05] MEDS: HYDRALAZINE HCL 25 MG TABLET PO SCH ×4 (00:19→18:16)
[2018-06-05] MEDS: CHLORPHENIRAMINE MALEATE 4 MG TABLET PO SCH ×4 (00:19→18:16)
[2018-06-05] MEDS: LEVOTHYROXINE SODIUM 0.088 MG TABLET PO SCH (05:18)
[2018-06-05] MEDS: HEPARIN SOD (PORCINE) 5,000 UNIT/ML 1 ML SYRINGE SUBCUT SCH ×3 (05:18→22:00)
[2018-06-05] MEDS: ACETYLCYSTEINE 10% NEB 400 MG/4 ML VIAL NEB SCH ×2 (09:02→19:52)
[2018-06-05] MEDS: LEVALBUTEROL HCL NEB 0.63 MG/3 ML AMPUL NEB PRN ×2 (09:15→19:52)
[2018-06-05] MEDS: AMLODIPINE BESYLATE 5 MG TABLET PO SCH ×2 (10:19→22:01)
[2018-06-05] MEDS: SERTRALINE HCL 50 MG TABLET PO SCH (10:19)
[2018-06-05] MEDS: CALCIUM CARBONATE 250 MG/VITAMIN D3 125 UNIT TABLET PO SCH (10:20)
[2018-06-05] MEDS: LISINOPRIL 10 MG TABLET PO SCH (10:20)
[2018-06-05] MEDS: SENNOSIDES/DOCUSATE 8.6-50 MG 1 EACH TABLET PO SCH (10:20)
[2018-06-05] MEDS: ASPIRIN 81 MG TABLET, CHEWABLE PO SCH (10:21)
[2018-06-05] MEDS: FLUTICASONE NASAL SPRAY 50 MCG/SPRY 120 SPRAY/16 GM NASL SCH ×2 (10:25→22:00)
[2018-06-05] MEDS: PREDNISONE 10 MG TABLET PO SCH ×2 (10:25→18:16)
[2018-06-05 12:03] LABS: PATH REVIEW PATHOLOGIST REVIEWED
[2018-06-05 14:51] LABS: TOTAL PROTEIN BODY FLUID 1.7 g/dL (.)
--- NOTE | 2018-06-05 15:56 | PDOC PROGRESS REPORT ---
Subjective Progress Note for:: 06/05/18 Subjective:: This is a 82 year old female assisted living resident with past medical history of CVA and dementia who initially presented with diarrhea was admitted for colitis and bilateral pneumonia. She was started on Rocephin and Flagyl. Chest CT done on 05/24 shows extensive right sided consolidation, multifocal PNA and possible endobronchial plugging. Results discussed with patient and family including son/DPOA on bedside. She is a full code. She was initially started on broad spectrum IV antibiotics. She completed 8 days of antibiotics and these were discontinued by preceding hospitalist. 06/02/18: Repeat chest CT shows worsening findings and increasing pleural effusion with persistent consolidation. Discussed with pulmonology. Restarted antibiotics. 06/03/18: She is comfortable at rest and is saturating well on 2L via NC. Discussed with pulm and recommend thoracentesis prior to possible bronchoscopy. Results and plan of care discussed with patient and son/DPOA, Sriram including risk pneumothorax with thoracentesis and both want to proceed. 06/04/18: She just had thoracentesis and says it did improve her breathing. She does complain of mild pain on the needle insertion site. 06/05/18: No acute event overnight. No worsening of SOB. Pleural fluid analysis is consistent with transudative fluid. Discussed with Dr. Weller over the phone who is planning for possible bronch on Friday or Friday. Reason For Visit: PNEUMONIA Physical Exam Vital Signs: Temp Pulse Resp BP Pulse Ox 97.7 F 61 16 112/57 L 96 06/05/18 08:05 06/05/18 09:15 06/05/18 09:15 06/05/18 08:05 06/05/18 09:15 Intake & Output 06/04/18 06/05/18 06/06/18 06:59 06:59 06:59 Intake Total 1165 150 Balance 1165 150 Weight 136 lb 14.513 oz 133 lb 13.129 oz General appearance: PRESENT: no acute distress, well-developed, well-nourished Head exam: PRESENT: atraumatic, normocephalic Eye exam: PRESENT: conjunctiva pink, EOMI, PERRLA. ABSENT: scleral icterus Ear exam: PRESENT: normal external ear exam Mouth exam: PRESENT: moist, tongue midline Neck exam: ABSENT: carotid bruit, JVD, lymphadenopathy, thyromegaly Respiratory exam: PRESENT: decreased breath sounds - slightly decreased BS on the right base, rhonchi. ABSENT: rales, wheezes Cardiovascular exam: PRESENT: RRR. ABSENT: diastolic murmur, rubs, systolic murmur Pulses: PRESENT: normal dorsalis pedis pul GI/Abdominal exam: PRESENT: normal bowel sounds, soft. ABSENT: distended, guarding, mass, organolmegaly, rebound, tenderness Rectal exam: PRESENT: deferred Neurological exam: PRESENT: alert, awake, oriented to person, oriented to place, oriented to time, oriented to situation Results Laboratory Results: 06/03/18 08:54 06/03/18 08:54 06/04/18 10:36 Fluid Total Protein 1.7 Fluid LDH 82 05/22/18 05/22/18 05/28/18 21:42 21:42 11:00 Creatine Kinase 960 H 25 L CK-MB (CK-2) 6.47 H Troponin I 0.022 05/28/18 05/28/18 05/28/18 11:00 18:34 18:34 Creatine Kinase 28 L CK-MB (CK-2) 0.85 0.85 Troponin I < 0.012 < 0.012 05/29/18 05/29/18 00:20 00:20 Creatine Kinase 23 L CK-MB (CK-2) 0.82 Troponin I < 0.012 Impressions: Abdomen Ultrasound 05/22/18 21:25 IMPRESSION: The gallbladder could not be visualized, due to body habitus and inability to position patient correctly. The common bile duct is normal. 7 cm cyst in the right kidney. Abdomen/Pelvis CT 05/22/18 22:54 IMPRESSION: Fluid within the proximal two thirds of the gallbladder which could be secondary to an underlying diarrheal process. Possible developing bibasilar pneumonia. Chest CT 06/02/18 13:50 IMPRESSION: BILATERAL PLEURAL EFFUSIONS, RIGHT GREATER THAN LEFT, HAVE INCREASED IN SIZE. PATCHY GROUND-GLASS AIRSPACE DISEASE IN THE UPPER LOBES HAS INCREASED SINCE THE PRIOR STUDY. CONSOLIDATION/COMPRESSIVE ATELECTASIS IN THE RIGHT LOWER LOBE. Chest X-Ray 06/04/18 00:00 IMPRESSION: NO PNEUMOTHORAX FOLLOWING RIGHT THORACENTESIS. Thoracentesis Ultrasound 06/04/18 11:16 IMPRESSION: SUCCESSFUL THORACENTESIS USING ULTRASOUND GUIDANCE. Assessment & Plan - Diagnosis (1) Acute respiratory failure with hypoxia Is this a current diagnosis for this admission?: Yes Plan: Secondary to multifocal pneumonia. Currently saturating well on 2L via NC. (2) Pleural effusion Is this a current diagnosis for this admission?: Yes Plan: S/P thoracentesis on the right 06/04/18 with 600 cc drained. 06/04/18: Patient had thoracentesis and had 600 cc drained. Pleural fluid analysis is consistent with transudative effusion which may be from compressive atelectasis. Noted echo is unremarkable aside from mild/grade 1 diastolic dysfunction. As mentioned, dicussed in lenth with Dr. Weller who plans on doing possible bronchoscopy on Friday or Friday. (3) HCAP (healthcare-associated pneumonia) Is this a current diagnosis for this admission?: Yes Plan: As per number #1. Low threshold for ICU transfer if patient develops desaturation or worsening SOB. Chest CT ordered and shows multifocal pneumonia with extensive right lung consolidation and possible endobronchial plugging. Patient did have recent hospitalization. Broaden antibiotic coverage and switched to vancomycin and Zosyn. Also on azithromycin. Will consult pulmonology for further recommendations. Continue breathing treatments. Will add mucomyst as well. Chest CT done on 05/24 shows extensive right sided consolidation, multifocal PNA and possible endobronchial plugging. Results discussed with patient and family including son/DPOA on bedside. She is a full code. She was initially started on broad spectrum IV antibiotics. She completed 8 days of antibiotics and these were discontinued by preceding hospitalist on 05/31/18. 06/02/18: Repeat chest CT shows worsening findings and increasing pleural effusion with persistent consolidation. Discussed with pulmonology. Restarted antibiotics. Persistent effusion despite IV antibiotics raises concern for post obstructive pneumonia. (4) Colitis Is this a current diagnosis for this admission?: Yes Plan: Resolved. No recurrence of diarrhea or abdominal pain. Completed Flagyl. - Time Time Spent with patient: 25-34 minutes
[2018-06-05] MEDS: BIMATOPROST 0.01% OPH SOLN 2.5 ML/BOTTLE OS SCH (22:00)
[2018-06-06] MEDS: CHLORPHENIRAMINE MALEATE 4 MG TABLET PO SCH ×4 (00:14→18:37)
[2018-06-06] MEDS: HYDRALAZINE HCL 25 MG TABLET PO SCH ×4 (00:15→18:38)
[2018-06-06] MEDS: LEVOTHYROXINE SODIUM 0.088 MG TABLET PO SCH (06:00)
[2018-06-06] MEDS: HEPARIN SOD (PORCINE) 5,000 UNIT/ML 1 ML SYRINGE SUBCUT SCH ×3 (06:00→21:12)
[2018-06-06] MEDS: LEVALBUTEROL HCL NEB 0.63 MG/3 ML AMPUL NEB PRN ×2 (07:55→19:25)
[2018-06-06] MEDS: ACETYLCYSTEINE 10% NEB 400 MG/4 ML VIAL NEB SCH ×2 (07:55→19:32)
[2018-06-06] MEDS: LISINOPRIL 10 MG TABLET PO SCH (11:05)
[2018-06-06] MEDS: SERTRALINE HCL 50 MG TABLET PO SCH (11:06)
[2018-06-06] MEDS: AMLODIPINE BESYLATE 5 MG TABLET PO SCH ×2 (11:06→21:14)
[2018-06-06] MEDS: ASPIRIN 81 MG TABLET, CHEWABLE PO SCH (11:07)
[2018-06-06] MEDS: PREDNISONE 10 MG TABLET PO SCH ×2 (11:08→18:37)
[2018-06-06] MEDS: FLUTICASONE NASAL SPRAY 50 MCG/SPRY 120 SPRAY/16 GM NASL SCH ×2 (11:09→21:12)
[2018-06-06] MEDS: CALCIUM CARBONATE 250 MG/VITAMIN D3 125 UNIT TABLET PO SCH (11:09)
[2018-06-06] MEDS: SENNOSIDES/DOCUSATE 8.6-50 MG 1 EACH TABLET PO SCH (11:10)
--- NOTE | 2018-06-06 18:06 | PDOC PROGRESS REPORT ---
Subjective Progress Note for:: 06/06/18 Subjective:: This is a 82 year old female assisted living resident with past medical history of CVA and dementia who initially presented with diarrhea was admitted for colitis and bilateral pneumonia. She was started on Rocephin and Flagyl. Chest CT done on 05/24 shows extensive right sided consolidation, multifocal PNA and possible endobronchial plugging. Results discussed with patient and family including son/DPOA on bedside. She is a full code. She was initially started on broad spectrum IV antibiotics. She completed 8 days of antibiotics and these were discontinued by preceding hospitalist. 06/02/18: Repeat chest CT shows worsening findings and increasing pleural effusion with persistent consolidation. Discussed with pulmonology. Restarted antibiotics. 06/03/18: She is comfortable at rest and is saturating well on 2L via NC. Discussed with pulm and recommend thoracentesis prior to possible bronchoscopy. Results and plan of care discussed with patient and son/DPOA, Sriram including risk pneumothorax with thoracentesis and both want to proceed. 06/04/18: She just had thoracentesis and says it did improve her breathing. She does complain of mild pain on the needle insertion site. 06/05/18: No worsening of SOB. Pleural fluid analysis is consistent with transudative fluid. Discussed with Dr. Weller over the phone who is planning for possible bronch on Friday or Friday. 06/06/18: No acute event overnight. She says she still has SOB which is a little better after thoracentesis and has not worsened from yesterday. Denies chest pain. No fever or chills. Reason For Visit: PNEUMONIA Physical Exam Vital Signs: Temp Pulse Resp BP Pulse Ox 98.3 F 57 L 18 140/58 H 97 06/06/18 07:51 06/06/18 07:55 06/06/18 07:55 06/06/18 08:00 06/06/18 07:55 Intake & Output 06/05/18 06/06/18 06/07/18 06:59 06:59 06:59 Intake Total 150 750 Balance 150 750 Weight 133 lb 13.129 oz 126 lb 5.198 oz General appearance: PRESENT: no acute distress, well-developed, well-nourished Head exam: PRESENT: atraumatic, normocephalic Eye exam: PRESENT: conjunctiva pink, EOMI, PERRLA. ABSENT: scleral icterus Ear exam: PRESENT: normal external ear exam Mouth exam: PRESENT: moist, tongue midline Neck exam: ABSENT: carotid bruit, JVD, lymphadenopathy, thyromegaly Respiratory exam: PRESENT: rales - occasional rales on the right base, rhonchi. ABSENT: wheezes Cardiovascular exam: PRESENT: RRR. ABSENT: diastolic murmur, rubs, systolic murmur GI/Abdominal exam: PRESENT: normal bowel sounds, soft. ABSENT: distended, guarding, mass, organolmegaly, rebound, tenderness Rectal exam: PRESENT: deferred Neurological exam: PRESENT: alert, awake, oriented to person, oriented to place, oriented to time, oriented to situation, CN II-XII grossly intact. ABSENT: motor sensory deficit Results Laboratory Results: 06/03/18 08:54 06/03/18 08:54 05/22/18 05/22/18 05/28/18 21:42 21:42 11:00 Creatine Kinase 960 H 25 L CK-MB (CK-2) 6.47 H Troponin I 0.022 05/28/18 05/28/18 05/28/18 11:00 18:34 18:34 Creatine Kinase 28 L CK-MB (CK-2) 0.85 0.85 Troponin I < 0.012 < 0.012 05/29/18 05/29/18 00:20 00:20 Creatine Kinase 23 L CK-MB (CK-2) 0.82 Troponin I < 0.012 Impressions: Abdomen Ultrasound 05/22/18 21:25 IMPRESSION: The gallbladder could not be visualized, due to body habitus and inability to position patient correctly. The common bile duct is normal. 7 cm cyst in the right kidney. Abdomen/Pelvis CT 05/22/18 22:54 IMPRESSION: Fluid within the proximal two thirds of the gallbladder which could be secondary to an underlying diarrheal process. Possible developing bibasilar pneumonia. Chest CT 06/02/18 13:50 IMPRESSION: BILATERAL PLEURAL EFFUSIONS, RIGHT GREATER THAN LEFT, HAVE INCREASED IN SIZE. PATCHY GROUND-GLASS AIRSPACE DISEASE IN THE UPPER LOBES HAS INCREASED SINCE THE PRIOR STUDY. CONSOLIDATION/COMPRESSIVE ATELECTASIS IN THE RIGHT LOWER LOBE. Chest X-Ray 06/04/18 00:00 IMPRESSION: NO PNEUMOTHORAX FOLLOWING RIGHT THORACENTESIS. Thoracentesis Ultrasound 06/04/18 11:16 IMPRESSION: SUCCESSFUL THORACENTESIS USING ULTRASOUND GUIDANCE. Assessment & Plan - Diagnosis (1) Acute respiratory failure with hypoxia Is this a current diagnosis for this admission?: Yes Plan: Secondary to multifocal pneumonia with consolidation, compressive atelectasis (?endobronchial plugging). Currently saturating well on 2L via [place]. (2) Pleural effusion Is this a current diagnosis for this admission?: Yes Plan: S/P thoracentesis on the right 06/04/18 with 600 cc drained. 06/04/18: Patient had thoracentesis and had 600 cc drained. Pleural fluid analysis is consistent with transudative effusion which may be from compressive atelectasis. Noted echo is unremarkable aside from mild/grade 1 diastolic dysfunction. As mentioned, dicussed in length with Dr. Weller who plans on doing possible bronchoscopy on Friday or Friday. (3) HCAP (healthcare-associated pneumonia) Is this a current diagnosis for this admission?: Yes Plan: As per number #1. Low threshold for ICU transfer if patient develops desaturation or worsening SOB. Chest CT ordered and shows multifocal pneumonia with extensive right lung consolidation and possible endobronchial plugging. Patient did have recent hospitalization. Broaden antibiotic coverage and switched to vancomycin and Zosyn. Also on azithromycin. Will consult pulmonology for further recommendations. Continue breathing treatments. Will add mucomyst as well. Chest CT done on 05/24 shows extensive right sided consolidation, multifocal PNA and possible endobronchial plugging. Results discussed with patient and family including son/DPOA on bedside. She is a full code. She was initially started on broad spectrum IV antibiotics. She completed 8 days of antibiotics and these were discontinued by preceding hospitalist on 05/31/18. 06/02/18: Repeat chest CT shows worsening findings and increasing pleural effusion with persistent consolidation. Discussed with pulmonology. Restarted antibiotics. Persistent effusion despite IV antibiotics raises concern for post obstructive pneumonia. Continue antibiotics for now. Continue CPT and mucomyst. (4) Colitis Is this a current diagnosis for this admission?: Yes Plan: Resolved. No recurrence of diarrhea or abdominal pain. Completed Flagyl. - Time Time Spent with patient: 15-24 minutes
[2018-06-06] MEDS: LEVOFLOXACIN 750 MG TABLET PO SCH (18:38)
[2018-06-06] MEDS: BIMATOPROST 0.01% OPH SOLN 2.5 ML/BOTTLE OS SCH (21:12)
[2018-06-07] MEDS: CHLORPHENIRAMINE MALEATE 4 MG TABLET PO SCH ×5 (00:50→23:08)
[2018-06-07] MEDS: HYDRALAZINE HCL 25 MG TABLET PO SCH ×3 (00:50→11:59)
[2018-06-07] MEDS: HEPARIN SOD (PORCINE) 5,000 UNIT/ML 1 ML SYRINGE SUBCUT SCH ×3 (06:30→22:32)
[2018-06-07] MEDS: LEVOTHYROXINE SODIUM 0.088 MG TABLET PO SCH (06:30)
[2018-06-07] MEDS: LEVALBUTEROL HCL NEB 0.63 MG/3 ML AMPUL NEB PRN ×2 (08:44→19:26)
[2018-06-07] MEDS: ACETYLCYSTEINE 10% NEB 400 MG/4 ML VIAL NEB SCH ×2 (08:45→19:26)
[2018-06-07] MEDS: AMLODIPINE BESYLATE 5 MG TABLET PO SCH ×2 (10:35→22:32)
[2018-06-07] MEDS: SERTRALINE HCL 50 MG TABLET PO SCH (10:35)
[2018-06-07] MEDS: ASPIRIN 81 MG TABLET, CHEWABLE PO SCH (10:35)
[2018-06-07] MEDS: CALCIUM CARBONATE 250 MG/VITAMIN D3 125 UNIT TABLET PO SCH (10:35)
[2018-06-07] MEDS: LISINOPRIL 10 MG TABLET PO SCH ×2 (10:35→12:02)
[2018-06-07] MEDS: FLUTICASONE NASAL SPRAY 50 MCG/SPRY 120 SPRAY/16 GM NASL SCH ×2 (10:36→22:32)
[2018-06-07] MEDS: SENNOSIDES/DOCUSATE 8.6-50 MG 1 EACH TABLET PO SCH (10:37)
[2018-06-07] MEDS: PREDNISONE 10 MG TABLET PO SCH ×2 (10:37→19:03)
[2018-06-07 12:44] LABS: ABSOLUTE LYMPHOCYTES (AUTO) 0.8 10^3/uL (0.5-4.7); ABSOLUTE MONOCYTES (AUTO) 0.7 10^3/uL (0.1-1.4); ABSOLUTE NEUT (AUTO) 11.4 10^3/uL (1.7-8.2); BASOPHILS % (AUTO) 0.2 % (0-2); EOSINOPHILS % (AUTO) 0.1 % (0-6); HEMATOCRIT 29.9 % (36.0-47.0); MEAN CORPUSCULAR HEMOGLOBIN 29.6 pg (27.0-33.4); MEAN CORPUSCULAR HGB CONC 33.3 g/dL (32.0-36.0); MEAN CORPUSCULAR VOLUME 89 fl (80-97); MONOCYTES % (AUTO) 5.2 % (3-13); PLATELET COUNT 177 10^3/uL (150-450); RED BLOOD COUNT 3.37 10^6/uL (3.72-5.28); RED CELL DISTRIBUTION WIDTH 15.6 % (11.5-14.0); SEGMENTED NEUTROPHILS % (AUTO) 88.5 % (42-78); TOTAL CELLS COUNTED % (AUTO) 100 %; WHITE BLOOD COUNT 12.9 10^3/uL (4.0-10.5)
[2018-06-07 12:58] LABS: BLOOD UREA NITROGEN 39 mg/dL (7-20); CALCIUM 8.9 mg/dL (8.4-10.2); GLUCOSE 113 mg/dL (75-110); POTASSIUM 4.9 mmol/L (3.6-5.0)
[2018-06-07 13:03] LABS: CARBON DIOXIDE 35 mmol/L (22-30); CHLORIDE 100 mmol/L (98-107); SODIUM 137.4 mmol/L (137-145)
[2018-06-07 13:07] LABS: ANION GAP 2 (5-19)
--- NOTE | 2018-06-07 13:54 | RADIOLOGY REPORT (SQ) ---
EXAM DESCRIPTION: CHEST SINGLE VIEW COMPLETED DATE/TIME: 06/07/2018 12:19 pm REASON FOR STUDY: reassess pleural eff, pna COMPARISON: 06/04/2018. EXAM PARAMETERS: NUMBER OF VIEWS: One view. TECHNIQUE: Single frontal radiographic view of the chest acquired. RADIATION DOSE: NA LIMITATIONS: None. FINDINGS: LUNGS AND PLEURA: No acute infiltrates or effusions. Bilateral pleural thickening or effu sions. MEDIASTINUM AND HILAR STRUCTURES: No masses. Contour normal. HEART AND VASCULAR STRUCTURES: Heart normal in size. Normal vasculature. Mitral annulus calcificati on. BONES: Dorsal spondylosis. HARDWARE: None in the chest. OTHER: No other significant finding. IMPRESSION: Bilateral pleural fusions. Otherwise, no acute disease TECHNICAL DOCUMENTATION: JOB ID: [id number] [employer]- All Rights Reserved Reading location - IP/workstation name: [email or web address]
--- NOTE | 2018-06-07 17:34 | PDOC PROGRESS REPORT ---
Subjective Progress Note for:: 06/07/18 Subjective:: This is a 82 year old female assisted living resident with past medical history of CVA and dementia who initially presented with diarrhea was admitted for colitis and bilateral pneumonia. She was started on Rocephin and Flagyl. Chest CT done on 05/24 shows extensive right sided consolidation, multifocal PNA and possible endobronchial plugging. Results discussed with patient and family including son/DPOA on bedside. She is a full code. She was initially started on broad spectrum IV antibiotics. She completed 8 days of antibiotics and these were discontinued by preceding hospitalist. 06/02/18: Repeat chest CT shows worsening findings and increasing pleural effusion with persistent consolidation. Discussed with pulmonology. Restarted antibiotics. 06/03/18: She is comfortable at rest and is saturating well on 2L via NC. Discussed with pulm and recommend thoracentesis prior to possible bronchoscopy. Results and plan of care discussed with patient and son/DPOA, Sriram including risk pneumothorax with thoracentesis and both want to proceed. 06/04/18: She just had thoracentesis and says it did improve her breathing. She does complain of mild pain on the needle insertion site. 06/05/18: No worsening of SOB. Pleural fluid analysis is consistent with transudative fluid. Discussed with Dr. Weller over the phone who is planning for possible bronch on Friday or Friday. 06/06/18: No acute event overnight. She says she still has SOB which is a little better after thoracentesis and has not worsened from yesterday. Denies chest pain. No fever or chills. 06/07/18: No acute event overnight. She had a few loose, nonbloody stools this morning. C diff testing was negative. She says her SOB is not worsening. Denies chest pain. Dr. Weller is planning to proceed with bronchoscopy on Friday. Reason For Visit: PNEUMONIA Physical Exam Vital Signs: Temp Pulse Resp BP Pulse Ox 98.0 F 66 18 161/37 H 98 06/07/18 15:25 06/07/18 15:25 06/07/18 15:25 06/07/18 15:25 06/07/18 15:25 Intake & Output 06/06/18 06/07/18 06/08/18 06:59 06:59 06:59 Intake Total 750 520 474 Balance 750 520 474 Weight 126 lb 5.198 oz 126 lb 1.671 oz General appearance: PRESENT: no acute distress, well-developed, well-nourished Head exam: PRESENT: atraumatic, normocephalic Eye exam: PRESENT: conjunctiva pink, EOMI, PERRLA. ABSENT: scleral icterus Ear exam: PRESENT: normal external ear exam Mouth exam: PRESENT: moist, tongue midline Neck exam: ABSENT: carotid bruit, JVD, lymphadenopathy, thyromegaly Respiratory exam: PRESENT: rales - right base, rhonchi. ABSENT: wheezes Pulses: PRESENT: normal dorsalis pedis pul GI/Abdominal exam: PRESENT: normal bowel sounds, soft. ABSENT: distended, guarding, mass, organolmegaly, rebound, tenderness Rectal exam: PRESENT: deferred Neurological exam: PRESENT: alert, awake, oriented to person, oriented to place, oriented to time Results Laboratory Results: 06/07/18 12:33 06/07/18 12:33 06/07/18 06/07/18 12:33 12:33 WBC 12.9 H RBC 3.37 L Hgb 10.0 L Hct 29.9 L MCV 89 MCH 29.6 MCHC 33.3 RDW 15.6 H Plt Count 177 Seg Neutrophils % 88.5 H Lymphocytes % 6.0 L Monocytes % 5.2 Eosinophils % 0.1 Basophils % 0.2 Absolute Neutrophils 11.4 H Absolute Lymphocytes 0.8 Absolute Monocytes 0.7 Absolute Eosinophils 0.0 Absolute Basophils 0.0 Sodium 137.4 Potassium 4.9 Chloride 100 Carbon Dioxide 35 H Anion Gap 2 L BUN 39 H Creatinine 1.10 Est GFR ( Amer) 57 L Est GFR (Non-Af Amer) 47 L Glucose 113 H Calcium 8.9 05/22/18 05/22/18 05/28/18 21:42 21:42 11:00 Creatine Kinase 960 H 25 L CK-MB (CK-2) 6.47 H Troponin I 0.022 05/28/18 05/28/18 05/28/18 11:00 18:34 18:34 Creatine Kinase 28 L CK-MB (CK-2) 0.85 0.85 Troponin I < 0.012 < 0.012 05/29/18 05/29/18 00:20 00:20 Creatine Kinase 23 L CK-MB (CK-2) 0.82 Troponin I < 0.012 Impressions: Abdomen Ultrasound 05/22/18 21:25 IMPRESSION: The gallbladder could not be visualized, due to body habitus and inability to position patient correctly. The common bile duct is normal. 7 cm cyst in the right kidney. Abdomen/Pelvis CT 05/22/18 22:54 IMPRESSION: Fluid within the proximal two thirds of the gallbladder which could be secondary to an underlying diarrheal process. Possible developing bibasilar pneumonia. Chest CT 06/02/18 13:50 IMPRESSION: BILATERAL PLEURAL EFFUSIONS, RIGHT GREATER THAN LEFT, HAVE INCREASED IN SIZE. PATCHY GROUND-GLASS AIRSPACE DISEASE IN THE UPPER LOBES HAS INCREASED SINCE THE PRIOR STUDY. CONSOLIDATION/COMPRESSIVE ATELECTASIS IN THE RIGHT LOWER LOBE. Thoracentesis Ultrasound 06/04/18 11:16 IMPRESSION: SUCCESSFUL THORACENTESIS USING ULTRASOUND GUIDANCE. Chest X-Ray 06/07/18 11:39 IMPRESSION: Bilateral pleural fusions. Otherwise, no acute disease Assessment & Plan - Diagnosis (1) Acute respiratory failure with hypoxia Is this a current diagnosis for this admission?: Yes Plan: Secondary to multifocal pneumonia with consolidation, compressive atelectasis (?endobronchial plugging). Currently saturating well on 2L via NC. (2) Pleural effusion Is this a current diagnosis for this admission?: Yes Plan: S/P thoracentesis on the right 06/04/18 with 600 cc drained. 06/04/18: Patient had thoracentesis and had 600 cc drained. Pleural fluid analysis is consistent with transudative effusion which may be from compressive atelectasis. Noted echo is unremarkable aside from mild/grade 1 diastolic dysfunction. As mentioned, plan for bronch on Friday by pulm. (3) HCAP (healthcare-associated pneumonia) Is this a current diagnosis for this admission?: Yes Plan: As per number #1. Low threshold for ICU transfer if patient develops desaturation or worsening SOB. Chest CT ordered and shows multifocal pneumonia with extensive right lung consolidation and possible endobronchial plugging. Patient did have recent hospitalization. Broaden antibiotic coverage and switched to vancomycin and Zosyn. Also on azithromycin. Will consult pulmonology for further recommendations. Continue breathing treatments. Will add mucomyst as well. Chest CT done on 05/24 shows extensive right sided consolidation, multifocal PNA and possible endobronchial plugging. Results discussed with patient and family including son/DPOA on bedside. She is a full code. She was initially started on broad spectrum IV antibiotics. She completed 8 days of antibiotics and these were discontinued by preceding hospitalist on 05/31/18. 06/02/18: Repeat chest CT shows worsening findings and increasing pleural effusion with persistent consolidation. Discussed with pulmonology. Restarted antibiotics. Persistent effusion despite IV antibiotics raises concern for post obstructive pneumonia. Continue antibiotics for now. Continue CPT and mucomyst. (4) Colitis Is this a current diagnosis for this admission?: Yes Plan: Resolved. No recurrence of diarrhea or abdominal pain. Completed Flagyl. - Time Time Spent with patient: 25-34 minutes
[2018-06-07] MEDS: BIMATOPROST 0.01% OPH SOLN 2.5 ML/BOTTLE OS SCH (22:31)
[2018-06-08] MEDS: HYDRALAZINE HCL 25 MG TABLET PO SCH ×2 (05:59→14:02)
[2018-06-08] MEDS: CHLORPHENIRAMINE MALEATE 4 MG TABLET PO SCH ×3 (06:16→16:31)
[2018-06-08] MEDS: LEVOTHYROXINE SODIUM 0.088 MG TABLET PO SCH (06:17)
[2018-06-08] MEDS: HEPARIN SOD (PORCINE) 5,000 UNIT/ML 1 ML SYRINGE SUBCUT SCH ×2 (06:18→13:55)
[2018-06-08] MEDS: ACETYLCYSTEINE 10% NEB 400 MG/4 ML VIAL NEB SCH ×2 (07:53→20:09)
[2018-06-08] MEDS: LEVALBUTEROL HCL NEB 0.63 MG/3 ML AMPUL NEB PRN (07:53)
[2018-06-08] MEDS: SENNOSIDES/DOCUSATE 8.6-50 MG 1 EACH TABLET PO SCH (09:44)
[2018-06-08] MEDS: PREDNISONE 10 MG TABLET PO SCH ×2 (09:46→16:31)
[2018-06-08] MEDS: ASPIRIN 81 MG TABLET, CHEWABLE PO SCH (09:46)
[2018-06-08] MEDS: AMLODIPINE BESYLATE 5 MG TABLET PO SCH ×2 (09:47→22:26)
[2018-06-08] MEDS: SERTRALINE HCL 50 MG TABLET PO SCH (09:47)
[2018-06-08] MEDS: FLUTICASONE NASAL SPRAY 50 MCG/SPRY 120 SPRAY/16 GM NASL SCH ×2 (09:47→22:27)
[2018-06-08] MEDS: LISINOPRIL 10 MG TABLET PO SCH (09:47)
[2018-06-08] MEDS: CALCIUM CARBONATE 250 MG/VITAMIN D3 125 UNIT TABLET PO SCH (09:47)
--- NOTE | 2018-06-08 13:57 | RADIOLOGY REPORT (SQ) ---
EXAM DESCRIPTION: CT HEAD WITHOUT COMPLETED DATE/TIME: 06/08/2018 1:48 pm REASON FOR STUDY: ams COMPARISON: 04/07/2018 TECHNIQUE: Axial images acquired through the brain without intravenous contrast. Images reviewed wi th bone, brain and subdural windows. Additional sagittal and coronal reconstructions were generated. Images stored on PACS. All CT scanners at this facility use dose modulation, iterative reconstruction, and/or weight based d osing when appropriate to reduce radiation dose to as low as reasonably achievable (ALARA). [facility]: Dose Right [facility]: CareDose [facility]: Dose Right [facility]: Teradose 4D [facility]: [employer] RADIATION DOSE: CT Rad equipment meets quality standard of care and radiation dose reduction techniq ues were employed. CTDIvol: 48.5 mGy. DLP: 855 mGy-cm. mGy. LIMITATIONS: None. FINDINGS: VENTRICLES: Prominent ventricles secondary to involutional atrophy. CEREBRUM: No masses. No hemorrhage. No midline shift. No evidence for acute infarction. Normal gra y/white matter differentiation. No areas of low density in the white matter. CEREBELLUM: No masses. No hemorrhage. No alteration of density. No evidence for acute infarction. EXTRAAXIAL SPACES: No fluid collections. No masses. ORBITS AND GLOBE: No intra- or extraconal masses. Normal contour of globe without masses. CALVARIUM: No fracture. PARANASAL SINUSES: No fluid or mucosal thickening. SOFT TISSUES: No mass or hematoma. OTHER: No other significant finding. IMPRESSION: Involutional changes of aging with no acute intracranial imaging findings. EVIDENCE OF ACUTE STROKE: NO. COMMENT: Quality ID # [id number]: Final reports with documentation of one or more dose reduction techniques (e.g., Automated exposure control, adjustment of the mA and/or kV according to patient size, use of iterative reconstruction technique) TECHNICAL DOCUMENTATION: JOB ID: [id number] [employer]- All Rights Reserved Reading location - IP/workstation name: [email or web address]
--- NOTE | 2018-06-08 16:10 | PDOC PROGRESS REPORT ---
Subjective Progress Note for:: 06/08/18 Subjective:: This is a 82 year old female assisted living resident with past medical history of CVA and dementia who initially presented with diarrhea was admitted for colitis and bilateral pneumonia. She was started on Rocephin and Flagyl. Chest CT done on 05/24 shows extensive right sided consolidation, multifocal PNA and possible endobronchial plugging. Results discussed with patient and family including son/DPOA on bedside. She is a full code. She was initially started on broad spectrum IV antibiotics. She completed 8 days of antibiotics and these were discontinued by preceding hospitalist. 06/02/18: Repeat chest CT shows worsening findings and increasing pleural effusion with persistent consolidation. Discussed with pulmonology. Restarted antibiotics. 06/03/18: She is comfortable at rest and is saturating well on 2L via NC. Discussed with pulm and recommend thoracentesis prior to possible bronchoscopy. Results and plan of care discussed with patient and son/DPOA, Sriram including risk pneumothorax with thoracentesis and both want to proceed. 06/04/18: She just had thoracentesis and says it did improve her breathing. She does complain of mild pain on the needle insertion site. 06/05/18: No worsening of SOB. Pleural fluid analysis is consistent with transudative fluid. Discussed with Dr. Weller over the phone who is planning for possible bronch on Friday or Friday. 06/06/18: No acute event overnight. She says she still has SOB which is a little better after thoracentesis and has not worsened from yesterday. Denies chest pain. No fever or chills. 06/07/18: No acute event overnight. She had a few loose, nonbloody stools this morning. C diff testing was negative. She says her SOB is not worsening. Denies chest pain. Dr. Weller is planning to proceed with bronchoscopy on Friday. 06/08/18: No acute event overnight. Patient says her breathing has not worsened from yesterday. Discussed in length with Dr. Weller today. As her chest x-ray does show significant improvement, bronchoscopy will be deferred. Pleural fluid cytology still pending. Appears patient has significantly responded well to aggressive pulmonary toilet including CPT and mucomist and antibiotics. Will repeat chest x-ray tomorrow. If she continues to improve, she can be discharged to [facility] in the next 24-48 hrs. Patient and son/DPOA (Sriram) also updated about this. Reason For Visit: PNEUMONIA Physical Exam Vital Signs: Temp Pulse Resp BP Pulse Ox 98.2 F 52 L 16 154/62 H 100 06/08/18 08:09 06/08/18 08:09 06/08/18 08:09 06/08/18 08:48 06/08/18 08:09 Intake & Output 06/07/18 06/08/18 06/09/18 06:59 06:59 06:59 Intake Total 520 1029 Balance 520 1029 Weight 126 lb 1.671 oz 130 lb 8.218 oz General appearance: PRESENT: no acute distress, well-developed, well-nourished Head exam: PRESENT: atraumatic, normocephalic Eye exam: PRESENT: conjunctiva pink, EOMI, PERRLA. ABSENT: scleral icterus Ear exam: PRESENT: normal external ear exam Mouth exam: PRESENT: moist, tongue midline Respiratory exam: PRESENT: rales - on the bases, improved from yesterday, rhonchi. ABSENT: wheezes Cardiovascular exam: PRESENT: RRR. ABSENT: diastolic murmur, rubs, systolic murmur Pulses: PRESENT: normal dorsalis pedis pul GI/Abdominal exam: PRESENT: normal bowel sounds, soft. ABSENT: distended, guarding, mass, organolmegaly, rebound, tenderness Rectal exam: PRESENT: deferred Neurological exam: PRESENT: alert, awake, oriented to person, oriented to place, CN II-XII grossly intact. ABSENT: motor sensory deficit Results Laboratory Results: 06/07/18 12:33 06/07/18 12:33 06/04/18 10:36 Pleural Fluid Gram Stain - Final 06/04/18 10:36 Pleural Fluid Body Fluid Culture - Final NO AEROBIC OR ANAEROBIC ORGANISMS RECOVERED 05/22/18 05/22/18 05/28/18 21:42 21:42 11:00 Creatine Kinase 960 H 25 L CK-MB (CK-2) 6.47 H Troponin I 0.022 05/28/18 05/28/18 05/28/18 11:00 18:34 18:34 Creatine Kinase 28 L CK-MB (CK-2) 0.85 0.85 Troponin I < 0.012 < 0.012 05/29/18 05/29/18 00:20 00:20 Creatine Kinase 23 L CK-MB (CK-2) 0.82 Troponin I < 0.012 Impressions: Abdomen Ultrasound 05/22/18 21:25 IMPRESSION: The gallbladder could not be visualized, due to body habitus and inability to position patient correctly. The common bile duct is normal. 7 cm cyst in the right kidney. Abdomen/Pelvis CT 05/22/18 22:54 IMPRESSION: Fluid within the proximal two thirds of the gallbladder which could be secondary to an underlying diarrheal process. Possible developing bibasilar pneumonia. Chest CT 06/02/18 13:50 IMPRESSION: BILATERAL PLEURAL EFFUSIONS, RIGHT GREATER THAN LEFT, HAVE INCREASED IN SIZE. PATCHY GROUND-GLASS AIRSPACE DISEASE IN THE UPPER LOBES HAS INCREASED SINCE THE PRIOR STUDY. CONSOLIDATION/COMPRESSIVE ATELECTASIS IN THE RIGHT LOWER LOBE. Thoracentesis Ultrasound 06/04/18 11:16 IMPRESSION: SUCCESSFUL THORACENTESIS USING ULTRASOUND GUIDANCE. Chest X-Ray 06/07/18 11:39 IMPRESSION: Bilateral pleural fusions. Otherwise, no acute disease Head CT 06/08/18 11:16 IMPRESSION: Involutional changes of aging with no acute intracranial imaging findings. EVIDENCE OF ACUTE STROKE: NO. Assessment & Plan - Diagnosis (1) Acute respiratory failure with hypoxia Is this a current diagnosis for this admission?: Yes Plan: Secondary to multifocal pneumonia with consolidation, compressive atelectasis (?endobronchial plugging). Currently saturating well on 2L via NC. Discussed in length with Dr. Weller today. As her chest x-ray does show sig nificant improvement, bronchoscopy will be deferred. Appears patient has significantly responded well to aggressive pulmonary toilet including CPT and mucomist and antibiotics. Will repeat chest x-ray tomorrow. If she continues to improve, she can be discharged to [facility] in the next 24-48 hrs. Patient and son/DPOA (Sriram) also updated about this. (2) Pleural effusion Is this a current diagnosis for this admission?: Yes Plan: S/P thoracentesis on the right 06/04/18 with 600 cc drained. 06/04/18: Patient had thoracentesis and had 600 cc drained. Pleural fluid analysis is consistent with transudative effusion which may be fr om compressive atelectasis. Noted echo is unremarkable aside from mild/grade 1 diastolic dysfunction. Pleural fluid cytology still pending. (3) HCAP (healthcare-associated pneumonia) Is this a current diagnosis for this admission?: Yes Plan: As per number #1. Low threshold for ICU transfer if patient develops desaturation or worsening SOB. Chest CT ordered and shows multifocal pneumonia with extensive right lung consolidation and possible endobronchial plugging. Patient did have recent hospitalization. Broaden antibiotic coverage and switched to vancomycin and Zosyn. Also on azithromycin. Will consult pulmonology for further recommendations. Continue breathing treatments. Will add mucomyst as well. Chest CT done on 05/24 shows extensive right sided consolidation, multifocal PNA and possible endobronchial plugging. Results discussed with patient and family including son/DPOA on bedside. She is a full code. She was initially started on broad spectrum IV antibiotics. She completed 8 days of antibiotics and these were discontinued by preceding hospitalist on 05/31/18. 06/02/18: Repeat chest CT shows worsening findings and increasing pleural effusion with persistent consolidation. Discussed with pulmonology. Restarted antibiotics. Persistent effusion despite IV antibiotics raises concern for post obstructive pneumonia. Continue antibiotics for now. Continue CPT and mucomyst. (4) Colitis Is this a current diagnosis for this admission?: Yes Plan: Resolved. No recurrence of diarrhea or abdominal pain. Completed Flagyl. - Time Time Spent with patient: 25-34 minutes
[2018-06-08] MEDS: LEVOFLOXACIN 750 MG TABLET PO SCH (16:31)
[2018-06-08] MEDS: BIMATOPROST 0.01% OPH SOLN 2.5 ML/BOTTLE OS SCH (22:26)
[2018-06-09] MEDS: CHLORPHENIRAMINE MALEATE 4 MG TABLET PO SCH ×5 (02:34→23:01)
[2018-06-09] MEDS: LEVOTHYROXINE SODIUM 0.088 MG TABLET PO SCH (05:35)
[2018-06-09] MEDS: ACETYLCYSTEINE 10% NEB 400 MG/4 ML VIAL NEB SCH ×2 (08:11→21:35)
[2018-06-09] MEDS: LEVALBUTEROL HCL NEB 0.63 MG/3 ML AMPUL NEB PRN ×2 (08:11→19:38)
--- NOTE | 2018-06-09 09:22 | RADIOLOGY REPORT (SQ) ---
EXAM DESCRIPTION: CHEST SINGLE VIEW COMPLETED DATE/TIME: 06/09/2018 9:11 am REASON FOR STUDY: reassess pleural eff COMPARISON: 06/07/2018. EXAM PARAMETERS: NUMBER OF VIEWS: One view. TECHNIQUE: Single frontal radiographic view of the chest acquired. RADIATION DOSE: NA LIMITATIONS: None. FINDINGS: LUNGS AND PLEURA: Small left pleural effusion, unchanged. Mild interstitial prominence th roughout both lungs. MEDIASTINUM AND HILAR STRUCTURES: No masses. Contour normal. HEART AND VASCULAR STRUCTURES: Heart normal in size. Normal vasculature. BONES: No acute findings. Degenerative changes in the spine. Old deformity of the left humeral head . HARDWARE: None in the chest. OTHER: No other significant finding. IMPRESSION: STABLE APPEARANCE OF THE CHEST. SMALL LEFT PLEURAL EFFUSION. TECHNICAL DOCUMENTATION: JOB ID: [id number] [employer]- All Rights Reserved Reading location - IP/workstation name: [email or web address]
[2018-06-09] MEDS: AMLODIPINE BESYLATE 5 MG TABLET PO SCH ×2 (09:51→22:43)
[2018-06-09] MEDS: LISINOPRIL 10 MG TABLET PO SCH (09:52)
[2018-06-09] MEDS: ASPIRIN 81 MG TABLET, CHEWABLE PO SCH (09:52)
[2018-06-09] MEDS: CALCIUM CARBONATE 250 MG/VITAMIN D3 125 UNIT TABLET PO SCH (09:52)
[2018-06-09] MEDS: PREDNISONE 10 MG TABLET PO SCH ×2 (09:52→18:46)
[2018-06-09] MEDS: SERTRALINE HCL 50 MG TABLET PO SCH (09:53)
[2018-06-09] MEDS: SENNOSIDES/DOCUSATE 8.6-50 MG 1 EACH TABLET PO SCH (09:53)
[2018-06-09] MEDS: FLUTICASONE NASAL SPRAY 50 MCG/SPRY 120 SPRAY/16 GM NASL SCH ×2 (09:54→22:43)
[2018-06-09] MEDS: HEPARIN SOD (PORCINE) 5,000 UNIT/ML 1 ML SYRINGE SUBCUT SCH ×2 (13:19→22:44)
[2018-06-09] MEDS: NYSTATIN 500000 UNIT/5 ML UDCUP PO SCH ×3 (15:14→22:44)
--- NOTE | 2018-06-09 18:12 | PDOC PROGRESS REPORT ---
Subjective Progress Note for:: 06/09/18 Subjective:: -This is a 82 year old female assisted living resident with past medical history of CVA and dementia who initially presented with diarrhea was admitted for colitis and bilateral pneumonia. She was started on Rocephin and Flagyl. Chest CT done yesterday 05/24 shows extensive right sided consolidation, multifocal PNA and possible endobronchial plugging. Results discussed with patient and family including son/DPOA on bedside. She is a full code. No acute event overnight. This morning, she is saturating well on 2L of O2 via NC. She says she still has SOB but this has not worsened from yesterday. She is not tachypneic. She continues to have minimally productive cough. Denies chest pain. 05/26/2018-no acute events in the last 24 hours. Afebrile. Pulse ox is 96% on 2 L. Patient is on Rocephin and Flagyl for colitis/bilateral pneumonia. 05/27/2018-no acute events in the last 24 hours. Physical therapy try to work with the patient but because of the increased weakness and gait instability the recommendation is to put the patient on bedrest. To the family about moving her from assisted living to acute rehab for a short physical therapy and they agreed to proceed with the new plan. 05/28/2018-The nurse notified me around 11:00 that patient has a small brief episode of a cardiac arrhythmia. Patient is asymptomatic at the time. The rhythm strips gross cardiac arrhythmia less than 6 seconds. I am going to order 12-lead EKG. given to see the patient talk to the patient patient denies any chest pains denies any shortness of breath. 05/29/2018-patient has not had 3 episodes of cardiac arrhythmia few seconds of V. tach patient is asymptomatic. Cardiology consult was requested and Dr. Bustillo looked at the strip and recommended a change from DuoNeb to Xopenex nebulizations. 05/30/2018-patient is comfortably in the bed no acute events in the last 24 hours. She is afebrile. Waiting for placement. 05/31/2018-no acute events in the last 24 hours. Patient waiting for placement. According to the patient's sister there is no bed is available in [facility] now the [facility]. 06/01/2018-no acute events in the last 24 hours. Patient waiting for placement. Patient is afebrile. Blood pressures are running high this morning. I am going to adjust the blood pressure medications. 06/09/2018-no acute events in the last 24 hours patient is afebrile. She had a pleural tap that was done waiting for the culture reports. Patient pulse ox is 92-94% on room air. Reason For Visit: PNEUMONIA Physical Exam Vital Signs: Temp Pulse Resp BP Pulse Ox 98.4 F 61 17 172/57 H 92 06/09/18 16:00 06/09/18 16:00 06/09/18 16:00 06/09/18 16:00 06/09/18 17:15 Intake & Output 06/08/18 06/09/18 06/10/18 06:59 06:59 06:59 Intake Total 1029 860 125 Balance 1029 860 125 Weight 59.2 kg 59.2 kg General appearance: PRESENT: no acute distress Head exam: PRESENT: atraumatic Eye exam: PRESENT: PERRLA Neck exam: ABSENT: carotid bruit, JVD, lymphadenopathy, thyromegaly Respiratory exam: PRESENT: decreased breath sounds Cardiovascular exam: PRESENT: tachycardia GI/Abdominal exam: PRESENT: normal bowel sounds, soft. ABSENT: distended, guarding, mass, organolmegaly, rebound, tenderness Neurological exam: PRESENT: alert, awake, oriented to person, oriented to place, oriented to time, oriented to situation, CN II-XII grossly intact. ABSENT: motor sensory deficit Psychiatric exam: PRESENT: appropriate affect, normal mood. ABSENT: homicidal ideation, suicidal ideation Results Laboratory Results: 06/07/18 12:33 06/07/18 12:33 05/22/18 05/22/18 05/28/18 21:42 21:42 11:00 Creatine Kinase 960 H 25 L CK-MB (CK-2) 6.47 H Troponin I 0.022 05/28/18 05/28/18 05/28/18 11:00 18:34 18:34 Creatine Kinase 28 L CK-MB (CK-2) 0.85 0.85 Troponin I < 0.012 < 0.012 05/29/18 05/29/18 00:20 00:20 Creatine Kinase 23 L CK-MB (CK-2) 0.82 Troponin I < 0.012 Impressions: Abdomen Ultrasound 05/22/18 21:25 IMPRESSION: The gallbladder could not be visualized, due to body habitus and inability to position patient correctly. The common bile duct is normal. 7 cm cyst in the right kidney. Abdomen/Pelvis CT 05/22/18 22:54 IMPRESSION: Fluid within the proximal two thirds of the gallbladder which could be secondary to an underlying diarrheal process. Possible developing bibasilar pneumonia. Chest CT 06/02/18 13:50 IMPRESSION: BILATERAL PLEURAL EFFUSIONS, RIGHT GREATER THAN LEFT, HAVE INCREASED IN SIZE. PATCHY GROUND-GLASS AIRSPACE DISEASE IN THE UPPER LOBES HAS INCREASED SINCE THE PRIOR STUDY. CONSOLIDATION/COMPRESSIVE ATELECTASIS IN THE RIGHT LOWER LOBE. Thoracentesis Ultrasound 06/04/18 11:16 IMPRESSION: SUCCESSFUL THORACENTESIS USING ULTRASOUND GUIDANCE. Head CT 06/08/18 11:16 IMPRESSION: Involutional changes of aging with no acute intracranial imaging findings. EVIDENCE OF ACUTE STROKE: NO. Chest X-Ray 06/09/18 06:00 IMPRESSION: STABLE APPEARANCE OF THE CHEST. SMALL LEFT PLEURAL EFFUSION. Assessment & Plan - Diagnosis (1) Acute respiratory failure with hypoxia Is this a current diagnosis for this admission?: Yes Plan: Secondary to multifocal pneumonia. Currently saturating well on 2L via NC but she does report SOB. BIPAP to alternate with NC, 4 hrs on/4 hrs off. 05/26/2018-acute respiratory failure with hypoxia secondary to multifocal pneumonia. Patient is on Rocephin. Today's pulse ox is 96% on 2 L. 05/27/2018-patient is admitted with acute respiratory failure with hypoxia secondary to multifocal pneumonia patient is on IV zosyn patient is comfortably in the bed on 2 L oxygen. T-max is 97.9. To continue the present management .cultures are negative so far. 05/28/2018-patient has multifocal pneumonia and on IV zosyn . Pulse ox is 95% on 2 L. Denies any shortness of breath or chest pains. These cultures are negative so far. T-max is 98.3. 05/29/2018-patient has multifocal pneumonia she is on IV zosyn pulse ox is and I am going to repeat the chest x-ray today 98% 2 L. 05/30/20180000-[id number] chest x-ray still shows right-sided pneumonia. Patient is on Zosyn and azithromycin. Plan is to continue the present management. 05/31/2018 repeat chest x-ray on 05/30/2018 shows right-sided pneumonia patient is on Zosyn and azithromycin she completed 7 days of course of antibiotics I am going to stop the antibiotics today she is afebrile for the last 3-4 days. Patient's pulse ox is 94% on 2 L. 06/01/2018-patient was admitted with right-sided pneumonia. She was started on Zosyn and Zithromax. Work came back negative. Antibiotics were stopped. She is afebrile. Her T-max is 97.7. Since pulse ox is 97% on 1 L. 06/09/2017-patient's pulse ox is 90-94% on room air. Repeat chest x-ray shows very small left pleural effusion. She had recently had a pleural tap was done more than 700 cc of fluid was removed waiting for the culture reports. Patient still on levofloxacin. We got in touch with Dr. Weller this morning and he does not have to do to do bronchoscopy because patient is doing better chest x- ray shows significant improvement. He is on a scheduled nebulizations and she is getting CPT. (2) Colitis Is this a current diagnosis for this admission?: Yes Plan: Resolved. No recurrence of diarrhea or abdominal pain. Flagyl DCed. Switched antibiotics as mentioned above. 05/26/2018 colitis was resolved. Flagyl was discontinued. Presently on azithromycin and Zosyn. 05/27/2018 colitis was resolved Flagyl was discontinued 2 days ago. 05/28/2018 patient denies any abdominal pain diarrhea. Colitis is resolved. 05/29/2018. No complaints of loose stools or diarrhea. No abdominal pains. Colitis was resolved. 05/31/2018 patient has no more episodes of loose stools. Initially she was on Flagyl for colitis. We discontinued Flagyl few days ago she does not have any problem with bowel movements anymore. 06/01/2018 colitis was resolved. 06/19/2018-patient is complaining of nonspecific abdominal pain no diarrhea. She has chronic history of colitis. During the hospital stay his CD4 checked which was negative. (3) HCAP (healthcare-associated pneumonia) Is this a current diagnosis for this admission?: Yes Plan: As per number #1. Low threshold for ICU transfer if patient develops desaturation or worsening SOB. Chest CT ordered and shows multifocal pneumonia with extensive right lung consolidation and possible endobronchial plugging. Patient did have recent hospitalization. Broaden antibiotic coverage and switched to vancomycin and Zosyn. Also on azithromycin. Will consult pulmonology for further recommendations. Continue breathing treatments. Will add mucomyst as well. 05/25/18. Hold vancomycin for now as creatinine has slightly trended up. Continue Zosyn and azithromycin. Discussed with Dr. Weller over phone. 05/26/2018 patient failed outpatient antibiotic therapy for pneumonia. CT scan shows multifocal pneumonia with extensive right lung consolidation with possible endobronchial plugging. And history of hospitalization. #1 Zosyn and azithromycin. pulmonary on board. is on board. 05/27 patient came from assisted living to the hospital. CT scan shows multifocal pneumonia with extensive right lung consolidation with possible endobronchial plugging. Patient is on Zosyn and azithromycin. Blood cultures are negative so far. 05/28/2018-on Zosyn and azithromycin. The blood cultures are negative so far. CT scan shows multifocal pneumonia with right lung consolidation. Planning to continue the present management. 05/29/2018-healthcare acquired pneumonia on Zosyn and azithromycin. Cultures ar e negative. CT scan shows multifocal pneumonia with right lung consolidation. She is getting CPT treatment. Plan to repeat the chest x-ray today. 05/30/2018 patient is afebrile vitals are stable plan is to continue Zosyn and azithromycin. 05/31/2018-patient has health care associated pneumonia healthcare associated pneumonia rather she was treated with Zosyn and azithromycin she completed 8 days of antibiotics and I am going to stop the antibiotics today. 06/01/2018 patient has healthcare associated pneumonia she was treated with Zosyn and azithromycin she completed the course of antibiotic therapy she is off the antibiotics since yesterday. 06/09/2018-patient was initially admitted for right-sided pneumonia she got total of 7 days of antibiotic therapy and antibiotics were discontinued because patient is afebrile but the follow-up CT shows extensive right lung consolidation possible endocardial plugging and with left pleural effusion status post plueral tap was done more than 700 cc of fluid was removed repeat chest x-ray shows no evidence of pneumonia very minimal left pleural effusion (4) Dementia Is this a current diagnosis for this admission?: Yes Plan: 06/01/2018-patient has history of dementia. She has difficulty in memory and communication. She is also problems with ambulation. Physical therapy consult was done and the recommendation is patient is to be bedbound and can come out of the bed with assistance only. In my opinion patient need to go to acute rehab and she may have to stay there less than 30 days to recover. 06/09/2018-plan is to continue the present management. - Time Time Spent with patient: 15-24 minutes Medications reviewed and adjusted accordingly: Yes Anticipated discharge: SNF
[2018-06-09] MEDS: BIMATOPROST 0.01% OPH SOLN 2.5 ML/BOTTLE OS SCH (22:44)
[2018-06-10 03:59] LABS: ABSOLUTE LYMPHOCYTES (AUTO) 0.6 10^3/uL (0.5-4.7); ABSOLUTE MONOCYTES (AUTO) 0.5 10^3/uL (0.1-1.4); ABSOLUTE NEUT (AUTO) 10.7 10^3/uL (1.7-8.2); BASOPHILS % (AUTO) 0.2 % (0-2); EOSINOPHILS % (AUTO) 0.1 % (0-6); HEMATOCRIT 32.7 % (36.0-47.0); HEMOGLOBIN 10.9 g/dL (12.0-15.5); LYMPHOCYTES % (AUTO) 5.2 % (13-45); MEAN CORPUSCULAR HEMOGLOBIN 29.4 pg (27.0-33.4); MEAN CORPUSCULAR HGB CONC 33.3 g/dL (32.0-36.0); MEAN CORPUSCULAR VOLUME 88 fl (80-97); MONOCYTES % (AUTO) 4.4 % (3-13); PLATELET COUNT 173 10^3/uL (150-450); RED BLOOD COUNT 3.71 10^6/uL (3.72-5.28); RED CELL DISTRIBUTION WIDTH 16.5 % (11.5-14.0); SEGMENTED NEUTROPHILS % (AUTO) 90.1 % (42-78); TOTAL CELLS COUNTED % (AUTO) 100 %; WHITE BLOOD COUNT 11.8 10^3/uL (4.0-10.5)
[2018-06-10] MEDS: LEVOTHYROXINE SODIUM 0.088 MG TABLET PO SCH (05:47)
[2018-06-10] MEDS: HEPARIN SOD (PORCINE) 5,000 UNIT/ML 1 ML SYRINGE SUBCUT SCH ×3 (05:47→22:04)
[2018-06-10] MEDS: CHLORPHENIRAMINE MALEATE 4 MG TABLET PO SCH ×3 (05:47→19:05)
[2018-06-10] MEDS: ACETYLCYSTEINE 10% NEB 400 MG/4 ML VIAL NEB SCH ×2 (07:49→19:42)
[2018-06-10] MEDS: LEVALBUTEROL HCL NEB 0.63 MG/3 ML AMPUL NEB PRN ×2 (07:49→19:42)
[2018-06-10 08:07] LABS: ALANINE AMINOTRANSFERASE 32 U/L (9-52); ALBUMIN 2.9 g/dL (3.5-5.0); ALKALINE PHOSPHATASE 51 U/L (38-126); ANION GAP 5 (5-19); ASPARTATE AMINO TRANSFERASE 19 U/L (14-36); BILIRUBIN,DIRECT 0.2 mg/dL (0.0-0.4); BILIRUBIN,TOTAL 0.3 mg/dL (0.2-1.3); BLOOD UREA NITROGEN 42 mg/dL (7-20); CARBON DIOXIDE 29 mmol/L (22-30); CHLORIDE 102 mmol/L (98-107); GLUCOSE 108 mg/dL (75-110); POTASSIUM 5.6 mmol/L (3.6-5.0); SODIUM 135.8 mmol/L (137-145); TOTAL PROTEIN 5.4 g/dL (6.3-8.2)
[2018-06-10] MEDS: LISINOPRIL 10 MG TABLET PO SCH (10:09)
[2018-06-10] MEDS: SERTRALINE HCL 50 MG TABLET PO SCH (10:09)
[2018-06-10] MEDS: CALCIUM CARBONATE 250 MG/VITAMIN D3 125 UNIT TABLET PO SCH (10:09)
[2018-06-10] MEDS: NYSTATIN 500000 UNIT/5 ML UDCUP PO SCH ×4 (10:09→22:04)
[2018-06-10] MEDS: PREDNISONE 10 MG TABLET PO SCH ×2 (10:09→19:05)
[2018-06-10] MEDS: AMLODIPINE BESYLATE 5 MG TABLET PO SCH ×2 (10:09→22:04)
[2018-06-10] MEDS: ASPIRIN 81 MG TABLET, CHEWABLE PO SCH (10:09)
[2018-06-10] MEDS: FLUTICASONE NASAL SPRAY 50 MCG/SPRY 120 SPRAY/16 GM NASL SCH ×2 (10:10→22:04)
[2018-06-10] MEDS ORDERED: SODIUM POLYSTYRENE SULFONATE 15 GM/60 ML PO ONE ×2 (11:15→11:45)
[2018-06-10] MEDS: SENNOSIDES/DOCUSATE 8.6-50 MG 1 EACH TABLET PO SCH (12:03)
--- NOTE | 2018-06-10 15:16 | PDOC PROGRESS REPORT ---
Subjective Progress Note for:: 06/10/18 Subjective:: -This is a 82 year old female assisted living resident with past medical history of CVA and dementia who initially presented with diarrhea was admitted for colitis and bilateral pneumonia. She was started on Rocephin and Flagyl. Chest CT done yesterday 05/24 shows extensive right sided consolidation, multifocal PNA and possible endobronchial plugging. Results discussed with patient and family including son/DPOA on bedside. She is a full code. No acute event overnight. This morning, she is saturating well on 2L of O2 via NC. She says she still has SOB but this has not worsened from yesterday. She is not tachypneic. She continues to have minimally productive cough. Denies chest pain. 05/26/2018-no acute events in the last 24 hours. Afebrile. Pulse ox is 96% on 2 L. Patient is on Rocephin and Flagyl for colitis/bilateral pneumonia. 05/27/2018-no acute events in the last 24 hours. Physical therapy try to work with the patient but because of the increased weakness and gait instability the recommendation is to put the patient on bedrest. To the family about moving her from assisted living to acute rehab for a short physical therapy and they agreed to proceed with the new plan. 05/28/2018-The nurse notified me around 11:00 that patient has a small brief episode of a cardiac arrhythmia. Patient is asymptomatic at the time. The rhythm strips gross cardiac arrhythmia less than 6 seconds. I am going to order 12-lead EKG. given to see the patient talk to the patient patient denies any chest pains denies any shortness of breath. 05/29/2018-patient has not had 3 episodes of cardiac arrhythmia few seconds of V. tach patient is asymptomatic. Cardiology consult was requested and Dr. Bustillo looked at the strip and recommended a change from DuoNeb to Xopenex nebulizations. 05/30/2018-patient is comfortably in the bed no acute events in the last 24 hours. She is afebrile. Waiting for placement. 05/31/2018-no acute events in the last 24 hours. Patient waiting for placement. According to the patient's sister there is no bed is available in [facility] now the [facility]. 06/01/2018-no acute events in the last 24 hours. Patient waiting for placement. Patient is afebrile. Blood pressures are running high this morning. I am going to adjust the blood pressure medications. 06/09/2018-no acute events in the last 24 hours patient is afebrile. She had a pleural tap that was done waiting for the culture reports. Patient pulse ox is 92-94% on room air. 06/10/2018 no acute events in the last 24 hours. Patient is afebrile. Patient potassium level went up to 5.6 this morning and repeat potassium after getting Kayexalate is 5.5. Requested nurse to give dextrose 1 ampoule IV push along with regular insulin 6 units subcu I am planning to repeat the potassium around 5 PM today. Reason For Visit: PNEUMONIA Physical Exam Vital Signs: Temp Pulse Resp BP Pulse Ox 98.6 F 61 16 153/49 H 99 06/10/18 12:00 06/10/18 12:00 06/10/18 12:00 06/10/18 12:00 06/10/18 12:00 Intake & Output 06/09/18 06/10/18 06/11/18 06:59 06:59 06:59 Intake Total 860 175 50 Balance 860 175 50 Weight 59.2 kg 55.5 kg General appearance: PRESENT: no acute distress Head exam: PRESENT: atraumatic Eye exam: PRESENT: PERRLA Mouth exam: PRESENT: moist Neck exam: ABSENT: carotid bruit, JVD, lymphadenopathy, thyromegaly Respiratory exam: PRESENT: decreased breath sounds. ABSENT: rales, rhonchi, wheezes Cardiovascular exam: PRESENT: RRR. ABSENT: diastolic murmur, rubs, systolic murmur GI/Abdominal exam: PRESENT: normal bowel sounds, soft. ABSENT: distended, guarding, mass, organolmegaly, rebound, tenderness Extremities exam: PRESENT: full ROM. ABSENT: calf tenderness, clubbing, pedal edema Neurological exam: PRESENT: alert, awake, oriented to person, oriented to place, oriented to time, oriented to situation, CN II-XII grossly intact. ABSENT: motor sensory deficit Psychiatric exam: PRESENT: appropriate affect, normal mood. ABSENT: homicidal ideation, suicidal ideation Results Laboratory Results: 06/10/18 03:32 06/10/18 14:14 06/10/18 06/10/18 06/10/18 03:32 03:32 07:27 WBC 11.8 H RBC 3.71 L Hgb 10.9 L Hct 32.7 L MCV 88 MCH 29.4 MCHC 33.3 RDW 16.5 H Plt Count 173 Seg Neutrophils % 90.1 H Lymphocytes % 5.2 L Monocytes % 4.4 Eosinophils % 0.1 Basophils % 0.2 Absolute Neutrophils 10.7 H Absolute Lymphocytes 0.6 Absolute Monocytes 0.5 Absolute Eosinophils 0.0 Absolute Basophils 0.0 Sodium Cancelled 135.8 L Potassium Cancelled 5.6 H Chloride Cancelled 102 Carbon Dioxide Cancelled 29 Anion Gap Cancelled 5 BUN Cancelled 42 H Creatinine Cancelled 1.20 Est GFR ( Amer) Cancelled 52 L Est GFR (Non-Af Amer) Cancelled 43 L Glucose Cancelled 108 Calcium Cancelled 9.0 Magnesium Cancelled 2.5 H Total Bilirubin Cancelled 0.3 AST Cancelled 19 ALT Cancelled 32 Alkaline Phosphatase Cancelled 51 Total Protein Cancelled 5.4 L Albumin Cancelled 2.9 L 06/10/18 14:14 WBC RBC Hgb Hct MCV MCH MCHC RDW Plt Count Seg Neutrophils % Lymphocytes % Monocytes % Eosinophils % Basophils % Absolute Neutrophils Absolute Lymphocytes Absolute Monocytes Absolute Eosinophils Absolute Basophils Sodium Potassium 5.5 H Chloride Carbon Dioxide Anion Gap BUN Creatinine Est GFR ( Amer) Est GFR (Non-Af Amer) Glucose Calcium Magnesium Total Bilirubin AST ALT Alkaline Phosphatase Total Protein Albumin 05/22/18 05/22/18 05/28/18 21:42 21:42 11:00 Creatine Kinase 960 H 25 L CK-MB (CK-2) 6.47 H Troponin I 0.022 05/28/18 05/28/18 05/28/18 11:00 18:34 18:34 Creatine Kinase 28 L CK-MB (CK-2) 0.85 0.85 Troponin I < 0.012 < 0.012 05/29/18 05/29/18 00:20 00:20 Creatine Kinase 23 L CK-MB (CK-2) 0.82 Troponin I < 0.012 Impressions: Abdomen Ultrasound 05/22/18 21:25 IMPRESSION: The gallbladder could not be visualized, due to body habitus and inability to position patient correctly. The common bile duct is normal. 7 cm cyst in the right kidney. Abdomen/Pelvis CT 05/22/18 22:54 IMPRESSION: Fluid within the proximal two thirds of the gallbladder which could be secondary to an underlying diarrheal process. Possible developing bibasilar pneumonia. Chest CT 06/02/18 13:50 IMPRESSION: BILATERAL PLEURAL EFFUSIONS, RIGHT GREATER THAN LEFT, HAVE INCREASED IN SIZE. PATCHY GROUND-GLASS AIRSPACE DISEASE IN THE UPPER LOBES HAS INCREASED SINCE THE PRIOR STUDY. CONSOLIDATION/COMPRESSIVE ATELECTASIS IN THE RIGHT LOWER LOBE. Thoracentesis Ultrasound 06/04/18 11:16 IMPRESSION: SUCCESSFUL THORACENTESIS USING ULTRASOUND GUIDANCE. Head CT 06/08/18 11:16 IMPRESSION: Involutional changes of aging with no acute intracranial imaging findings. EVIDENCE OF ACUTE STROKE: NO. Chest X-Ray 06/09/18 06:00 IMPRESSION: STABLE APPEARANCE OF THE CHEST. SMALL LEFT PLEURAL EFFUSION. Assessment & Plan - Diagnosis (1) Acute respiratory failure with hypoxia Is this a current diagnosis for this admission?: Yes Plan: Secondary to multifocal pneumonia. Currently saturating well on 2L via NC but she does report SOB. BIPAP to alternate with NC, 4 hrs on/4 hrs off. 05/26/2018-acute respiratory failure with hypoxia secondary to multifocal pneumonia. Patient is on Rocephin. Today's pulse ox is 96% on 2 L. 05/27/2018-patient is admitted with acute respiratory failure with hypoxia secondary to multifocal pneumonia patient is on IV zosyn patient is comfortably in the bed on 2 L oxygen. T-max is 97.9. To continue the present management .cultures are negative so far. 05/28/2018-patient has multifocal pneumonia and on IV zosyn . Pulse ox is 95% on 2 L. Denies any shortness of breath or chest pains. These cultures are negative so far. T-max is 98.3. 05/29/2018-patient has multifocal pneumonia she is on IV zosyn pulse ox is and I am going to repeat the chest x-ray today 98% 2 L. [id number] chest x-ray still shows right-sided pneumonia. Patient is on Zosyn and azithromycin. Plan is to continue the present management. 05/31/2018 repeat chest x-ray on 05/30/2018 shows right-sided pneumonia patient is on Zosyn and azithromycin she completed 7 days of course of antibiotics I am going to stop the antibiotics today she is afebrile for the last 3-4 days. Patient's pulse ox is 94% on 2 L. 06/01/2018-patient was admitted with right-sided pneumonia. She was started on Zosyn and Zithromax. Work came back negative. Antibiotics were stopped. She is afebrile. Her T-max is 97.7. Since pulse ox is 97% on 1 L. 06/09/2017-patient's pulse ox is 90-94% on room air. Repeat chest x-ray shows very small left pleural effusion. She had recently had a pleural tap was done more than 700 cc of fluid was removed waiting for the culture reports. Patient still on levofloxacin. We got in touch with Dr. Weller this morning and he does not have to do to do bronchoscopy because patient is doing better chest x- ray shows significant improvement. He is on a scheduled nebulizations and she is getting CPT. 06/10/2018-patient is off the oxygen from yesterday pulse oxes are 96-98% on room air. Patient is afebrile. Repeat x-ray shows small left pleural effusions. Plan is to continue the present management. Hypoxia resolved. (2) Colitis Is this a current diagnosis for this admission?: Yes Plan: Resolved. No recurrence of diarrhea or abdominal pain. Flagyl DCed. Switched antibiotics as mentioned above. 05/26/2018 colitis was resolved. Flagyl was discontinued. Presently on azithromycin and Zosyn. 05/27/2018 colitis was resolved Flagyl was discontinued 2 days ago. 05/28/2018 patient denies any abdominal pain diarrhea. Colitis is resolved. 05/29/2018. No complaints of loose stools or diarrhea. No abdominal pains. Colitis was resolved. 05/31/2018 patient has no more episodes of loose stools. Initially she was on Flagyl for colitis. We discontinued Flagyl few days ago she does not have any problem with bowel movements anymore. 06/01/2018 colitis was resolved. 06/09/2018-patient is complaining of nonspecific abdominal pain no diarrhea. She has chronic history of colitis. During the hospital stay his CD4 checked which was negative. 06/10/2018-patient has history of chronic colitis. During the hospital stay C. difficile came back negative. She finished a course of Flagyl. Plan is to continue the present management. (3) HCAP (healthcare-associated pneumonia) Is this a current diagnosis for this admission?: Yes Plan: As per number #1. Low threshold for ICU transfer if patient develops desaturation or worsening SOB. Chest CT ordered and shows multifocal pneumonia with extensive right lung consolidation and possible endobronchial plugging. Patient did have recent hospitalization. Broaden antibiotic coverage and switched to vancomycin and Zosyn. Also on azithromycin. Will consult pulmonology for further recommendations. Continue breathing treatments. Will add mucomyst as well. 05/25/18. Hold vancomycin for now as creatinine has slightly trended up. Continue Zosyn and azithromycin. Discussed with Dr. Weller over phone. 05/26/2018 patient failed outpatient antibiotic therapy for pneumonia. CT scan shows multifocal pneumonia with extensive right lung consolidation with possible endobronchial plugging. And history of hospitalization. #1 Zosyn and pamela thromycin. pulmonary on board. is on board. 05/27 patient came from assisted living to the hospital. CT scan shows multifocal pneumonia with extensive right lung consolidation with possible e ndobronchial plugging. Patient is on Zosyn and azithromycin. Blood cultures are negative so far. 05/28/2018-on Zosyn and azithromycin. The blood cultures are negative so far. CT scan shows multifocal pneumonia with right lung consolidation. Planning to continue the present management. 05/29/2018-healthcare acquired pneumonia on Zosyn and azithromycin. Cultures are negative. CT scan shows multifocal pneumonia with right lung consolidation. She is getting CPT treatment. Plan to repeat the chest x-ray today. 05/30/2018 patient is afebrile vitals are stable plan is to continue Zosyn and azithromycin. 05/31/2018-patient has health care associated pneumonia healthcare associated pneumonia rather she was treated with Zosyn and azithromycin she completed 8 days of antibiotics and I am going to stop the antibiotics today. 06/01/2018 patient has healthcare associated pneumonia she was treated with Zosyn and azithromycin she completed the course of antibiotic therapy she is off the antibiotics since yesterday. 06/09/2018-patient was initially admitted for right-sided pneumonia she got total of 7 days of antibiotic therapy and antibiotics were discontinued because patient is afebrile but the follow-up CT shows extensive right lung consolidation possible endocardial plugging and with left pleural effusion status post plueral tap was done more than 700 cc of fluid was removed repeat chest x-ray shows no evidence of pneumonia very minimal left pleural effusion 06/10/2018-patient is initially admitted with right-sided pneumonia treated with Zosyn and azithromycin antibiotics were discontinued after 1 week of therapy but follow-up CT scan shows extensive consolidation and left pleural effusion status post thoracentesis was done and antibiotics were restarted presently she is on levofloxacin and she is afebrile. Gram stain of the pleural fluid showing no anaerobic or aerobic organisms. (4) Dementia Is this a current diagnosis for this admission?: Yes Plan: 06/01/2018-patient has history of dementia. She has difficulty in memory and communication. She is also problems with ambulation. Physical therapy consult was done and the recommendation is patient is to be bedbound and can come out of the bed with assistance only. In my opinion patient need to go to acute rehab and she may have to stay there less than 30 days to recover. 06/09/2018-plan is to continue the present management. 06/10/2018-patient has advanced dementia plan is to continue the present management. (5) Hyperkalemia Is this a current diagnosis for this admission?: Yes Plan: 06/10/2018-potassium level came back as 5.6 this morning after getting given Ronna xalate repeat potassium is 5.5. Planning to give 1 amp of dextrose with 6 units of regular insulin subcu and will repeat the potassium level around 5 PM today because of the hyperkalemia the plan of discharge to rehab was on hold I am going to order the labs tomorrow and reassess the patient before transferring the patient to the halfway. - Time Time Spent with patient: 15-24 minutes Medications reviewed and adjusted accordingly: Yes Anticipated discharge: SNF
[2018-06-10] MEDS ORDERED: INSULIN REG, HUMAN 100 UNIT/ML 3 ML VIAL (PYX) SUBCUT ONE (15:30)
[2018-06-10] MEDS ORDERED: DEXTROSE 50%-WATER 25 GM/50 ML DISP.SYRIN IV ONE (15:30)
[2018-06-10] MEDS: LEVOFLOXACIN 750 MG TABLET PO SCH (19:05)
[2018-06-10] MEDS: BIMATOPROST 0.01% OPH SOLN 2.5 ML/BOTTLE OS SCH (22:03)
[2018-06-11 04:21] LABS: ABSOLUTE LYMPHOCYTES (AUTO) 0.7 10^3/uL (0.5-4.7); ABSOLUTE MONOCYTES (AUTO) 0.6 10^3/uL (0.1-1.4); ABSOLUTE NEUT (AUTO) 10.8 10^3/uL (1.7-8.2); BASOPHILS % (AUTO) 0.1 % (0-2); EOSINOPHILS % (AUTO) 0.1 % (0-6); HEMATOCRIT 29.3 % (36.0-47.0); HEMOGLOBIN 9.9 g/dL (12.0-15.5); LYMPHOCYTES % (AUTO) 6.1 % (13-45); MEAN CORPUSCULAR HEMOGLOBIN 29.8 pg (27.0-33.4); MEAN CORPUSCULAR HGB CONC 33.7 g/dL (32.0-36.0); MEAN CORPUSCULAR VOLUME 89 fl (80-97); MONOCYTES % (AUTO) 4.9 % (3-13); PLATELET COUNT 149 10^3/uL (150-450); RED BLOOD COUNT 3.31 10^6/uL (3.72-5.28); RED CELL DISTRIBUTION WIDTH 16.5 % (11.5-14.0); SEGMENTED NEUTROPHILS % (AUTO) 88.8 % (42-78); TOTAL CELLS COUNTED % (AUTO) 100 %; WHITE BLOOD COUNT 12.1 10^3/uL (4.0-10.5)
[2018-06-11 04:43] LABS: ALANINE AMINOTRANSFERASE 26 U/L (9-52); ALBUMIN 3.1 g/dL (3.5-5.0); ALKALINE PHOSPHATASE 51 U/L (38-126); ANION GAP 8 (5-19); ASPARTATE AMINO TRANSFERASE 16 U/L (14-36); BILIRUBIN,DIRECT 0.2 mg/dL (0.0-0.4); BILIRUBIN,TOTAL 0.3 mg/dL (0.2-1.3); BLOOD UREA NITROGEN 44 mg/dL (7-20); CALCIUM 8.8 mg/dL (8.4-10.2); CARBON DIOXIDE 27 mmol/L (22-30); CHLORIDE 102 mmol/L (98-107); GLUCOSE 131 mg/dL (75-110); POTASSIUM 5.5 mmol/L (3.6-5.0); SODIUM 136.7 mmol/L (137-145); TOTAL PROTEIN 5.3 g/dL (6.3-8.2)
[2018-06-11] MEDS: CHLORPHENIRAMINE MALEATE 4 MG TABLET PO SCH ×4 (05:19→17:53)
[2018-06-11] MEDS: HEPARIN SOD (PORCINE) 5,000 UNIT/ML 1 ML SYRINGE SUBCUT SCH ×3 (05:22→21:38)
[2018-06-11] MEDS: LEVOTHYROXINE SODIUM 0.088 MG TABLET PO SCH (05:22)
[2018-06-11] MEDS: ACETYLCYSTEINE 10% NEB 400 MG/4 ML VIAL NEB SCH ×2 (08:12→20:00)
[2018-06-11] MEDS: LEVALBUTEROL HCL NEB 0.63 MG/3 ML AMPUL NEB PRN ×2 (08:12→20:00)
[2018-06-11] MEDS ORDERED: ACETAMINOPHEN 325 MG TABLET PO PRN (08:51)
[2018-06-11] MEDS: LISINOPRIL 10 MG TABLET PO SCH (10:13)
[2018-06-11] MEDS: CALCIUM CARBONATE 250 MG/VITAMIN D3 125 UNIT TABLET PO SCH (10:13)
[2018-06-11] MEDS: PREDNISONE 10 MG TABLET PO SCH ×2 (10:14→17:53)
[2018-06-11] MEDS: AMLODIPINE BESYLATE 5 MG TABLET PO SCH ×2 (10:14→21:35)
[2018-06-11] MEDS: ASPIRIN 81 MG TABLET, CHEWABLE PO SCH (10:15)
[2018-06-11] MEDS: SERTRALINE HCL 50 MG TABLET PO SCH (10:15)
[2018-06-11] MEDS: SENNOSIDES/DOCUSATE 8.6-50 MG 1 EACH TABLET PO SCH (10:15)
[2018-06-11] MEDS: NYSTATIN 500000 UNIT/5 ML UDCUP PO SCH ×4 (10:16→21:36)
[2018-06-11] MEDS: FLUTICASONE NASAL SPRAY 50 MCG/SPRY 120 SPRAY/16 GM NASL SCH ×2 (10:16→21:35)
--- NOTE | 2018-06-11 13:13 | PDOC PROGRESS REPORT ---
Subjective Progress Note for:: 06/11/18 Subjective:: -This is a 82 year old female assisted living resident with past medical history of CVA and dementia who initially presented with diarrhea was admitted for colitis and bilateral pneumonia. She was started on Rocephin and Flagyl. Chest CT done yesterday 05/24 shows extensive right sided consolidation, multifocal PNA and possible endobronchial plugging. Results discussed with patient and family including son/DPOA on bedside. She is a full code. No acute event overnight. This morning, she is saturating well on 2L of O2 via NC. She says she still has SOB but this has not worsened from yesterday. She is not tachypneic. She continues to have minimally productive cough. Denies chest pain. 05/26/2018-no acute events in the last 24 hours. Afebrile. Pulse ox is 96% on 2 L. Patient is on Rocephin and Flagyl for colitis/bilateral pneumonia. 05/27/2018-no acute events in the last 24 hours. Physical therapy try to work with the patient but because of the increased weakness and gait instability the recommendation is to put the patient on bedrest. To the family about moving her from assisted living to acute rehab for a short physical therapy and they agreed to proceed with the new plan. 05/28/2018-The nurse notified me around 11:00 that patient has a small brief episode of a cardiac arrhythmia. Patient is asymptomatic at the time. The rhythm strips gross cardiac arrhythmia less than 6 seconds. I am going to order 12-lead EKG. given to see the patient talk to the patient patient denies any chest pains denies any shortness of breath. 05/29/2018-patient has not had 3 episodes of cardiac arrhythmia few seconds of V. tach patient is asymptomatic. Cardiology consult was requested and Dr. Bustillo looked at the strip and recommended a change from DuoNeb to Xopenex nebulizations. 05/30/2018-patient is comfortably in the bed no acute events in the last 24 hours. She is afebrile. Waiting for placement. 05/31/2018-no acute events in the last 24 hours. Patient waiting for placement. According to the patient's sister there is no bed is available in [facility] now the [facility]. 06/01/2018-no acute events in the last 24 hours. Patient waiting for placement. Patient is afebrile. Blood pressures are running high this morning. I am going to adjust the blood pressure medications. 06/09/2018-no acute events in the last 24 hours patient is afebrile. She had a pleural tap that was done waiting for the culture reports. Patient pulse ox is 92-94% on room air. 06/10/2018 no acute events in the last 24 hours. Patient is afebrile. Patient potassium level went up to 5.6 this morning and repeat potassium after getting Kayexalate is 5.5. Requested nurse to give dextrose 1 ampoule IV push along with regular insulin 6 units subcu I am planning to repeat the potassium around 5 PM today. 06/11/2018-no acute events in the last 24 hours. Patient is afebrile. Patient waiting for her to [facility]. The only holdup is persistently elevated potassium levels. Pulse ox is 92% on 2 L. Reason For Visit: PNEUMONIA Physical Exam Vital Signs: Temp Pulse Resp BP Pulse Ox 98.3 F 86 16 140/44 H 92 06/11/18 08:00 06/11/18 08:12 06/11/18 08:12 06/11/18 08:00 06/11/18 08:12 Intake & Output 06/10/18 06/11/18 06/12/18 06:59 06:59 06:59 Intake Total 175 100 Balance 175 100 Weight 55.5 kg 53 kg General appearance: PRESENT: no acute distress Head exam: PRESENT: atraumatic Eye exam: PRESENT: PERRLA Mouth exam: PRESENT: moist Neck exam: ABSENT: carotid bruit, JVD, lymphadenopathy, thyromegaly Respiratory exam: PRESENT: decreased breath sounds Cardiovascular exam: PRESENT: RRR. ABSENT: diastolic murmur, rubs, systolic murmur GI/Abdominal exam: PRESENT: normal bowel sounds, soft. ABSENT: distended, guarding, mass, organolmegaly, rebound, tenderness Neurological exam: PRESENT: alert, awake, oriented to person, oriented to place, oriented to time, oriented to situation, CN II-XII grossly intact. ABSENT: motor sensory deficit Psychiatric exam: PRESENT: appropriate affect, normal mood. ABSENT: homicidal ideation, suicidal ideation Results Laboratory Results: 06/11/18 03:59 06/11/18 03:59 06/10/18 06/10/18 06/11/18 14:14 17:24 03:59 WBC 12.1 H RBC 3.31 L Hgb 9.9 L Hct 29.3 L MCV 89 MCH 29.8 MCHC 33.7 RDW 16.5 H Plt Count 149 L Seg Neutrophils % 88.8 H Lymphocytes % 6.1 L Monocytes % 4.9 Eosinophils % 0.1 Basophils % 0.1 Absolute Neutrophils 10.8 H Absolute Lymphocytes 0.7 Absolute Monocytes 0.6 Absolute Eosinophils 0.0 Absolute Basophils 0.0 Sodium Potassium 5.5 H 5.6 H Chloride Carbon Dioxide Anion Gap BUN Creatinine Est GFR ( Amer) Est GFR (Non-Af Amer) Glucose Calcium Magnesium Total Bilirubin AST ALT Alkaline Phosphatase Total Protein Albumin 06/11/18 03:59 WBC RBC Hgb Hct MCV MCH MCHC RDW Plt Count Seg Neutrophils % Lymphocytes % Monocytes % Eosinophils % Basophils % Absolute Neutrophils Absolute Lymphocytes Absolute Monocytes Absolute Eosinophils Absolute Basophils Sodium 136.7 L Potassium 5.5 H Chloride 102 Carbon Dioxide 27 Anion Gap 8 BUN 44 H Creatinine 1.12 Est GFR ( Amer) 56 L Est GFR (Non-Af Amer) 46 L Glucose 131 H Calcium 8.8 Magnesium 2.4 H Total Bilirubin 0.3 AST 16 ALT 26 Alkaline Phosphatase 51 Total Protein 5.3 L Albumin 3.1 L 05/22/18 05/22/18 05/28/18 21:42 21:42 11:00 Creatine Kinase 960 H 25 L CK-MB (CK-2) 6.47 H Troponin I 0.022 05/28/18 05/28/18 05/28/18 11:00 18:34 18:34 Creatine Kinase 28 L CK-MB (CK-2) 0.85 0.85 Troponin I < 0.012 < 0.012 05/29/18 05/29/18 00:20 00:20 Creatine Kinase 23 L CK-MB (CK-2) 0.82 Troponin I < 0.012 Impressions: Abdomen Ultrasound 05/22/18 21:25 IMPRESSION: The gallbladder could not be visualized, due to body habitus and inability to position patient correctly. The common bile duct is normal. 7 cm cyst in the right kidney. Abdomen/Pelvis CT 05/22/18 22:54 IMPRESSION: Fluid within the proximal two thirds of the gallbladder which could be secondary to an underlying diarrheal process. Possible developing bibasilar pneumonia. Chest CT 06/02/18 13:50 IMPRESSION: BILATERAL PLEURAL EFFUSIONS, RIGHT GREATER THAN LEFT, HAVE INCREASED IN SIZE. PATCHY GROUND-GLASS AIRSPACE DISEASE IN THE UPPER LOBES HAS INCREASED SINCE THE PRIOR STUDY. CONSOLIDATION/COMPRESSIVE ATELECTASIS IN THE RIGHT LOWER LOBE. Thoracentesis Ultrasound 06/04/18 11:16 IMPRESSION: SUCCESSFUL THORACENTESIS USING ULTRASOUND GUIDANCE. Head CT 06/08/18 11:16 IMPRESSION: Involutional changes of aging with no acute intracranial imaging findings. EVIDENCE OF ACUTE STROKE: NO. Chest X-Ray 06/09/18 06:00 IMPRESSION: STABLE APPEARANCE OF THE CHEST. SMALL LEFT PLEURAL EFFUSION. Assessment & Plan - Diagnosis (1) Acute respiratory failure with hypoxia Is this a current diagnosis for this admission?: Yes Plan: Secondary to multifocal pneumonia. Currently saturating well on 2L via NC but she does report SOB. BIPAP to alternate with NC, 4 hrs on/4 hrs off. 05/26/2018-acute respiratory failure with hypoxia secondary to multifocal pneumonia. Patient is on Rocephin. Today's pulse ox is 96% on 2 L. 05/27/2018-patient is admitted with acute respiratory failure with hypoxia secondary to multifocal pneumonia patient is on IV zosyn patient is comfortably in the bed on 2 L oxygen. T-max is 97.9. To continue the present management .cultures are negative so far. 05/28/2018-patient has multifocal pneumonia and on IV zosyn . Pulse ox is 95% on 2 L. Denies any shortness of breath or chest pains. These cultures are negative so far. T-max is 98.3. 05/29/2018-patient has multifocal pneumonia she is on IV zosyn pulse ox is and I am going to repeat the chest x-ray today 98% 2 L. [id number] chest x-ray still shows right-sided pneumonia. Patient is on Zosyn and azithromycin. Plan is to continue the present management. 05/31/2018 repeat chest x-ray on 05/30/2018 shows right-sided pneumonia patient is on Zosyn and azithromycin she completed 7 days of course of antibiotics I am going to stop the antibiotics today she is afebrile for the last 3-4 days. Patient's pulse ox is 94% on 2 L. 06/01/2018-patient was admitted with right-sided pneumonia. She was started on Zosyn and Zithromax. Work came back negative. Antibiotics were stopped. She is afebrile. Her T-max is 97.7. Since pulse ox is 97% on 1 L. 06/09/2017-patient's pulse ox is 90-94% on room air. Repeat chest x-ray shows very small left pleural effusion. She had recently had a pleural tap was done more than 700 cc of fluid was removed waiting for the culture reports. Patient still on levofloxacin. We got in touch with Dr. Weller this morning and he does not have to do to do bronchoscopy because patient is doing better chest x- ray shows significant improvement. He is on a scheduled nebulizations and she is getting CPT. 06/10/2018-patient is off the oxygen from yesterday pulse oxes are 96-98% on room air. Patient is afebrile. Repeat x-ray shows small left pleural effusions. Plan is to continue the present management. Hypoxia resolved. 06/11/2018-pulse ox is 92% on room air. Patient is not in distress. Hypoxia was resolved. She is getting regular scheduled nebulizations and CPT. Chest are negative. Status post thoracentesis more than 700 cc of fluid was removed the cultures are negative so far. Is on levofloxacin which was started on 5th of this month. (2) Colitis Is this a current diagnosis for this admission?: Yes Plan: Resolved. No recurrence of diarrhea or abdominal pain. Flagyl DCed. Switched antibiotics as mentioned above. 05/26/2018 colitis was resolved. Flagyl was discontinued. Presently on azithromycin and Zosyn. 05/27/2018 colitis was resolved Flagyl was discontinued 2 days ago. 05/28/2018 patient denies any abdominal pain diarrhea. Colitis is resolved. 05/29/2018. No complaints of loose stools or diarrhea. No abdominal pains. Colitis was resolved. 05/31/2018 patient has no more episodes of loose stools. Initially she was on Flagyl for colitis. We discontinued Flagyl few days ago she does not have any problem with bowel movements anymore. 06/01/2018 colitis was resolved. 06/09/2018-patient is complaining of nonspecific abdominal pain no diarrhea. She has chronic history of colitis. During the hospital stay his CD4 checked which was negative. 06/10/2018-patient has history of chronic colitis. During the hospital stay C. difficile came back negative. She finished a course of Flagyl. Plan is to continue the present management. 06/11/2018 no complaints of abdominal pain or diarrhea. Colitis resolved. (3) HCAP (healthcare-associated pneumonia) Is this a current diagnosis for this admission?: Yes Plan: As per number #1. Low threshold for ICU transfer if patient develops desaturation or worsening SOB. Chest CT ordered and shows multifocal pneumonia with extensive right lung consolidation and possible endobronchial plugging. Patient did have recent hospitalization. Broaden antibiotic coverage and switched to vancomycin and Zosyn. Also on azithromycin. Will consult pulmonology for further recommendations. Continue breathing treatments. Will add mucomyst as well. 05/25/18. Hold vancomycin for now as creatinine has slightly trended up. Continue Zosyn and azithromycin. Discussed with Dr. Weller over phone. 05/26/2018 patient failed outpatient antibiotic therapy for pneumonia. CT scan shows multifocal pneumonia with extensive right lung consolidation with possible endobronchial plugging. And history of hospitalization. #1 Zosyn and azithromycin. pulmonary on board. is on board. 05/27 patient came from assisted living to the hospital. CT scan shows multifocal pneumonia with extensive right lung consolidation with possible endobronchial plugging. Patient is on Zosyn and azithromycin. Blood cultures are negative so far. 05/28/2018-on Zosyn and azithromycin. The blood cultures are negative so far. CT scan shows multifocal pneumonia with right lung consolidation. Planning to continue the present management. 05/29/2018-healthcare acquired pneumonia on Zosyn and azithromycin. Cultures are negative. CT scan shows multifocal pneumonia with right lung consolidation. She is getting CPT treatment. Plan to repeat the chest x-ray today. 05/30/2018 patient is afebrile vitals are stable plan is to continue Zosyn and azithromycin. 05/31/2018-patient has health care associated pneumonia healthcare associated pneumonia rather she was treated with Zosyn and azithromycin she completed 8 days of antibiotics and I am going to stop the antibiotics today. 06/01/2018 patient has healthcare associated pneumonia she was treated with Zosyn and azithromycin she completed the course of antibiotic therapy she is off the antibiotics since yesterday. 06/09/2018-patient was initially admitted for right-sided pneumonia she got total of 7 days of antibiotic therapy and antibiotics were discontinued because patient is afebrile but the follow-up CT shows extensive right lung consolidation possible endocardial plugging and with left pleural effusion status post plueral tap was done more than 700 cc of fluid was removed repeat est x-ray shows no evidence of pneumonia very minimal left pleural effusion 06/10/2018-patient is initially admitted with right-sided pneumonia treated with Zosyn and azithromycin antibiotics were discontinued after 1 week of therapy but follow-up CT scan shows extensive consolidation and left pleural effusion status post thoracentesis was done and antibiotics were restarted presently she is on levofloxacin and she is afebrile. Gram stain of the pleural fluid showing no anaerobic or aerobic organisms. 06/11/2018-patient is on levofloxacin 750 mg IV daily. Afebrile. Cultures are negative so far. The culture from the pleural fluid negative for aerobic or anaerobic growth. (4) Dementia Is this a current diagnosis for this admission?: Yes Plan: 06/01/2018-patient has history of dementia. She has difficulty in memory and communication. She is also problems with ambulation. Physical therapy consult was done and the recommendation is patient is to be bedbound and can come out of the bed with assistance only. In my opinion patient need to go to acute rehab and she may have to stay there less than 30 days to recover. 06/09/2018-plan is to continue the present management. 06/10/2018-patient has advanced dementia plan is to continue the present management. (5) Hyperkalemia Is this a current diagnosis for this admission?: Yes Plan: 06/10/2018-potassium level came back as 5.6 this morning after getting given Kayexalate repeat potassium is 5.5. Planning to give 1 amp of dextrose with 6 units of regular insulin subcu and will repeat the potassium level around 5 PM today because of the hyperkalemia the plan of discharge to rehab was on hold I am going to order the labs tomorrow and reassess the patient before transferring the [facility] to the [facility]. 06/11/2018 potassium level is persistently high today it was 5.5. At 15 g of Kayexalate 1 dose, 1 amp left 50% dextrose and 6 units of regular insulin despite that potassium is 5.5 this morning. Plan today is to give a Kayexalate 60 g p.o. 1 dose, 50% dextrose 1 ampoule with 6 units of regular insulin and a plan to repeat the potassium level level around 5 PM today. - Time Time Spent with patient: 15-24 minutes Medications reviewed and adjusted accordingly: Yes Anticipated discharge: SNF
[2018-06-11] MEDS ORDERED: SODIUM POLYSTYRENE SULFONATE 15 GM/60 ML PO ONE (13:15)
[2018-06-11] MEDS ORDERED: INSULIN REG, HUMAN 100 UNIT/ML 3 ML VIAL (PYX) SUBCUT ONE (15:00)
[2018-06-11] MEDS ORDERED: DEXTROSE 50%-WATER 25 GM/50 ML DISP.SYRIN IV ONE (15:00)
[2018-06-11] MEDS ORDERED: ONDANSETRON HCL INJ/PF 4 MG/2 ML SDV IV PRN (18:42)
[2018-06-11] MEDS: BIMATOPROST 0.01% OPH SOLN 2.5 ML/BOTTLE OS SCH (21:37)
--- NOTE | 2018-06-11 22:01 | RADIOLOGY REPORT (SQ) ---
EXAM DESCRIPTION: XR ABDOMEN 1 VIEW (KUB) COMPLETED DATE/TME: 06/11/2018 00:00 CLINICAL HISTORY: 82 years, Female, nausea and vomitings Compared to CT abdomen dated 05/22/2018. Findings: No free air. Large amount of stool in the colon with moderate colonic dilatation. Surgical sutures seen in the lower abdomen and pelvis. IMPRESSION: Findings consistent with constipation. This appears to have developed in the interval from the prior CT study.
[2018-06-12 05:33] LABS: HEMATOCRIT 36.9 % (36.0-47.0); MEAN CORPUSCULAR HEMOGLOBIN 29.7 pg (27.0-33.4); MEAN CORPUSCULAR HGB CONC 33.5 g/dL (32.0-36.0); MEAN CORPUSCULAR VOLUME 89 fl (80-97); PLATELET COUNT 178 10^3/uL (150-450); RED BLOOD COUNT 4.17 10^6/uL (3.72-5.28); RED CELL DISTRIBUTION WIDTH 17.1 % (11.5-14.0); WHITE BLOOD COUNT 23.2 10^3/uL (4.0-10.5)
[2018-06-12] MEDS: CHLORPHENIRAMINE MALEATE 4 MG TABLET PO SCH ×4 (05:40→17:16)
[2018-06-12] MEDS: LEVOTHYROXINE SODIUM 0.088 MG TABLET PO SCH (05:41)
[2018-06-12] MEDS: HEPARIN SOD (PORCINE) 5,000 UNIT/ML 1 ML SYRINGE SUBCUT SCH ×3 (05:42→21:33)
[2018-06-12 05:44] LABS: HEMOGLOBIN 12.4 g/dL (12.0-15.5)
[2018-06-12 05:58] LABS: ABSOLUTE LYMPHOCYTES# (MANUAL) 0.9 10^3/uL (0.5-4.7); ABSOLUTE MONOCYTES # (MANUAL) 0.7 10^3/uL (0.1-1.4); ABSOLUTE NEUTROPHILS# (MANUAL) 21.6 10^3/uL (1.7-8.2); ANISOCYTOSIS 1+; BAND NEUTROPHILS % (MANUAL) 4 % (3-5); BASOPHILS % (MANUAL) 0 % (0-2); EOSINOPHILS % (MANUAL) 0 % (0-6); LYMPHOCYTES % (MANUAL) 4 % (13-45); MONOCYTES % (MANUAL) 3 % (3-13); PLATELET COMMENT ADEQUATE; SEGMENTED NEUTROPHILS % (MAN) 89 % (42-78); TOTAL CELLS COUNTED 100; TOXIC GRANULATION 1+; TOXIC VACUOLATION PRESENT
[2018-06-12 05:59] LABS: ALANINE AMINOTRANSFERASE 34 U/L (9-52); ALBUMIN 3.7 g/dL (3.5-5.0); ALKALINE PHOSPHATASE 76 U/L (38-126); ANION GAP 10 (5-19); ASPARTATE AMINO TRANSFERASE 20 U/L (14-36); BILIRUBIN,DIRECT 0.1 mg/dL (0.0-0.4); BILIRUBIN,TOTAL 0.5 mg/dL (0.2-1.3); BLOOD UREA NITROGEN 38 mg/dL (7-20); CALCIUM 9.2 mg/dL (8.4-10.2); CARBON DIOXIDE 26 mmol/L (22-30); CHLORIDE 103 mmol/L (98-107); GLUCOSE 115 mg/dL (75-110); POTASSIUM 3.9 mmol/L (3.6-5.0); SODIUM 139.3 mmol/L (137-145); TOTAL PROTEIN 6.1 g/dL (6.3-8.2)
[2018-06-12] MEDS: LEVALBUTEROL HCL NEB 0.63 MG/3 ML AMPUL NEB PRN ×2 (08:08→20:11)
[2018-06-12] MEDS: ACETYLCYSTEINE 10% NEB 400 MG/4 ML VIAL NEB SCH ×2 (08:08→20:11)
[2018-06-12] MEDS: ASPIRIN 81 MG TABLET, CHEWABLE PO SCH (09:58)
[2018-06-12] MEDS: PREDNISONE 10 MG TABLET PO SCH ×2 (09:59→17:16)
[2018-06-12] MEDS: FLUTICASONE NASAL SPRAY 50 MCG/SPRY 120 SPRAY/16 GM NASL SCH ×2 (09:59→21:32)
[2018-06-12] MEDS: SENNOSIDES/DOCUSATE 8.6-50 MG 1 EACH TABLET PO SCH (09:59)
[2018-06-12] MEDS: AMLODIPINE BESYLATE 5 MG TABLET PO SCH ×2 (09:59→21:34)
[2018-06-12] MEDS: NYSTATIN 500000 UNIT/5 ML UDCUP PO SCH ×4 (09:59→21:35)
[2018-06-12] MEDS: CALCIUM CARBONATE 250 MG/VITAMIN D3 125 UNIT TABLET PO SCH (09:59)
[2018-06-12] MEDS: LISINOPRIL 10 MG TABLET PO SCH (09:59)
[2018-06-12] MEDS: SERTRALINE HCL 50 MG TABLET PO SCH (10:00)
--- NOTE | 2018-06-12 13:53 | RADIOLOGY REPORT (SQ) ---
EXAM DESCRIPTION: CHEST SINGLE VIEW COMPLETED DATE/TIME: 06/12/2018 1:15 pm REASON FOR STUDY: shortness of breath COMPARISON: 06/09/2018. EXAM PARAMETERS: NUMBER OF VIEWS: One view. TECHNIQUE: Single frontal radiographic view of the chest acquired. RADIATION DOSE: NA LIMITATIONS: None. FINDINGS: LUNGS AND PLEURA: No opacities, masses or pneumothorax. No pleural effusion. MEDIASTINUM AND HILAR STRUCTURES: No masses. Contour normal. HEART AND VASCULAR STRUCTURES: Heart normal in size. Normal vasculature. BONES: No acute findings. Chronic changes in the spine and left shoulder. HARDWARE: None in the chest. OTHER: No other significant finding. IMPRESSION: NO ACUTE RADIOGRAPHIC FINDING IN THE CHEST. TECHNICAL DOCUMENTATION: JOB ID: [id number] [employer]- All Rights Reserved Reading location - IP/workstation name: [email or web address]
--- NOTE | 2018-06-12 15:13 | PDOC PROGRESS REPORT ---
Subjective Progress Note for:: 06/12/18 Subjective:: -This is a 82 year old female assisted living resident with past medical history of CVA and dementia who initially presented with diarrhea was admitted for colitis and bilateral pneumonia. She was started on Rocephin and Flagyl. Chest CT done yesterday 05/24 shows extensive right sided consolidation, multifocal PNA and possible endobronchial plugging. Results discussed with patient and family including son/DPOA on bedside. She is a full code. No acute event overnight. This morning, she is saturating well on 2L of O2 via NC. She says she still has SOB but this has not worsened from yesterday. She is not tachypneic. She continues to have minimally productive cough. Denies chest pain. 05/26/2018-no acute events in the last 24 hours. Afebrile. Pulse ox is 96% on 2 L. Patient is on Rocephin and Flagyl for colitis/bilateral pneumonia. 05/27/2018-no acute events in the last 24 hours. Physical therapy try to work with the patient but because of the increased weakness and gait instability the recommendation is to put the patient on bedrest. To the family about moving her from assisted living to acute rehab for a short physical therapy and they agreed to proceed with the new plan. 05/28/2018-The nurse notified me around 11:00 that patient has a small brief episode of a cardiac arrhythmia. Patient is asymptomatic at the time. The rhythm strips gross cardiac arrhythmia less than 6 seconds. I am going to order 12-lead EKG. given to see the patient talk to the patient patient denies any chest pains denies any shortness of breath. 05/29/2018-patient has not had 3 episodes of cardiac arrhythmia few seconds of V. tach patient is asymptomatic. Cardiology consult was requested and Dr. Bustillo looked at the strip and recommended a change from DuoNeb to Xopenex nebulizations. 05/30/2018-patient is comfortably in the bed no acute events in the last 24 hours. She is afebrile. Waiting for placement. 05/31/2018-no acute events in the last 24 hours. Patient waiting for placement. According to the patient's sister there is no bed is available in [facility]. 06/01/2018-no acute events in the last 24 hours. Patient waiting for placement. Patient is afebrile. Blood pressures are running high this morning. I am going to adjust the blood pressure medications. 06/09/2018-no acute events in the last 24 hours patient is afebrile. She had a pleural tap that was done waiting for the culture reports. Patient pulse ox is 92-94% on room air. 06/10/2018 no acute events in the last 24 hours. Patient is afebrile. Patient potassium level went up to 5.6 this morning and repeat potassium after getting Kayexalate is 5.5. Requested nurse to give dextrose 1 ampoule IV push along with regular insulin 6 units subcu I am planning to repeat the potassium around 5 PM today. 06/11/2018-no acute events in the last 24 hours. Patient is afebrile. Patient [facility] for [facility]. The only holdup is persistently elevated potassium levels. Pulse ox is 92% on 2 L. 06/12/2018-patient is comfortably in the bed pulse oxes are pulse oxes are 94% on 2 L. Patient complained of abdominal pain and vomited one time yesterday evening acute abdominal series was done found to have a severe constipation. And WBC count went up to 23,000. Reason For Visit: PNEUMONIA Physical Exam Vital Signs: Temp Pulse Resp BP Pulse Ox 98.5 F 79 18 142/58 H 98 06/12/18 11:34 06/12/18 14:00 06/12/18 11:34 06/12/18 11:34 06/12/18 11:34 Intake & Output 06/11/18 06/12/18 06/13/18 06:59 06:59 06:59 Intake Total 100 610 Balance 100 610 Weight 53 kg 52.4 kg General appearance: PRESENT: no acute distress Head exam: PRESENT: atraumatic Eye exam: PRESENT: PERRLA Neck exam: ABSENT: carotid bruit, JVD, lymphadenopathy, thyromegaly Respiratory exam: PRESENT: decreased breath sounds Cardiovascular exam: PRESENT: tachycardia GI/Abdominal exam: PRESENT: normal bowel sounds, soft. ABSENT: distended, guarding, mass, organolmegaly, rebound, tenderness Extremities exam: PRESENT: full ROM. ABSENT: calf tenderness, clubbing, pedal edema Neurological exam: PRESENT: alert, awake, oriented to person, oriented to place, oriented to time, oriented to situation, CN II-XII grossly intact. ABSENT: motor sensory deficit Psychiatric exam: PRESENT: appropriate affect, normal mood. ABSENT: homicidal ideation, suicidal ideation Results Laboratory Results: 06/12/18 03:48 06/12/18 03:48 06/11/18 06/12/18 06/12/18 17:20 03:48 03:48 WBC 23.2 H RBC 4.17 Hgb 12.4 D Hct 36.9 MCV 89 MCH 29.7 MCHC 33.5 RDW 17.1 H Plt Count 178 Seg Neutrophils % Not Reportable Lymphocytes % Not Reportable Monocytes % Not Reportable Eosinophils % Not Reportable Basophils % Not Reportable Absolute Neutrophils Not Reportable Absolute Lymphocytes Not Reportable Absolute Monocytes Not Reportable Absolute Eosinophils Not Reportable Absolute Basophils Not Reportable Sodium 139.3 Potassium 4.3 D 3.9 Chloride 103 Carbon Dioxide 26 Anion Gap 10 BUN 38 H Creatinine 1.03 Est GFR ( Amer) > 60 Est GFR (Non-Af Amer) 51 L Glucose 115 H Calcium 9.2 Magnesium 2.2 Total Bilirubin 0.5 AST 20 ALT 34 Alkaline Phosphatase 76 Total Protein 6.1 L Albumin 3.7 05/22/18 05/22/18 05/28/18 21:42 21:42 11:00 Creatine Kinase 960 H 25 L CK-MB (CK-2) 6.47 H Troponin I 0.022 05/28/18 05/28/18 05/28/18 11:00 18:34 18:34 Creatine Kinase 28 L CK-MB (CK-2) 0.85 0.85 Troponin I < 0.012 < 0.012 05/29/18 05/29/18 00:20 00:20 Creatine Kinase 23 L CK-MB (CK-2) 0.82 Troponin I < 0.012 Impressions: Abdomen Ultrasound 05/22/18 21:25 IMPRESSION: The gallbladder could not be visualized, due to body habitus and inability to position patient correctly. The common bile duct is normal. 7 cm cyst in the right kidney. Abdomen/Pelvis CT 05/22/18 22:54 IMPRESSION: Fluid within the proximal two thirds of the gallbladder which could be secondary to an underlying diarrheal process. Possible developing bibasilar pneumonia. Chest CT 06/02/18 13:50 IMPRESSION: BILATERAL PLEURAL EFFUSIONS, RIGHT GREATER THAN LEFT, HAVE INCREASED IN SIZE. PATCHY GROUND-GLASS AIRSPACE DISEASE IN THE UPPER LOBES HAS INCREASED SINCE THE PRIOR STUDY. CONSOLIDATION/COMPRESSIVE ATELECTASIS IN THE RIGHT LOWER LOBE. Thoracentesis Ultrasound 06/04/18 11:16 IMPRESSION: SUCCESSFUL THORACENTESIS USING ULTRASOUND GUIDANCE. Head CT 06/08/18 11:16 IMPRESSION: Involutional changes of aging with no acute intracranial imaging findings. EVIDENCE OF ACUTE STROKE: NO. KUB X-Ray 06/11/18 00:00 IMPRESSION: Findings consistent with constipation. This appears to have developed in the interval from the prior CT study. Chest X-Ray 06/12/18 00:00 IMPRESSION: NO ACUTE RADIOGRAPHIC FINDING IN THE CHEST. Assessment & Plan - Diagnosis (1) Acute respiratory failure with hypoxia Is this a current diagnosis for this admission?: Yes Plan: Secondary to multifocal pneumonia. Currently saturating well on 2L via NC but she does report SOB. BIPAP to alternate with NC, 4 hrs on/4 hrs off. 05/26/2018-acute respiratory failure with hypoxia secondary to multifocal pneumonia. Patient is on Rocephin. Today's pulse ox is 96% on 2 L. 05/27/2018-patient is admitted with acute respiratory failure with hypoxia secondary to multifocal pneumonia patient is on IV zosyn patient is comfortably in the bed on 2 L oxygen. T-max is 97.9. To continue the present management .cultures are negative so far. 05/28/2018-patient has multifocal pneumonia and on IV zosyn . Pulse ox is 95% on 2 L. Denies any shortness of breath or chest pains. These cultures are negative so far. T-max is 98.3. 05/29/2018-patient has multifocal pneumonia she is on IV zosyn pulse ox is and I am going to repeat the chest x-ray today 98% 2 L. [id number] chest x-ray still shows right-sided pneumonia. Patient is on Zosyn and azithromycin. Plan is to continue the present management. 05/31/2018 repeat chest x-ray on 05/30/2018 shows right-sided pneumonia patient is on Zosyn and azithromycin she completed 7 days of course of antibiotics I am going to stop the antibiotics today she is afebrile for the last 3-4 days. Patient's pulse ox is 94% on 2 L. 06/01/2018-patient was admitted with right-sided pneumonia. She was started on Zosyn and Zithromax. Work came back negative. Antibiotics were stopped. She is afebrile. Her T-max is 97.7. Since pulse ox is 97% on 1 L. 06/09/2017-patient's pulse ox is 90-94% on room air. Repeat chest x-ray shows very small left pleural effusion. She had recently had a pleural tap was done m ore than 700 cc of fluid was removed waiting for the culture reports. Patient still on levofloxacin. We got in touch with Dr. Weller this morning and he does not have to do to do bronchoscopy because patient is doing better chest x- ray shows significant improvement. He is on a scheduled nebulizations and she is getting CPT. 06/10/2018-patient is off the oxygen from yesterday pulse oxes are 96-98% on room air. Patient is afebrile. Repeat x-ray shows small left pleural effusions. Plan is to continue the present management. Hypoxia resolved. 06/11/2018-pulse ox is 92% on room air. Patient is not in distress. Hypoxia was resolved. She is getting regular scheduled nebulizations and CPT. Chest are negative. Status post thoracentesis more than 700 cc of fluid was removed the cultures are negative so far. Is on levofloxacin which was started on of this month. 06/12/2018-patient pulse ox on room air is 94%. Comfortable in the bed. More alert and more oriented. Hypoxia associated with acute respiratory failure resolving but her WBC went up to 23,000 out for the chest x-ray to rule out any aspiration pneumonia. (2) Colitis Is this a current diagnosis for this admission?: Yes Plan: Resolved. No recurrence of diarrhea or abdominal pain. Flagyl DCed. Switched antibiotics as mentioned above. 05/26/2018 colitis was resolved. Flagyl was discontinued. Presently on azithromycin and Zosyn. 05/27/2018 colitis was resolved Flagyl was discontinued 2 days ago. 05/28/2018 patient denies any abdominal pain diarrhea. Colitis is resolved. 05/29/2018. No complaints of loose stools or diarrhea. No abdominal pains. Colitis was resolved. 05/31/2018 patient has no more episodes of loose stools. Initially she was on Flagyl for colitis. We discontinued Flagyl few days ago she does not have any problem with bowel movements anymore. 06/01/2018 colitis was resolved. 06/09/2018-patient is complaining of nonspecific abdominal pain no diarrhea. She has chronic history of colitis. During the hospital stay his CD4 checked which was negative. 06/10/2018-patient has history of chronic colitis. During the hospital stay C. difficile came back negative. She finished a course of Flagyl. Plan is to c ontinue the present management. 06/11/2018 no complaints of abdominal pain or diarrhea. Colitis resolved. 06/12/2018 patient is complaining of abdominal pain and vomited yesterday we did acute abdominal series wants to have severe constipation I ordered soapsuds enema and started on MiraLAX 60 mg p.o. daily. (3) HCAP (healthcare-associated pneumonia) Is this a current diagnosis for this admission?: Yes Plan: As per number #1. Low threshold for ICU transfer if patient develops desaturation or worsening SOB. Chest CT ordered and shows multifocal pneumonia with extensive right lung consolidation and possible endobronchial plugging. Patient did have recent hospitalization. Broaden antibiotic coverage and switched to vancomycin and Zosyn. Also on azithromycin. Will consult pulmonology for further recommendations. Continue breathing treatments. Will add mucomyst as well. 05/25/18. Hold vancomycin for now as creatinine has slightly trended up. Continue Zosyn and azithromycin. Discussed with Dr. Weller over phone. 05/26/2018 patient failed outpatient antibiotic therapy for pneumonia. CT scan shows multifocal pneumonia with extensive right lung consolidation with possible endobronchial plugging. And history of hospitalization. #1 Zosyn and azithromycin. pulmonary on board. is on board. 05/27 patient came from assisted living to the hospital. CT scan shows multifocal pneumonia with extensive right lung consolidation with possible endobronchial plugging. Patient is on Zosyn and azithromycin. Blood cultures are negative so far. 05/28/2018-on Zosyn and azithromycin. The blood cultures are negative so far. CT scan shows multifocal pneumonia with right lung consolidation. Planning to continue the present management. 05/29/2018-healthcare acquired pneumonia on Zosyn and azithromycin. Cultures are negative. CT scan shows multifocal pneumonia with right lung consolidation. She is getting CPT treatment. Plan to repeat the chest x-ray today. 05/30/2018 patient is afebrile vitals are stable plan is to continue Zosyn and azithromycin. 05/31/2018-patient has health care associated pneumonia healthcare associated pneumonia rather she was treated with Zosyn and azithromycin she completed 8 days of antibiotics and I am going to stop the antibiotics today. 06/01/2018 patient has healthcare associated pneumonia she was treated with Zosyn and azithromycin she completed the course of antibiotic therapy she is off the antibiotics since yesterday. 06/09/2018-patient was initially admitted for right-sided pneumonia she got total of 7 days of antibiotic therapy and antibiotics were discontinued because patient is afebrile but the follow-up CT shows extensive right lung consolidation possible endocardial plugging and with left pleural effusion status post plueral tap was done more than 700 cc of fluid was removed repeat chest x-ray shows no evidence of pneumonia very minimal left pleural effusion 06/10/2018-patient is initially admitted with right-sided pneumonia treated with Zosyn and azithromycin antibiotics were discontinued after 1 week of therapy but follow-up CT scan shows extensive consolidation and left pleural effusion status post thoracentesis was done and antibiotics were restarted presently she is on levofloxacin and she is afebrile. Gram stain of the pleural fluid showing no anaerobic or aerobic organisms. 06/11/2018-patient is on levofloxacin 750 mg IV daily. Afebrile. Cultures are negative so far. The culture from the pleural fluid negative for aerobic or anaerobic growth. AFB culture is pending. Anaerobic aerobic organisms are negative. 06/12/2018-patient has a right-sided pneumonia which was treated with multiple antibiotics presently she is on levofloxacin 750 mg IV daily she is also has a thoracentesis was done the cultures are negative so far. (4) Dementia Is this a current diagnosis for this admission?: Yes Plan: 06/01/2018-patient has history of dementia. She has difficulty in memory and communication. She is also problems with ambulation. Physical therapy consult was done and the recommendation is patient is to be bedbound and can come out of the bed with assistance only. In my opinion patient need to go to acute rehab and she may have to stay there less than 30 days to recover. 06/09/2018-plan is to continue the present management. 06/10/2018-patient has advanced dementia plan is to continue the present management. 06/12/2018 patient has advanced dementia. She is much more alert and oriented today. (5) Hyperkalemia Is this a current diagnosis for this admission?: Yes Plan: 06/10/2018-potassium level came back as 5.6 this morning after getting given Kayexalate repeat potassium is 5.5. Planning to give 1 amp of dextrose with 6 units of regular insulin subcu and will repeat the potassium level around 5 PM today because of the hyperkalemia the plan of discharge to rehab was on hold I am going to order the labs tomorrow and reassess the patient before [facility]. 06/11/2018 potassium level is persistently high today it was 5.5. At 15 g of K ayexalate 1 dose, 1 amp left 50% dextrose and 6 units of regular insulin despite that potassium is 5.5 this morning. Plan today is to give a Kayexalate 60 g p.o. 1 dose, 50% dextrose 1 ampoule with 6 units of regular insulin and a plan to repeat the potassium level level around 5 PM today. Potassium level today is 3.7 hyperkalemia was resolved. - Time Time Spent with patient: 15-24 minutes Medications reviewed and adjusted accordingly: Yes Anticipated discharge: SNF
[2018-06-12] MEDS: LEVOFLOXACIN 750 MG TABLET PO SCH (17:16)
[2018-06-12] MEDS: BIMATOPROST 0.01% OPH SOLN 2.5 ML/BOTTLE OS SCH (21:33)
[2018-06-13] MEDS: CHLORPHENIRAMINE MALEATE 4 MG TABLET PO SCH ×4 (05:09→17:28)
[2018-06-13] MEDS: LEVOTHYROXINE SODIUM 0.088 MG TABLET PO SCH (05:28)
[2018-06-13] MEDS: HEPARIN SOD (PORCINE) 5,000 UNIT/ML 1 ML SYRINGE SUBCUT SCH ×3 (05:29→21:33)
[2018-06-13 05:30] LABS: HEMATOCRIT 33.3 % (36.0-47.0); HEMOGLOBIN 11.2 g/dL (12.0-15.5); MEAN CORPUSCULAR HGB CONC 33.6 g/dL (32.0-36.0); MEAN CORPUSCULAR VOLUME 89 fl (80-97); PLATELET COUNT 162 10^3/uL (150-450); RED BLOOD COUNT 3.73 10^6/uL (3.72-5.28); WHITE BLOOD COUNT 22.9 10^3/uL (4.0-10.5)
[2018-06-13 05:43] LABS: ALANINE AMINOTRANSFERASE 27 U/L (9-52); ALBUMIN 3.3 g/dL (3.5-5.0); ALKALINE PHOSPHATASE 57 U/L (38-126); ANION GAP 10 (5-19); ASPARTATE AMINO TRANSFERASE 16 U/L (14-36); BILIRUBIN,DIRECT 0.3 mg/dL (0.0-0.4); BILIRUBIN,TOTAL 0.6 mg/dL (0.2-1.3); BLOOD UREA NITROGEN 48 mg/dL (7-20); CALCIUM 8.7 mg/dL (8.4-10.2); CARBON DIOXIDE 26 mmol/L (22-30); CHLORIDE 104 mmol/L (98-107); GLUCOSE 129 mg/dL (75-110); SODIUM 139.8 mmol/L (137-145); TOTAL PROTEIN 5.7 g/dL (6.3-8.2)
[2018-06-13 05:54] LABS: ABSOLUTE LYMPHOCYTES# (MANUAL) 0.7 10^3/uL (0.5-4.7); ABSOLUTE MONOCYTES # (MANUAL) 0.5 10^3/uL (0.1-1.4); ABSOLUTE NEUTROPHILS# (MANUAL) 21.5 10^3/uL (1.7-8.2); ANISOCYTOSIS 1+; BASOPHILS % (MANUAL) 0 % (0-2); EOSINOPHILS % (MANUAL) 1 % (0-6); LYMPHOCYTES % (MANUAL) 3 % (13-45); MONOCYTES % (MANUAL) 2 % (3-13); PLATELET COMMENT ADEQUATE; SEGMENTED NEUTROPHILS % (MAN) 94 % (42-78); TOTAL CELLS COUNTED 100; TOXIC GRANULATION 1+
[2018-06-13] MEDS: ACETYLCYSTEINE 10% NEB 400 MG/4 ML VIAL NEB SCH ×2 (07:38→19:36)
[2018-06-13] MEDS: LEVALBUTEROL HCL NEB 0.63 MG/3 ML AMPUL NEB PRN ×2 (07:38→19:36)
[2018-06-13] MEDS: ASPIRIN 81 MG TABLET, CHEWABLE PO SCH (10:27)
[2018-06-13] MEDS: NYSTATIN 500000 UNIT/5 ML UDCUP PO SCH ×4 (10:28→21:34)
[2018-06-13] MEDS: SENNOSIDES/DOCUSATE 8.6-50 MG 1 EACH TABLET PO SCH (10:28)
[2018-06-13] MEDS: AMLODIPINE BESYLATE 5 MG TABLET PO SCH ×2 (10:28→21:34)
[2018-06-13] MEDS: PREDNISONE 10 MG TABLET PO SCH (10:28)
[2018-06-13] MEDS: CALCIUM CARBONATE 250 MG/VITAMIN D3 125 UNIT TABLET PO SCH (10:28)
[2018-06-13] MEDS: POLYETHYLENE GLYCOL 3350 POWDER 17 GM/1 PACKET PO SCH (10:28)
[2018-06-13] MEDS: SERTRALINE HCL 50 MG TABLET PO SCH (10:28)
[2018-06-13] MEDS: LISINOPRIL 10 MG TABLET PO SCH (10:28)
[2018-06-13] MEDS: FLUTICASONE NASAL SPRAY 50 MCG/SPRY 120 SPRAY/16 GM NASL SCH ×2 (10:29→21:34)
--- NOTE | 2018-06-13 11:35 | PDOC PROGRESS REPORT ---
Subjective Progress Note for:: 06/13/18 Subjective:: -This is a 82 year old female assisted living resident with past medical history of CVA and dementia who initially presented with diarrhea was admitted for colitis and bilateral pneumonia. She was started on Rocephin and Flagyl. Chest CT done yesterday 05/24 shows extensive right sided consolidation, multifocal PNA and possible endobronchial plugging. Results discussed with patient and family including son/DPOA on bedside. She is a full code. No acute event overnight. This morning, she is saturating well on 2L of O2 via NC. She says she still has SOB but this has not worsened from yesterday. She is not tachypneic. She continues to have minimally productive cough. Denies chest pain. 05/26/2018-no acute events in the last 24 hours. Afebrile. Pulse ox is 96% on 2 L. Patient is on Rocephin and Flagyl for colitis/bilateral pneumonia. 05/27/2018-no acute events in the last 24 hours. Physical therapy try to work with the patient but because of the increased weakness and gait instability the recommendation is to put the patient on bedrest. To the family about moving her from assisted living to acute rehab for a short physical therapy and they agreed to proceed with the new plan. 05/28/2018-The nurse notified me around 11:00 that patient has a small brief episode of a cardiac arrhythmia. Patient is asymptomatic at the time. The rhythm strips gross cardiac arrhythmia less than 6 seconds. I am going to order 12-lead EKG. given to see the patient talk to the patient patient denies any chest pains denies any shortness of breath. 05/29/2018-patient has not had 3 episodes of cardiac arrhythmia few seconds of V. tach patient is asymptomatic. Cardiology consult was requested and Dr. Bustillo looked at the strip and recommended a change from DuoNeb to Xopenex nebulizations. 05/30/2018-patient is comfortably in the bed no acute events in the last 24 hours. She is afebrile. Waiting for placement. 05/31/2018-no acute events in the last 24 hours. Patient waiting for placement. According to the patient's sister there is no bed is available in [facility] now the [facility]. 06/01/2018-no acute events in the last 24 hours. Patient waiting for placement. Patient is afebrile. Blood pressures are running high this morning. I am going to adjust the blood pressure medications. 06/09/2018-no acute events in the last 24 hours patient is afebrile. She had a pleural tap that was done waiting for the culture reports. Patient pulse ox is 92-94% on room air. 06/10/2018 no acute events in the last 24 hours. Patient is afebrile. Patient potassium level went up to 5.6 this morning and repeat potassium after getting Kayexalate is 5.5. Requested nurse to give dextrose 1 ampoule IV push along with regular insulin 6 units subcu I am planning to repeat the potassium around 5 PM today. 06/11/2018-no acute events in the last 24 hours. Patient is afebrile. Patient waiting for her to go to the care home. The only holdup is persistently elevated potassium levels. Pulse ox is 92% on 2 L. 06/12/2018-patient is comfortably in the bed pulse oxes are pulse oxes are 94% on 2 L. Patient complained of abdominal pain and vomited one time yesterday evening acute abdominal series was done found to have a severe constipation. And WBC count went up to 23,000. 06/13/2018-no acute events in the last 24 hours. Patient is afebrile. Yesterday WBC is 23,000. It was slightly decreased to 22,900 today. Patient T-max is 97.8. Reason For Visit: PNEUMONIA Physical Exam Vital Signs: Temp Pulse Resp BP Pulse Ox 97.8 F 77 18 121/47 L 98 06/13/18 07:26 06/13/18 07:26 06/13/18 07:26 06/13/18 07:26 06/13/18 07:26 Intake & Output 06/12/18 06/13/18 06/14/18 06:59 06:59 06:59 Intake Total 610 620 Balance 610 620 Weight 52.4 kg 52.1 kg General appearance: PRESENT: no acute distress Head exam: PRESENT: atraumatic Eye exam: PRESENT: PERRLA Mouth exam: PRESENT: dry mucosa Neck exam: ABSENT: carotid bruit, JVD, lymphadenopathy, thyromegaly Respiratory exam: PRESENT: clear to auscultation chuy. ABSENT: rales, rhonchi, wheezes GI/Abdominal exam: PRESENT: normal bowel sounds, soft. ABSENT: distended, guarding, mass, organolmegaly, rebound, tenderness Extremities exam: PRESENT: full ROM. ABSENT: calf tenderness, clubbing, pedal edema Neurological exam: PRESENT: alert, awake, other - Advanced dementia. Psychiatric exam: PRESENT: anxious Results Laboratory Results: 06/13/18 03:56 06/13/18 03:56 06/13/18 06/13/18 03:56 03:56 WBC 22.9 H RBC 3.73 Hgb 11.2 L Hct 33.3 L MCV 89 MCH 30.0 MCHC 33.6 RDW 17.0 H Plt Count 162 Seg Neutrophils % Not Reportable Lymphocytes % Not Reportable Monocytes % Not Reportable Eosinophils % Not Reportable Basophils % Not Reportable Absolute Neutrophils Not Reportable Absolute Lymphocytes Not Reportable Absolute Monocytes Not Reportable Absolute Eosinophils Not Reportable Absolute Basophils Not Reportable Sodium 139.8 Potassium 4.0 Chloride 104 Carbon Dioxide 26 Anion Gap 10 BUN 48 H Creatinine 1.09 Est GFR ( Amer) 58 L Est GFR (Non-Af Amer) 48 L Glucose 129 H Calcium 8.7 Magnesium 2.5 H Total Bilirubin 0.6 AST 16 ALT 27 Alkaline Phosphatase 57 Total Protein 5.7 L Albumin 3.3 L 05/22/18 05/22/18 05/28/18 21:42 21:42 11:00 Creatine Kinase 960 H 25 L CK-MB (CK-2) 6.47 H Troponin I 0.022 05/28/18 05/28/18 05/28/18 11:00 18:34 18:34 Creatine Kinase 28 L CK-MB (CK-2) 0.85 0.85 Troponin I < 0.012 < 0.012 05/29/18 05/29/18 00:20 00:20 Creatine Kinase 23 L CK-MB (CK-2) 0.82 Troponin I < 0.012 Impressions: Abdomen Ultrasound 05/22/18 21:25 IMPRESSION: The gallbladder could not be visualized, due to body habitus and inability to position patient correctly. The common bile duct is normal. 7 cm cyst in the right kidney. Abdomen/Pelvis CT 05/22/18 22:54 IMPRESSION: Fluid within the proximal two thirds of the gallbladder which could be secondary to an underlying diarrheal process. Possible developing bibasilar pneumonia. Chest CT 06/02/18 13:50 IMPRESSION: BILATERAL PLEURAL EFFUSIONS, RIGHT GREATER THAN LEFT, HAVE INCREASED IN SIZE. PATCHY GROUND-GLASS AIRSPACE DISEASE IN THE UPPER LOBES HAS INCREASED SINCE THE PRIOR STUDY. CONSOLIDATION/COMPRESSIVE ATELECTASIS IN THE RIGHT LOWER LOBE. Thoracentesis Ultrasound 06/04/18 11:16 IMPRESSION: SUCCESSFUL THORACENTESIS USING ULTRASOUND GUIDANCE. Head CT 06/08/18 11:16 IMPRESSION: Involutional changes of aging with no acute intracranial imaging findings. EVIDENCE OF ACUTE STROKE: NO. KUB X-Ray 06/11/18 00:00 IMPRESSION: Findings consistent with constipation. This appears to have developed in the interval from the prior CT study. Chest X-Ray 06/12/18 00:00 IMPRESSION: NO ACUTE RADIOGRAPHIC FINDING IN THE CHEST. Assessment & Plan - Diagnosis (1) Acute respiratory failure with hypoxia Is this a current diagnosis for this admission?: Yes Plan: Secondary to multifocal pneumonia. Currently saturating well on 2L via NC but she does report SOB. BIPAP to alternate with NC, 4 hrs on/4 hrs off. 05/26/2018-acute respiratory failure with hypoxia secondary to multifocal pneumonia. Patient is on Rocephin. Today's pulse ox is 96% on 2 L. 05/27/2018-patient is admitted with acute respiratory failure with hypoxia secondary to multifocal pneumonia patient is on IV zosyn patient is comfortably in the bed on 2 L oxygen. T-max is 97.9. To continue the present management .cultures are negative so far. 05/28/2018-patient has multifocal pneumonia and on IV zosyn . Pulse ox is 95% on 2 L. Denies any shortness of breath or chest pains. These cultures are negative so far. T-max is 98.3. 05/29/2018-patient has multifocal pneumonia she is on IV zosyn pulse ox is and I am going to repeat the chest x-ray today 98% 2 L. [id number] chest x-ray still shows right-sided pneumonia. Patient is on Zosyn and azithromycin. Plan is to continue the present management. 05/31/2018 repeat chest x-ray on 05/30/2018 shows right-sided pneumonia patient is on Zosyn and azithromycin she completed 7 days of course of antibiotics I am going to stop the antibiotics today she is afebrile for the last 3-4 days. Patient's pulse ox is 94% on 2 L. 06/01/2018-patient was admitted with right-sided pneumonia. She was started on Zosyn and Zithromax. Work came back negative. Antibiotics were stopped. She is afebrile. Her T-max is 97.7. Since pulse ox is 97% on 1 L. 06/09/2017-patient's pulse ox is 90-94% on room air. Repeat chest x-ray shows very small left pleural effusion. She had recently had a pleural tap was done more than 700 cc of fluid was removed waiting for the culture reports. Patient still on levofloxacin. We got in touch with Dr. Weller this morning and he does not have to do to do bronchoscopy because patient is doing better chest x- ray shows significant improvement. He is on a scheduled nebulizations and she is getting CPT. 06/10/2018-patient is off the oxygen from yesterday pulse oxes are 96-98% on room air. Patient is afebrile. Repeat x-ray shows small left pleural effusions. Plan is to continue the present management. Hypoxia resolved. 06/11/2018-pulse ox is 92% on room air. Patient is not in distress. Hypoxia was resolved. She is getting regular scheduled nebulizations and CPT. Chest are negative. Status post thoracentesis more than 700 cc of fluid was removed the cultures are negative so far. Is on levofloxacin which was started on 5th of this month. 06/12/2018-patient pulse ox on room air is 94%. Comfortable in the bed. More alert and more oriented. Hypoxia associated with acute respiratory failure reso lving but her WBC went up to 23,000 out for the chest x-ray to rule out any aspiration pneumonia. 06/13/2018-chest x-ray was done yesterday was negative for pneumonia. But WBC still 22,900 patient is on prednisone I discontinued prednisone today. Plan is to repeat the labs tomorrow. Pulse oxes 96% on room air. (2) Colitis Is this a current diagnosis for this admission?: Yes Plan: Resolved. No recurrence of diarrhea or abdominal pain. Flagyl DCed. Switched antibiotics as mentioned above. 05/26/2018 colitis was resolved. Flagyl was discontinued. Presently on azithromycin and Zosyn. 05/27/2018 colitis was resolved Flagyl was discontinued 2 days ago. 05/28/2018 patient denies any abdominal pain diarrhea. Colitis is resolved. 05/29/2018. No complaints of loose stools or diarrhea. No abdominal pains. Colitis was resolved. 05/31/2018 patient has no more episodes of loose stools. Initially she was on Flagyl for colitis. We discontinued Flagyl few days ago she does not have any problem with bowel movements anymore. 06/01/2018 colitis was resolved. 06/09/2018-patient is complaining of nonspecific abdominal pain no diarrhea. She has chronic history of colitis. During the hospital stay his CD4 checked which was negative. 06/10/2018-patient has history of chronic colitis. During the hospital stay C. difficile came back negative. She finished a course of Flagyl. Plan is to continue the present management. 06/11/2018 no complaints of abdominal pain or diarrhea. Colitis resolved. 06/12/2018 patient is complaining of abdominal pain and vomited yesterday we did acute abdominal series wants to have severe constipation I ordered soapsuds enema and started on MiraLAX 60 mg p.o. daily. 06/13/2018-CT scan shows constipation patient got edema she is getting MiraLAX daily denies any complaints of abdominal pain today. (3) HCAP (healthcare-associated pneumonia) Is this a current diagnosis for this admission?: Yes Plan: As per number #1. Low threshold for ICU transfer if patient develops desaturation or worsening SOB. Chest CT ordered and shows multifocal pneumonia with extensive right lung consolidation and possible endobronchial plugging. Patient did have recent hospitalization. Broaden antibiotic coverage and switched to vancomycin and Zosyn. Also on azithromycin. Will consult pulmonology for further recommendations. Continue breathing treatments. Will add mucomyst as well. 05/25/18. Hold vancomycin for now as creatinine has slightly trended up. Continue Zosyn and azithromycin. Discussed with Dr. Weller over phone. 05/26/2018 patient failed outpatient antibiotic therapy for pneumonia. CT scan shows multifocal pneumonia with extensive right lung consolidation with possible endobronchial plugging. And history of hospitalization. #1 Zosyn and azithromycin. pulmonary on board. is on board. 05/27 patient came from assisted living to the hospital. CT scan shows multifocal pneumonia with extensive right lung consolidation with possible endobronchial plugging. Patient is on Zosyn and azithromycin. Blood cultures are negative so far. 05/28/2018-on Zosyn and azithromycin. The blood cultures are negative so far. CT scan shows multifocal pneumonia with right lung consolidation. Planning to c ontinue the present management. 05/29/2018-healthcare acquired pneumonia on Zosyn and azithromycin. Cultures are negative. CT scan shows multifocal pneumonia with right lung consolidation. She is getting CPT treatment. Plan to repeat the chest x-ray today. 05/30/2018 patient is afebrile vitals are stable plan is to continue Zosyn and azithromycin. 05/31/2018-patient has health care associated pneumonia healthcare associated pneumonia rather she was treated with Zosyn and azithromycin she completed 8 days of antibiotics and I am going to stop the antibiotics today. 06/01/2018 patient has healthcare associated pneumonia she was treated with Zosyn and azithromycin she completed the course of antibiotic therapy she is off the antibiotics since yesterday. 06/09/2018-patient was initially admitted for right-sided pneumonia she got total of 7 days of antibiotic therapy and antibiotics were discontinued because patient is afebrile but the follow-up CT shows extensive right lung consol idation possible endocardial plugging and with left pleural effusion status post plueral tap was done more than 700 cc of fluid was removed repeat chest x-ray shows no evidence of pneumonia very minimal left pleural effusion 06/10/2018-patient is initially admitted with right-sided pneumonia treated with Zosyn and azithromycin antibiotics were discontinued after 1 week of therapy but follow-up CT scan shows extensive consolidation and left pleural effusion status post thoracentesis was done and antibiotics were restarted presently she is on levofloxacin and she is afebrile. Gram stain of the pleural fluid showing no anaerobic or aerobic organisms. 06/11/2018-patient is on levofloxacin 750 mg IV daily. Afebrile. Cultures are negative so far. The culture from the pleural fluid negative for aerobic or anaerobic growth. AFB culture is pending. Anaerobic aerobic organisms are negative. 06/12/2018-patient has a right-sided pneumonia which was treated with multiple antibiotics presently she is on levofloxacin 750 mg IV daily she is also has a thoracentesis was done the cultures are negative so far. Plan is to check the CBC again tomorrow. 06/13/2018-patient has right-sided pneumonia latest chest x-ray does shows resolved pneumonia I am going to discontinue her IV antibiotics from today. (4) Dementia Is this a current diagnosis for this admission?: Yes (5) Hyperkalemia Is this a current diagnosis for this admission?: Yes Plan: 06/10/2018-potassium level came back as 5.6 this morning after getting given Kayexalate repeat potassium is 5.5. Planning to give 1 amp of dextrose with 6 units of regular insulin subcu and will repeat the potassium level around 5 PM today because of the hyperkalemia the plan of discharge to rehab was on hold I am going to order the labs tomorrow and reassess the patient before transferring the patient to the care home. 06/11/2018 potassium level is persistently high today it was 5.5. At 15 g of Kayexalate 1 dose, 1 amp left 50% dextrose and 6 units of regular insulin despite that potassium is 5.5 this morning. Plan today is to give a Kayexalate 60 g p.o. 1 dose, 50% dextrose 1 ampoule with 6 units of regular insulin and a p milagro to repeat the potassium level level around 5 PM today. Potassium level today is 3.7 hyperkalemia was resolved. 06/13/2012 potassium level is 4.0 today. Hyperkalemia is resolved. - Time Time Spent with patient: 15-24 minutes Medications reviewed and adjusted accordingly: Yes Anticipated discharge: SNF
[2018-06-13] MEDS ORDERED: PEG 3350/NA SULF,BICARB,CL/KCL 4000 ML ONE (17:43)
[2018-06-13] MEDS: BIMATOPROST 0.01% OPH SOLN 2.5 ML/BOTTLE OS SCH (21:34)
[2018-06-14] MEDS: CHLORPHENIRAMINE MALEATE 4 MG TABLET PO SCH ×4 (05:27→17:08)
[2018-06-14] MEDS: LEVOTHYROXINE SODIUM 0.088 MG TABLET PO SCH (05:39)
[2018-06-14] MEDS: HEPARIN SOD (PORCINE) 5,000 UNIT/ML 1 ML SYRINGE SUBCUT SCH ×3 (05:39→21:39)
[2018-06-14 06:41] LABS: ABSOLUTE LYMPHOCYTES (AUTO) 1.2 10^3/uL (0.5-4.7); ABSOLUTE MONOCYTES (AUTO) 0.7 10^3/uL (0.1-1.4); ABSOLUTE NEUT (AUTO) 17.3 10^3/uL (1.7-8.2); BASOPHILS % (AUTO) 0.1 % (0-2); EOSINOPHILS % (AUTO) 0.2 % (0-6); HEMATOCRIT 30.3 % (36.0-47.0); HEMOGLOBIN 10.2 g/dL (12.0-15.5); LYMPHOCYTES % (AUTO) 6.3 % (13-45); MEAN CORPUSCULAR HEMOGLOBIN 30.1 pg (27.0-33.4); MEAN CORPUSCULAR HGB CONC 33.6 g/dL (32.0-36.0); MEAN CORPUSCULAR VOLUME 90 fl (80-97); MONOCYTES % (AUTO) 3.8 % (3-13); PLATELET COUNT 158 10^3/uL (150-450); RED BLOOD COUNT 3.38 10^6/uL (3.72-5.28); RED CELL DISTRIBUTION WIDTH 16.9 % (11.5-14.0); SEGMENTED NEUTROPHILS % (AUTO) 89.6 % (42-78); TOTAL CELLS COUNTED % (AUTO) 100 %; WHITE BLOOD COUNT 19.3 10^3/uL (4.0-10.5)
[2018-06-14 07:09] LABS: ALANINE AMINOTRANSFERASE 20 U/L (9-52); ALBUMIN 3.2 g/dL (3.5-5.0); ALKALINE PHOSPHATASE 59 U/L (38-126); ANION GAP 9 (5-19); ASPARTATE AMINO TRANSFERASE 14 U/L (14-36); BILIRUBIN,DIRECT 0.2 mg/dL (0.0-0.4); BILIRUBIN,TOTAL 0.5 mg/dL (0.2-1.3); BLOOD UREA NITROGEN 46 mg/dL (7-20); CALCIUM 8.6 mg/dL (8.4-10.2); CARBON DIOXIDE 29 mmol/L (22-30); CHLORIDE 102 mmol/L (98-107); GLUCOSE 88 mg/dL (75-110); POTASSIUM 3.9 mmol/L (3.6-5.0); SODIUM 139.8 mmol/L (137-145); TOTAL PROTEIN 5.6 g/dL (6.3-8.2)
[2018-06-14] MEDS: LEVALBUTEROL HCL NEB 0.63 MG/3 ML AMPUL NEB PRN (08:01)
[2018-06-14] MEDS: ACETYLCYSTEINE 10% NEB 400 MG/4 ML VIAL NEB SCH (08:01)
[2018-06-14] MEDS: SERTRALINE HCL 50 MG TABLET PO SCH (09:45)
[2018-06-14] MEDS: FLUTICASONE NASAL SPRAY 50 MCG/SPRY 120 SPRAY/16 GM NASL SCH ×2 (09:45→21:39)
[2018-06-14] MEDS: ASPIRIN 81 MG TABLET, CHEWABLE PO SCH (09:46)
[2018-06-14] MEDS: AMLODIPINE BESYLATE 5 MG TABLET PO SCH ×2 (09:46→21:39)
[2018-06-14] MEDS: CALCIUM CARBONATE 250 MG/VITAMIN D3 125 UNIT TABLET PO SCH (09:46)
[2018-06-14] MEDS: SENNOSIDES/DOCUSATE 8.6-50 MG 1 EACH TABLET PO SCH (09:46)
[2018-06-14] MEDS: LISINOPRIL 10 MG TABLET PO SCH (09:46)
[2018-06-14] MEDS: POLYETHYLENE GLYCOL 3350 POWDER 17 GM/1 PACKET PO SCH (09:47)
[2018-06-14] MEDS: NYSTATIN 500000 UNIT/5 ML UDCUP PO SCH ×4 (09:47→21:39)
--- NOTE | 2018-06-14 10:24 | PDOC PROGRESS REPORT ---
Subjective Progress Note for:: 06/14/18 Subjective:: -This is a 82 year old female assisted living resident with past medical history of CVA and dementia who initially presented with diarrhea was admitted for colitis and bilateral pneumonia. She was started on Rocephin and Flagyl. Chest CT done yesterday 05/24 shows extensive right sided consolidation, multifocal PNA and possible endobronchial plugging. Results discussed with patient and family including son/DPOA on bedside. She is a full code. No acute event overnight. This morning, she is saturating well on 2L of O2 via NC. She says she still has SOB but this has not worsened from yesterday. She is not tachypneic. She continues to have minimally productive cough. Denies chest pain. 05/26/2018-no acute events in the last 24 hours. Afebrile. Pulse ox is 96% on 2 L. Patient is on Rocephin and Flagyl for colitis/bilateral pneumonia. 05/27/2018-no acute events in the last 24 hours. Physical therapy try to work with the patient but because of the increased weakness and gait instability the recommendation is to put the patient on bedrest. To the family about moving her from assisted living to acute rehab for a short physical therapy and they agreed to proceed with the new plan. 05/28/2018-The nurse notified me around 11:00 that patient has a small brief episode of a cardiac arrhythmia. Patient is asymptomatic at the time. The rhythm strips gross cardiac arrhythmia less than 6 seconds. I am going to order 12-lead EKG. given to see the patient talk to the patient patient denies any chest pains denies any shortness of breath. 05/29/2018-patient has not had 3 episodes of cardiac arrhythmia few seconds of V. tach patient is asymptomatic. Cardiology consult was requested and Dr. Bustillo looked at the strip and recommended a change from DuoNeb to Xopenex nebulizations. 05/30/2018-patient is comfortably in the bed no acute events in the last 24 hours. She is afebrile. Waiting for placement. 05/31/2018-no acute events in the last 24 hours. Patient waiting for placement. According to the patient's sister there is no bed is available in [facility] now [facility]. 06/01/2018-no acute events in the last 24 hours. Patient waiting for placement. Patient is afebrile. Blood pressures are running high this morning. I am going to adjust the blood pressure medications. 06/09/2018-no acute events in the last 24 hours patient is afebrile. She had a pleural tap that was done waiting for the culture reports. Patient pulse ox is 92-94% on room air. 06/10/2018 no acute events in the last 24 hours. Patient is afebrile. Patient potassium level went up to 5.6 this morning and repeat potassium after getting Kayexalate is 5.5. Requested nurse to give dextrose 1 ampoule IV push along with regular insulin 6 units subcu I am planning to repeat the potassium around 5 PM today. 06/11/2018-no acute events in the last 24 hours. Patient is afebrile. Patient waiting for her to go to the alf. The only holdup is persistently elevated potassium levels. Pulse ox is 92% on 2 L. 06/12/2018-patient is comfortably in the bed pulse oxes are pulse oxes are 94% on 2 L. Patient complained of abdominal pain and vomited one time yesterday evening acute abdominal series was done found to have a severe constipation. And WBC count went up to 23,000. 06/13/2018-no acute events in the last 24 hours. Patient is afebrile. Yesterday WBC is 23,000. It was slightly decreased to 22,900 today. Patient T-max is 97.8. 06/14-patient is afebrile no acute events in the last 24 hours. She patient has severe constipation be tried GoLYTELY and she had a small bowel movement this morning and continues to be severely constipated WBC count slightly came down to 19,300 but she is afebrile for the last 3 days. And is off the antibiotics. Reason For Visit: PNEUMONIA Physical Exam Vital Signs: Temp Pulse Resp BP Pulse Ox 97.9 F 61 16 142/40 H 96 06/14/18 07:55 06/14/18 08:01 06/14/18 08:01 06/14/18 07:55 06/14/18 08:01 Intake & Output 06/13/18 06/14/18 06/15/18 06:59 06:59 06:59 Intake Total 620 180 Output Total 1050 Balance 620 -870 Weight 52.1 kg 51 kg General appearance: PRESENT: no acute distress Head exam: PRESENT: atraumatic Eye exam: PRESENT: PERRLA Mouth exam: PRESENT: moist, tongue midline Teeth exam: PRESENT: poor dentation Neck exam: ABSENT: carotid bruit, JVD, lymphadenopathy, thyromegaly Respiratory exam: PRESENT: clear to auscultation chuy. ABSENT: rales, rhonchi, wheezes Cardiovascular exam: PRESENT: RRR. ABSENT: diastolic murmur, rubs, systolic murmur GI/Abdominal exam: PRESENT: normal bowel sounds, soft. ABSENT: distended, guarding, mass, organolmegaly, rebound, tenderness Neurological exam: PRESENT: alert, awake, oriented to person, oriented to place, oriented to time, oriented to situation, CN II-XII grossly intact. ABSENT: motor sensory deficit Psychiatric exam: PRESENT: appropriate affect, normal mood. ABSENT: homicidal ideation, suicidal ideation Results Laboratory Results: 06/14/18 05:08 06/14/18 05:08 06/14/18 06/14/18 05:08 05:08 WBC 19.3 H RBC 3.38 L Hgb 10.2 L Hct 30.3 L MCV 90 MCH 30.1 MCHC 33.6 RDW 16.9 H Plt Count 158 Seg Neutrophils % 89.6 H Lymphocytes % 6.3 L Monocytes % 3.8 Eosinophils % 0.2 Basophils % 0.1 Absolute Neutrophils 17.3 H Absolute Lymphocytes 1.2 Absolute Monocytes 0.7 Absolute Eosinophils 0.0 Absolute Basophils 0.0 Sodium 139.8 Potassium 3.9 Chloride 102 Carbon Dioxide 29 Anion Gap 9 BUN 46 H Creatinine 1.12 Est GFR ( Amer) 56 L Est GFR (Non-Af Amer) 46 L Glucose 88 Calcium 8.6 Magnesium 2.6 H Total Bilirubin 0.5 AST 14 ALT 20 Alkaline Phosphatase 59 Total Protein 5.6 L Albumin 3.2 L 05/22/18 05/22/18 05/28/18 21:42 21:42 11:00 Creatine Kinase 960 H 25 L CK-MB (CK-2) 6.47 H Troponin I 0.022 05/28/18 05/28/18 05/28/18 11:00 18:34 18:34 Creatine Kinase 28 L CK-MB (CK-2) 0.85 0.85 Troponin I < 0.012 < 0.012 05/29/18 05/29/18 00:20 00:20 Creatine Kinase 23 L CK-MB (CK-2) 0.82 Troponin I < 0.012 Impressions: Abdomen Ultrasound 05/22/18 21:25 IMPRESSION: The gallbladder could not be visualized, due to body habitus and inability to position patient correctly. The common bile duct is normal. 7 cm cyst in the right kidney. Abdomen/Pelvis CT 05/22/18 22:54 IMPRESSION: Fluid within the proximal two thirds of the gallbladder which could be secondary to an underlying diarrheal process. Possible developing bibasilar pneumonia. Chest CT 06/02/18 13:50 IMPRESSION: BILATERAL PLEURAL EFFUSIONS, RIGHT GREATER THAN LEFT, HAVE INCREASED IN SIZE. PATCHY GROUND-GLASS AIRSPACE DISEASE IN THE UPPER LOBES HAS INCREASED SINCE THE PRIOR STUDY. CONSOLIDATION/COMPRESSIVE ATELECTASIS IN THE R IGHT LOWER LOBE. Thoracentesis Ultrasound 06/04/18 11:16 IMPRESSION: SUCCESSFUL THORACENTESIS USING ULTRASOUND GUIDANCE. Head CT 06/08/18 11:16 IMPRESSION: Involutional changes of aging with no acute intracranial imaging findings. EVIDENCE OF ACUTE STROKE: NO. KUB X-Ray 06/11/18 00:00 IMPRESSION: Findings consistent with constipation. This appears to have developed in the interval from the prior CT study. Chest X-Ray 06/12/18 00:00 IMPRESSION: NO ACUTE RADIOGRAPHIC FINDING IN THE CHEST. Assessment & Plan - Diagnosis (1) Acute respiratory failure with hypoxia Is this a current diagnosis for this admission?: Yes Plan: Secondary to multifocal pneumonia. Currently saturating well on 2L via NC but she does report SOB. BIPAP to alternate with NC, 4 hrs on/4 hrs off. 05/26/2018-acute respiratory failure with hypoxia secondary to multifocal pneumonia. Patient is on Rocephin. Today's pulse ox is 96% on 2 L. 05/27/2018-patient is admitted with acute respiratory failure with hypoxia secondary to multifocal pneumonia patient is on IV zosyn patient is comfortably in the bed on 2 L oxygen. T-max is 97.9. To continue the present management .cultures are negative so far. 05/28/2018-patient has multifocal pneumonia and on IV zosyn . Pulse ox is 95% on 2 L. Denies any shortness of breath or chest pains. These cultures are negative so far. T-max is 98.3. 05/29/2018-patient has multifocal pneumonia she is on IV zosyn pulse ox is and I am going to repeat the chest x-ray today 98% 2 L. [id number] chest x-ray still shows right-sided pneumonia. Patient is on Zosyn and azithromycin. Plan is to continue the present management. 05/31/2018 repeat chest x-ray on 05/30/2018 shows right-sided pneumonia patient is on Zosyn and azithromycin she completed 7 days of course of antibiotics I am going to stop the antibiotics today she is afebrile for the last 3-4 days. Patient's pulse ox is 94% on 2 L. 06/01/2018-patient was admitted with right-sided pneumonia. She was started on Zosyn and Zithromax. Work came back negative. Antibiotics were stopped. She is afebrile. Her T-max is 97.7. Since pulse ox is 97% on 1 L. 06/09/2017-patient's pulse ox is 90-94% on room air. Repeat chest x-ray shows very small left pleural effusion. She had recently had a pleural tap was done more than 700 cc of fluid was removed waiting for the culture reports. Patient still on levofloxacin. We got in touch with Dr. Weller this morning and he does not have to do to do bronchoscopy because patient is doing better chest x- ray shows significant improvement. He is on a scheduled nebulizations and she is getting CPT. 06/10/2018-patient is off the oxygen from yesterday pulse oxes are 96-98% on room air. Patient is afebrile. Repeat x-ray shows small left pleural effusions. Plan is to continue the present management. Hypoxia resolved. 06/11/2018-pulse ox is 92% on room air. Patient is not in distress. Hypoxia was resolved. She is getting regular scheduled nebulizations and CPT. Chest are negative. Status post thoracentesis more than 700 cc of fluid was removed the cultures are negative so far. Is on levofloxacin which was started on 5th of this month. 06/12/2018-patient pulse ox on room air is 94%. Comfortable in the bed. More alert and more oriented. Hypoxia associated with acute respiratory failure resolving but her WBC went up to 23,000 out for the chest x-ray to rule out any aspiration pneumonia. 06/13/2018-chest x-ray was done yesterday was negative for pneumonia. But WBC still 22,900 patient is on prednisone I discontinued prednisone today. Plan is to repeat the labs tomorrow. Pulse oxes 96% on room air. 06/14/2018-pulse ox on room air is 94-96%, patient is afebrile. Prednisone was discontinued yesterday. WBC slightly came down to 19,300. Acute on chronic respiratory failure with hypoxia is resolved. And is to recheck the CBC tomorrow. (2) Colitis Is this a current diagnosis for this admission?: Yes Plan: Resolved. No recurrence of diarrhea or abdominal pain. Flagyl DCed. Switched antibiotics as mentioned above. 05/26/2018 colitis was resolved. Flagyl was discontinued. Presently on azithromycin and Zosyn. 05/27/2018 colitis was resolved Flagyl was discontinued 2 days ago. 05/28/2018 patient denies any abdominal pain diarrhea. Colitis is resolved. 05/29/2018. No complaints of loose stools or diarrhea. No abdominal pains. Colitis was resolved. 05/31/2018 patient has no more episodes of loose stools. Initially she was on Flagyl for colitis. We discontinued Flagyl few days ago she does not have any problem with bowel movements anymore. 06/01/2018 colitis was resolved. 06/09/2018-patient is complaining of nonspecific abdominal pain no diarrhea. She has chronic history of colitis. During the hospital stay his CD4 checked which was negative. 06/10/2018-patient has history of chronic colitis. During the hospital stay C. difficile came back negative. She finished a course of Flagyl. Plan is to continue the present management. 06/11/2018 no complaints of abdominal pain or diarrhea. Colitis resolved. 06/12/2018 patient is complaining of abdominal pain and vomited yesterday we did acute abdominal series wants to have severe constipation I ordered soapsuds enema and started on MiraLAX 60 mg p.o. daily. 06/13/2018-CT scan shows constipation patient got edema she is getting MiraLAX daily denies any complaints of abdominal pain today. 2018 patient was initially admitted with colitis and loose stool C. difficile was negative now she is severely constipated and very small bowel movement today she is continued to get GoLYTELY. (3) HCAP (healthcare-associated pneumonia) Is this a current diagnosis for this admission?: Yes Plan: As per number #1. Low threshold for ICU transfer if patient develops desaturat ion or worsening SOB. Chest CT ordered and shows multifocal pneumonia with extensive right lung consolidation and possible endobronchial plugging. Patient did have recent hospitalization. Broaden antibiotic coverage and switched to vancomycin and Zosyn. Also on azithromycin. Will consult pulmonology for further recommendations. Continue breathing treatments. Will add mucomyst as well. 05/25/18. Hold vancomycin for now as creatinine has slightly trended up. Continue Zosyn and azithromycin. Discussed with Dr. Weller over phone. 05/26/2018 patient failed outpatient antibiotic therapy for pneumonia. CT scan shows multifocal pneumonia with extensive right lung consolidation with possible endobronchial plugging. And history of hospitalization. #1 Zosyn and azithromycin. pulmonary on board. is on board. 05/27 patient came from assisted living to the hospital. CT scan shows multifocal pneumonia with extensive right lung consolidation with possible endobronchial plugging. Patient is on Zosyn and azithromycin. Blood cultures are negative so far. 05/28/2018-on Zosyn and azithromycin. The blood cultures are negative so far. CT scan shows multifocal pneumonia with right lung consolidation. Planning to continue the present management. 05/29/2018-healthcare acquired pneumonia on Zosyn and azithromycin. Cultures are negative. CT scan shows multifocal pneumonia with right lung consolidation. She is getting CPT treatment. Plan to repeat the chest x-ray today. 05/30/2018 patient is afebrile vitals are stable plan is to continue Zosyn and azithromycin. 05/31/2018-patient has health care associated pneumonia healthcare associated pneumonia rather she was treated with Zosyn and azithromycin she completed 8 days of antibiotics and I am going to stop the antibiotics today. 06/01/2018 patient has healthcare associated pneumonia she was treated with Zosyn and azithromycin she completed the course of antibiotic therapy she is off the antibiotics since yesterday. 06/09/2018-patient was initially admitted for right-sided pneumonia she got total of 7 days of antibiotic therapy and antibiotics were discontinued because patient is afebrile but the follow-up CT shows extensive right lung consolidation possible endocardial plugging and with left pleural effusion s tatus post plueral tap was done more than 700 cc of fluid was removed repeat chest x-ray shows no evidence of pneumonia very minimal left pleural effusion 06/10/2018-patient is initially admitted with right-sided pneumonia treated with Zosyn and azithromycin antibiotics were discontinued after 1 week of therapy but follow-up CT scan shows extensive consolidation and left pleural effusion status post thoracentesis was done and antibiotics were restarted presently she is on levofloxacin and she is afebrile. Gram stain of the pleural fluid showing no anaerobic or aerobic organisms. 06/11/2018-patient is on levofloxacin 750 mg IV daily. Afebrile. Cultures are negative so far. The culture from the pleural fluid negative for aerobic or anaerobic growth. AFB culture is pending. Anaerobic aerobic organisms are negative. 06/12/2018-patient has a right-sided pneumonia which was treated with multiple antibiotics presently she is on levofloxacin 750 mg IV daily she is also has a thoracentesis was done the cultures are negative so far. Plan is to check the CBC again tomorrow. 06/13/2018-patient has right-sided pneumonia latest chest x-ray does shows resolved pneumonia I am going to discontinue her IV antibiotics from today. 06/14/2018 patient admitted further with her right sided pneumonia she is off the antibiotics afebrile. (4) Dementia Is this a current diagnosis for this admission?: Yes Plan: 06/01/2018-patient has history of dementia. She has difficulty in memory and communication. She is also problems with ambulation. Physical therapy consult was done and the recommendation is patient is to be bedbound and can come out of the bed with assistance only. In my opinion patient need to go to acute rehab and she may have to stay there less than 30 days to recover. 06/09/2018-plan is to continue the present management. 06/10/2018-patient has advanced dementia plan is to continue the present management. 06/12/2018 patient has advanced dementia. She is much more alert and oriented today. 06/14/2018 patient has advanced dementia no agitation no anxiety episodes plan is to continue the present management. (5) Hyperkalemia Is this a current diagnosis for this admission?: Yes Plan: 06/10/2018-potassium level came back as 5.6 this morning after getting given Kayexalate repeat potassium is 5.5. Planning to give 1 amp of dextrose with 6 units of regular insulin subcu and will repeat the potassium level around 5 PM today because of the hyperkalemia the plan of discharge to rehab was on hold I am going to order the labs tomorrow and reassess the patient before transferring the patient to the alf. 06/11/2018 potassium level is persistently high today it was 5.5. At 15 g of Kayexalate 1 dose, 1 amp left 50% dextrose and 6 units of regular insulin despite that potassium is 5.5 this morning. Plan today is to give a Kayexalate 60 g p.o. 1 dose, 50% dextrose 1 ampoule with 6 units of regular insulin and a plan to repeat the potassium level level around 5 PM today. Potassium level today is 3.7 hyperkalemia was resolved. 06/13/2018 potassium level is 4.0 today. Hyperkalemia is resolved. 2018 potassium levels 3.9 hyperkalemia is resolved. - Time Time Spent with patient: 15-24 minutes Medications reviewed and adjusted accordingly: Yes Anticipated discharge: SNF
[2018-06-14] MEDS ORDERED: BISACODYL 10 MG SUPP.RECT PR PRN (18:27)
[2018-06-14] MEDS: BIMATOPROST 0.01% OPH SOLN 2.5 ML/BOTTLE OS SCH (21:40)
[2018-06-15] MEDS: CHLORPHENIRAMINE MALEATE 4 MG TABLET PO SCH ×4 (03:31→17:30)
[2018-06-15] MEDS: LEVOTHYROXINE SODIUM 0.088 MG TABLET PO SCH (05:16)
[2018-06-15] MEDS: HEPARIN SOD (PORCINE) 5,000 UNIT/ML 1 ML SYRINGE SUBCUT SCH ×2 (05:16→13:51)
[2018-06-15 07:04] LABS: ABSOLUTE EOSINOPHILS # (AUTO) 0.1 10^3/uL (0.0-0.6); ABSOLUTE LYMPHOCYTES (AUTO) 1.2 10^3/uL (0.5-4.7); ABSOLUTE MONOCYTES (AUTO) 0.6 10^3/uL (0.1-1.4); ABSOLUTE NEUT (AUTO) 11.6 10^3/uL (1.7-8.2); BASOPHILS % (AUTO) 0.2 % (0-2); EOSINOPHILS % (AUTO) 0.6 % (0-6); HEMATOCRIT 30.1 % (36.0-47.0); HEMOGLOBIN 10.1 g/dL (12.0-15.5); LYMPHOCYTES % (AUTO) 8.8 % (13-45); MEAN CORPUSCULAR HGB CONC 33.7 g/dL (32.0-36.0); MEAN CORPUSCULAR VOLUME 89 fl (80-97); MONOCYTES % (AUTO) 4.8 % (3-13); PLATELET COUNT 138 10^3/uL (150-450); RED BLOOD COUNT 3.38 10^6/uL (3.72-5.28); RED CELL DISTRIBUTION WIDTH 16.7 % (11.5-14.0); SEGMENTED NEUTROPHILS % (AUTO) 85.6 % (42-78); TOTAL CELLS COUNTED % (AUTO) 100 %; WHITE BLOOD COUNT 13.5 10^3/uL (4.0-10.5)
[2018-06-15 07:28] LABS: ALANINE AMINOTRANSFERASE 24 U/L (9-52); ALBUMIN 2.9 g/dL (3.5-5.0); ALKALINE PHOSPHATASE 58 U/L (38-126); ANION GAP 6 (5-19); ASPARTATE AMINO TRANSFERASE 11 U/L (14-36); BILIRUBIN,DIRECT 0.2 mg/dL (0.0-0.4); BILIRUBIN,TOTAL 0.5 mg/dL (0.2-1.3); BLOOD UREA NITROGEN 35 mg/dL (7-20); CALCIUM 8.6 mg/dL (8.4-10.2); CARBON DIOXIDE 28 mmol/L (22-30); CHLORIDE 103 mmol/L (98-107); GLUCOSE 94 mg/dL (75-110); POTASSIUM 4.2 mmol/L (3.6-5.0); SODIUM 136.9 mmol/L (137-145); TOTAL PROTEIN 5.2 g/dL (6.3-8.2)
[2018-06-15] MEDS: CALCIUM CARBONATE 250 MG/VITAMIN D3 125 UNIT TABLET PO SCH (09:38)
[2018-06-15] MEDS: FLUTICASONE NASAL SPRAY 50 MCG/SPRY 120 SPRAY/16 GM NASL SCH (09:38)
[2018-06-15] MEDS: NYSTATIN 500000 UNIT/5 ML UDCUP PO SCH ×3 (09:38→17:30)
[2018-06-15] MEDS: LISINOPRIL 10 MG TABLET PO SCH (09:38)
[2018-06-15] MEDS: SENNOSIDES/DOCUSATE 8.6-50 MG 1 EACH TABLET PO SCH (09:38)
[2018-06-15] MEDS: AMLODIPINE BESYLATE 5 MG TABLET PO SCH (09:38)
[2018-06-15] MEDS: SERTRALINE HCL 50 MG TABLET PO SCH (09:38)
[2018-06-15] MEDS: ASPIRIN 81 MG TABLET, CHEWABLE PO SCH (09:39)
[2018-06-15] MEDS: POLYETHYLENE GLYCOL 3350 POWDER 17 GM/1 PACKET PO SCH (09:39)
--- NOTE | 2018-06-15 13:52 | PDOC TRANSFER SUMMARY ---
General - Admit/Disc Date/PCP Admission Date/Primary Care Provider: 05/23/18 00:46 LIAN TERRY MD Discharge Date: 06/15/18 - Discharge Diagnosis (1) Acute respiratory failure with hypoxia Is this a current diagnosis for this admission?: Yes Summary: Secondary to multifocal pneumonia. Currently saturating well on 2L via NC but she does report SOB. BIPAP to alternate with NC, 4 hrs on/4 hrs off. 05/26/2018-acute respiratory failure with hypoxia secondary to multifocal pneumonia. Patient is on Rocephin. Today's pulse ox is 96% on 2 L. 05/27/2018-patient is admitted with acute respiratory failure with hypoxia secondary to multifocal pneumonia patient is on IV zosyn patient is comfortably in the bed on 2 L oxygen. T-max is 97.9. To continue the present management .cultures are negative so far. 05/28/2018-patient has multifocal pneumonia and on IV zosyn . Pulse ox is 95% on 2 L. Denies any shortness of breath or chest pains. These cultures are negative so far. T-max is 98.3. 05/29/2018-patient has multifocal pneumonia she is on IV zosyn pulse ox is and I am going to repeat the chest x-ray today 98% 2 L. [id number] chest x-ray still shows right-sided pneumonia. Patient is on Zosyn and azithromycin. Plan is to continue the present management. 05/31/2018 repeat chest x-ray on 05/30/2018 shows right-sided pneumonia patient is on Zosyn and azithromycin she completed 7 days of course of antibiotics I am going to stop the antibiotics today she is afebrile for the last 3-4 days. Patient's pulse ox is 94% on 2 L. 06/01/2018-patient was admitted with right-sided pneumonia. She was started on Zosyn and Zithromax. Work came back negative. Antibiotics were stopped. She is afebrile. Her T-max is 97.7. Since pulse ox is 97% on 1 L. 06/09/2017-patient's pulse ox is 90-94% on room air. Repeat chest x-ray shows very small left pleural effusion. She had recently had a pleural tap was done more than 700 cc of fluid was removed waiting for the culture reports. Patient still on levofloxacin. We got in touch with Dr. Weller this morning and he does not have to do to do bronchoscopy because patient is doing better chest x- ray shows significant improvement. He is on a scheduled nebulizations and she is getting CPT. 06/10/2018-patient is off the oxygen from yesterday pulse oxes are 96-98% on room air. Patient is afebrile. Repeat x-ray shows small left pleural effusions. Plan is to continue the present management. Hypoxia resolved. 06/11/2018-pulse ox is 92% on room air. Patient is not in distress. Hypoxia was resolved. She is getting regular scheduled nebulizations and CPT. Chest are negative. Status post thoracentesis more than 700 cc of fluid was removed the cultures are negative so far. Is on levofloxacin which was started on of this month. 06/12/2018-patient pulse ox on room air is 94%. Comfortable in the bed. More alert and more oriented. Hypoxia associated with acute respiratory failure resolving but her WBC went up to 23,000 out for the chest x-ray to rule out any aspiration pneumonia. 06/13/2018-chest x-ray was done yesterday was negative for pneumonia. But WBC still 22,900 patient is on prednisone I discontinued prednisone today. Plan is to repeat the labs tomorrow. Pulse oxes 96% on room air. 06/14/2018-pulse ox on room air is 94-96%, patient is afebrile. Prednisone was discontinued yesterday. WBC slightly came down to 19,300. Acute on chronic respiratory failure with hypoxia is resolved. And is to recheck the CBC tomorrow. 06/15/2018 pulse ox on room air is 94%. Patient is comfortably in the bed in. White cell count came down to 13,000. She is off the steroids. Acute on chronic respiratory failure with hypoxia is resolved. (2) Colitis Is this a current diagnosis for this admission?: Yes Summary: Resolved. No recurrence of diarrhea or abdominal pain. Flagyl DCed. Switched antibiotics as mentioned above. 05/26/2018 colitis was resolved. Flagyl was discontinued. Presently on azithromycin and Zosyn. 05/27/2018 colitis was resolved Flagyl was discontinued 2 days ago. 05/28/2018 patient denies any abdominal pain diarrhea. Colitis is resolved. 05/29/2018. No complaints of loose stools or diarrhea. No abdominal pains. Colitis was resolved. 05/31/2018 patient has no more episodes of loose stools. Initially she was on Flagyl for colitis. We discontinued Flagyl few days ago she does not have any problem with bowel movements anymore. 06/01/2018 colitis was resolved. 06/09/2018-patient is complaining of nonspecific abdominal pain no diarrhea. She has chronic history of colitis. During the hospital stay his CD4 checked which was negative. 06/10/2018-patient has history of chronic colitis. During the hospital stay C. difficile came back negative. She finished a course of Flagyl. Plan is to continue the present management. 06/11/2018 no complaints of abdominal pain or diarrhea. Colitis resolved. 06/12/2018 patient is complaining of abdominal pain and vomited yesterday we did acute abdominal series wants to have severe constipation I ordered soapsuds enema and started on MiraLAX 60 mg p.o. daily. 06/13/2018-CT scan shows constipation patient got edema she is getting MiraLAX daily denies any complaints of abdominal pain today. 06/14 patient was initially admitted with colitis and loose stool C. difficile was negative now she is severely constipated and very small bowel movement today she is continued to get GoLYTELY. 06/15/2018-patient was admitted with colitis and loose stool C. difficile was negative later on should help her constipation she had a big bowel movement this morning constipation was resolved. (3) HCAP (healthcare-associated pneumonia) Is this a current diagnosis for this admission?: Yes Summary: As per number #1. Low threshold for ICU transfer if patient develops desaturation or worsening SOB. Chest CT ordered and shows multifocal pneumonia with extensive right lung consolidation and possible endobronchial plugging. Patient did have recent hospitalization. Broaden antibiotic coverage and switched to vancomycin and Zosyn. Also on azithromycin. Will consult pulmonology for further recommendations. Continue breathing treatments. Will add mucomyst as well. 05/25/18. Hold vancomycin for now as creatinine has slightly trended up. Continue Zosyn and azithromycin. Discussed with Dr. Weller over phone. 05/26/2018 patient failed outpatient antibiotic therapy for pneumonia. CT scan shows multifocal pneumonia with extensive right lung consolidation with possible endobronchial plugging. And history of hospitalization. #1 Zosyn and azithromycin. pulmonary on board. is on board. 05/27 patient came from assisted living to the hospital. CT scan shows multifocal pneumonia with extensive right lung consolidation with possible endobronchial plugging. Patient is on Zosyn and azithromycin. Blood cultures are negative so far. 05/28/2018-on Zosyn and azithromycin. The blood cultures are negative so far. CT scan shows multifocal pneumonia with right lung consolidation. Planning to continue the present management. 05/29/2018-healthcare acquired pneumonia on Zosyn and azithromycin. Cultures are negative. CT scan shows multifocal pneumonia with right lung consolidation. She is getting CPT treatment. Plan to repeat the chest x-ray today. 05/30/2018 patient is afebrile vitals are stable plan is to continue Zosyn and azithromycin. 05/31/2018-patient has health care associated pneumonia healthcare associated pneumonia rather she was treated with Zosyn and azithromycin she completed 8 days of antibiotics and I am going to stop the antibiotics today. 06/01/2018 patient has healthcare associated pneumonia she was treated with Zosyn and azithromycin she completed the course of antibiotic therapy she is off the antibiotics since yesterday. 06/09/2018-patient was initially admitted for right-sided pneumonia she got total of 7 days of antibiotic therapy and antibiotics were discontinued because patient is afebrile but the follow-up CT shows extensive right lung consolidation possible endocardial plugging and with left pleural effusion status post plueral tap was done more than 700 cc of fluid was removed repeat chest x-ray shows no evidence of pneumonia very minimal left pleural effusion 06/10/2018-patient is initially admitted with right-sided pneumonia treated with Zosyn and azithromycin antibiotics were discontinued after 1 week of therapy but follow-up CT scan shows extensive consolidation and left pleural effusion status post thoracentesis was done and antibiotics were restarted presently she is on levofloxacin and she is afebrile. Gram stain of the pleural fluid showing no anaerobic or aerobic organisms. 06/11/2018-patient is on levofloxacin 750 mg IV daily. Afebrile. Cultures are negative so far. The culture from the pleural fluid negative for aerobic or anaerobic growth. AFB culture is pending. Anaerobic aerobic organisms are negative. 06/12/2018-patient has a right-sided pneumonia which was treated with multiple antibiotics presently she is on levofloxacin 750 mg IV daily she is also has a thoracentesis was done the cultures are negative so far. Plan is to check the CBC again tomorrow. 06/13/2018-patient has right-sided pneumonia latest chest x-ray does shows resolved pneumonia I am going to discontinue her IV antibiotics from today. 06/14/2018 patient admitted further with her right sided pneumonia she is off the antibiotics afebrile. 06/15/2018-patient was admitted with healthcare acquired pneumonia initial chest x-rays indicates right-sided pneumonia later on developed pleural effusion status post thoracentesis more than 700 cc of fluid was taken out the cultures came back negative for aerobic and anaerobic organisms. Chest x-rays did not show any further effusions. (4) Dementia Is this a current diagnosis for this admission?: Yes Summary: 06/01/2018-patient has history of dementia. She has difficulty in memory and communication. She is also problems with ambulation. Physical therapy consult was done and the recommendation is patient is to be bedbound and can come out of the bed with assistance only. In my opinion patient need to go to acute rehab and she may have to stay there less than 30 days to recover. 06/09/2018-plan is to continue the present management. 06/10/2018-patient has advanced dementia plan is to continue the present management. 06/12/2018 patient has advanced dementia. She is much more alert and oriented today. 06/14/2018 patient has advanced dementia no agitation no anxiety episodes plan is to continue the present management. 06/15/2018-patient has advanced dementia no problems like anxiety or agitation during the hospital stay. (5) Hyperkalemia Is this a current diagnosis for this admission?: Yes Summary: 06/10/2018-potassium level came back as 5.6 this morning after getting given Jacquelyn exalate repeat potassium is 5.5. Planning to give 1 amp of dextrose with 6 units of regular insulin subcu and will repeat the potassium level around 5 PM today because of the hyperkalemia the plan of discharge to rehab was on hold I am going to order the labs tomorrow and reassess the patient before transferring the patient to the skilled nursing. 06/11/2018 potassium level is persistently high today it was 5.5. At 15 g of Kayexalate 1 dose, 1 amp left 50% dextrose and 6 units of regular insulin despite that potassium is 5.5 this morning. Plan today is to give a Kayexalate 60 g p.o. 1 dose, 50% dextrose 1 ampoule with 6 units of regular insulin and a plan to repeat the potassium level level around 5 PM today. Potassium level today is 3.7 hyperkalemia was resolved. 06/13/2018 potassium level is 4.0 today. Hyperkalemia is resolved. 2018 potassium levels 3.9 hyperkalemia is resolved. 06/15/2018 latest potassium level is 4.2 hyperkalemia is resolved. (6) Leukocytosis Is this a current diagnosis for this admission?: Yes Summary: 06/15/2018-WBC went up to 21,000 days ago and it came down to 13,500 today. patient is afebrile during the time WBC is elevated. T-max today 98.2.. - Additional Information Resuscitation Status: Full Code Home Medications: Amlodipine Besylate [Norvasc 5 mg Tablet] 5 mg PO BID 05/23/18 Aspirin [Aspirin 81 mg Chewable Tablet] 81 mg PO DAILY 05/23/18 Bimatoprost [Lumigan 0.01% Oph Soln 2.5 ml/Bottle] 1 drop OS QHS 05/23/18 Calcium Carbonate/Vitamin D3 [Calcium 600-Vit D3 200 Tablet] 1 each PO DAILY 05/23/18 Cyanocobalamin (Vitamin B-12) [Vitamin B-12 1000 Mcg Tablet] 1 tab PO DAILY 05/23/18 Levothyroxine Sodium [Synthroid 0.088 mg Tablet] 88 mcg PO QAM 05/23/18 Lisinopril [Prinivil 40 mg Tablet] 40 mg PO DAILY 05/23/18 Memantine HCl [Namenda Xr] 28 mg PO DAILY 05/23/18 Multivitamin [Daily Multiple Vitamin] 1 each PO DAILY 05/23/18 Omeprazole Magnesium [Prilosec] 40 mg PO DAILY 05/23/18 Sennosides [Senna] 8.6 mg PO DAILY 05/23/18 Sertraline HCl [Zoloft] 100 mg PO DAILY 05/23/18 History of Present Illness Admission Date/PCP: 05/23/18 00:46 LIAN TERRY MD History of Present Illness: TRACYCarrillo JO is a 82 year old female assisted living resident with past medical history of CVA and dementia. She presents with abdominal pain. In the emergency room she has a CT that suggest colitis and possible early bilateral pneumonia. She started on empiric antibiotics and referred to the hospitalist for admission. Patient is a poor historian but does endorse abdominal pain and diarrhea. No recent history of antibiotics, denies nausea or vomiting. Physical Exam Vital Signs: Temp Pulse Resp BP Pulse Ox 98.1 F 56 L 16 136/37 H 97 06/15/18 11:58 06/15/18 11:58 06/15/18 11:58 06/15/18 11:58 06/15/18 11:58 Intake & Output 06/14/18 06/15/18 06/16/18 06:59 06:59 06:59 Intake Total 180 1030 Output Total 1050 1310 Balance -870 -280 Weight 51 kg 52.9 kg General appearance: PRESENT: no acute distress Head exam: PRESENT: atraumatic Eye exam: PRESENT: PERRLA Mouth exam: PRESENT: moist Neck exam: ABSENT: carotid bruit, JVD, lymphadenopathy, thyromegaly Respiratory exam: PRESENT: decreased breath sounds Pulses: PRESENT: normal dorsalis pedis pul GI/Abdominal exam: PRESENT: normal bowel sounds, soft. ABSENT: distended, guarding, mass, organolmegaly, rebound, tenderness Extremities exam: PRESENT: full ROM. ABSENT: calf tenderness, clubbing, pedal edema Neurological exam: PRESENT: alert, awake, oriented to person, oriented to place, oriented to time, oriented to situation, CN II-XII grossly intact. ABSENT: motor sensory deficit Psychiatric exam: PRESENT: appropriate affect, normal mood. ABSENT: homicidal ideation, suicidal ideation Results Laboratory Results: 06/15/18 06:14 06/15/18 06:14 06/15/18 06/15/18 06:14 06:14 WBC 13.5 H RBC 3.38 L Hgb 10.1 L Hct 30.1 L MCV 89 MCH 30.0 MCHC 33.7 RDW 16.7 H Plt Count 138 L Seg Neutrophils % 85.6 H Lymphocytes % 8.8 L Monocytes % 4.8 Eosinophils % 0.6 Basophils % 0.2 Absolute Neutrophils 11.6 H Absolute Lymphocytes 1.2 Absolute Monocytes 0.6 Absolute Eosinophils 0.1 Absolute Basophils 0.0 Sodium 136.9 L Potassium 4.2 Chloride 103 Carbon Dioxide 28 Anion Gap 6 BUN 35 H Creatinine 0.98 Est GFR ( Amer) > 60 Est GFR (Non-Af Amer) 54 L Glucose 94 Calcium 8.6 Magnesium 2.4 H Total Bilirubin 0.5 AST 11 L ALT 24 Alkaline Phosphatase 58 Total Protein 5.2 L Albumin 2.9 L 05/22/18 05/22/18 05/28/18 21:42 21:42 11:00 Creatine Kinase 960 H 25 L CK-MB (CK-2) 6.47 H Troponin I 0.022 05/28/18 05/28/18 05/28/18 11:00 18:34 18:34 Creatine Kinase 28 L CK-MB (CK-2) 0.85 0.85 Troponin I < 0.012 < 0.012 05/29/18 05/29/18 00:20 00:20 Creatine Kinase 23 L CK-MB (CK-2) 0.82 Troponin I < 0.012 Impressions: Abdomen Ultrasound 05/22/18 21:25 IMPRESSION: The gallbladder could not be visualized, due to body habitus and inability to position patient correctly. The common bile duct is normal. 7 cm cyst in the right kidney. Abdomen/Pelvis CT 05/22/18 22:54 IMPRESSION: Fluid within the proximal two thirds of the gallbladder which could be secondary to an underlying diarrheal process. Possible developing bibasilar pneumonia. Chest CT 06/02/18 13:50 IMPRESSION: BILATERAL PLEURAL EFFUSIONS, RIGHT GREATER THAN LEFT, HAVE INCREASED IN SIZE. PATCHY GROUND-GLASS AIRSPACE DISEASE IN THE UPPER LOBES HAS INCREASED SINCE THE PRIOR STUDY. CONSOLIDATION/COMPRESSIVE ATELECTASIS IN THE RIGHT LOWER LOBE. Thoracentesis Ultrasound 06/04/18 11:16 IMPRESSION: SUCCESSFUL THORACENTESIS USING ULTRASOUND GUIDANCE. Head CT 06/08/18 11:16 IMPRESSION: Involutional changes of aging with no acute intracranial imaging findings. EVIDENCE OF ACUTE STROKE: NO. KUB X-Ray 06/11/18 00:00 IMPRESSION: Findings consistent with constipation. This appears to have developed in the interval from the prior CT study. Chest X-Ray 06/12/18 00:00 IMPRESSION: NO ACUTE RADIOGRAPHIC FINDING IN THE CHEST. Qualifiers - * PATIENT BEING DISCHARGED WITH ANY OF THE FOLLOWING DIAGNOSIS: No VTE patient discharged on overlapping Therapy?: Yes
[2018-06-15 20:13] VITALS: BP 146/77
== END 2018-06-15 20:27 | DRG 189 ==
LOC: ER 20:24 → EH 05-23 00:46 → 5 05-23 02:35
PROVIDERS: ADMIT Internal Medicine; ATTEND Internal Medicine
PROC: 0W993ZX Drainage of Right Pleural Cavity, Percutaneous Approach, Diagnostic (ICD-10-PCS; principal; 2018-06-04)
DX: J96.21 Acute and chronic respiratory failure with hypoxia (principal); J18.1 Lobar pneumonia, unspecified organism; J90 Pleural effusion, not elsewhere classified; K52.9 Noninfective gastroenteritis and colitis, unspecified; K59.00 Constipation, unspecified; E87.5 Hyperkalemia; J44.9 Chronic obstructive pulmonary disease, unspecified; I10 Essential (primary) hypertension; K21.9 Gastro-esophageal reflux disease without esophagitis; F03.90 Unspecified dementia, unspecified severity, without behavioral disturbance, psychotic disturbance, mood disturbance, and anxiety; F32.9 Major depressive disorder, single episode, unspecified; Z79.899 Other long term (current) drug therapy; Z79.82 Long term (current) use of aspirin; Z86.73 Personal history of transient ischemic attack (TIA), and cerebral infarction without residual deficits
CPT/HCPCS: 32555; 36415; 70450; 71045; 71046; 71250; 74018; 74177; 76705; 80048; 80053; 81001; 82550; 82553; 83605; 83615; 83690; 83735; 84132; 84157; 84484; 85025; 85027; 85610; 87015; 87040; 87070; 87075; 87086; 87088; 87116; 87205; 87206; 87493; 88112; 89050; 89055; 90471; 90686; 93005; 93010; 93306; 94640; 94660; 94667; 94668; 94799; 96361; 96365; 96375; 99285; G0008; G8978-GP; G8979-GP; G8987-GO; G8988-GO; G8989-GO; G8996-GN; G8997-GN; G8998-GN; J0360; J0456; J0696; J1644; J1815; J1885; J1956; J2543; J2920; J3370; J3490; J7030; J7040; J7060; J7512; J7614; J7620